=== PATIENT | male | born 1990 | race African-American/Black ===

== ENCOUNTER 2017-04-03 11:24 | Inpatient (IN) | payer SELFPAY ==
[2017-04-03] MEDS ORDERED: NIFEDIPINE CAP 10 MG PO ONE (11:44)
--- NOTE | 2017-04-03 11:44 | DR.GENAD ---
HPI - PCP Primary Care Physician: NFEdna - HPI Comment HPI Comment: PATIENT WOKE THIS AM WITH CHEST PAIN AND INCREASID SOB. PAIN GETTING WORSE. BP ELEVATED IN ED. HAVE HBP ANDNOT TAKING MED CURRENTLY. - Complaint/Symptoms Chief Complaint Doctors Comments: SOB, CHEST PAIN Chief Complaint:: PT C/O SOB WITH CP. PT STATES THE SOB WOKE HIM UP OUT OF SLEEP THIS AM, THEN STARTED HAVING RT SIDED CHEST PAIN. PT STATES THE PAIN IS NOT PRESENT AT CURRENT TIME, BUT THE PAIN HAS BEEN COMING AND GOING. - Nurses notes reviewed Nurses Notes Review: Yes - Source History Provided: Patient - Mode of Arrival Mode of Arrival: Ambulatory - Timing Onset of Chief Complaint: 04/03/17 Came on: Suddenly - Duration Duration: Constant Duration: Hours - Severity Severity: Moderate PMH - PMH Past Medical History: Yes Past Medical History: Hypertension Past Surgical History: No - Family History History of Family Medical Conditions: No - Social History Does patient currently use any type of tobacco product: Yes Have you used tobacco products in the last 12 months: Yes Type of Tobacco Use: Cigarettes Does any household member use tobacco: Yes Alcohol Use: None Do you use any recreational Drugs:: Yes (THC) Lives With: Family Lives Where: Home - infectious screening In the last 2 months have you had wt loss of >10#?: NO Have you had fever, night sweats or hemotysis?: No Have you traveled outside the country in the last 6 months?: No Isolation: Standard ROS - Review of Systems Constitutional: Weakness, Fatigue Eyes: negative: Eye Pain, Discharge ENTM: negative: Ear Pain, Nose Discharge, Nose Congestion, Throat Pain Respiratoy: negative: Productive Cough, Non-Productive Cough, Short of Breath, Wheezing, Hemoptysis Gastrointestinal/Abdominal: negative: Abdominal Pain, Nausea, Vomiting Genitourinary: negative: Dysuria, Frequency, Hematuria Neurological: Headache, Weakness, Dizziness Musculoskeletal: No Symptoms Reported Integumentary: No Symptoms Reported Hematologic/Lymphatic: No Symptoms Reported Endocrine: No Symptoms Reported All Other Systems: Reviewed and Negative PE - Vital Signs Vitals: Temperature 96.5 F Pulse Rate [Apical] 70 Pulse Rate [Right Radial] 109 Pulse Rate 114 Respiratory Rate 16 Blood Pressure [Right Arm] 146/89 Blood Pressure 212/155 O2 Sat by Pulse Oximetry 99 - General Limitations: No Limitations General Appearance: Alert - Head Head Exam: Normal Inspection - Eyes Eye exam: Normal Appearance - ENT ENT Exam: Normal External Ear Exam External Ear Exam: Normal External Inspection TM/Canal Exam: Bilateral Normal Nose Exam: Normal Nose Exam Mouth Exam: Normal Inspection Throat Exam: Normal Inspection - Neck Neck Exam: Trachea Midline. negative: Tenderness, Meningismus, Lymphadenopathy - Chest Chest Inspection: Symmetric Chest Wall Rise - Respiratory Respiratory Exam: Normal Lung Sounds Bilat Respiratory Exam: Bilateral Clear to Auscultation - Cardiovascular Cardiovascular Exam: Regular Rate, Normal Rhythm, Normal Heart Sounds - Abdominal Exam Abdominal Exam: Normal Bowel Sounds, Soft. negative: Tenderness - Extremities Extremities Exam: Normal Inspection - Back Back Exam: Normal Inspection - Neurologic Neurological Exam: Alert, Oriented X3, CN II-XII Intact, Normal Gait, Reflexes Normal. negative: Motor Sensory Deficit - Psychiatric Psychiatric Exam: Normal Affect, Normal Mood - Skin Skin Exam: Normal Color MDM - Differential Diagnosis Differential Diagnosis: CHEST, IA, PNEUMONIA, HYPERTENSION PE, PULMONARY EDEMA Course - Treatment Treatment: SEE ORDERS - Reevaluation 1st: Improved - Education/Counseling Education/Counseling: Patient, Education Educated On: Treatment, Diagnosis ROR - Labs Reviewed Laboratory Results Reviewed?: Yes Result Diagrams: 04/04/17 02:40 04/04/17 02:40 Laboratory: WBC 8.4 X10^3/uL (3.6-10.0) 04/03/17 11:53 RBC 5.25 X10^6/uL (4.7-6.0) 04/03/17 11:53 Hgb 12.3 g/dL (13.5-18.0) L 04/03/17 11:53 Hct 38.3 % (42.0-54.0) L 04/03/17 11:53 MCV 72.8 fL (80.0-100.0) L 04/03/17 11:53 MCH 23.4 pg (27.0-34.0) L 04/03/17 11:53 MCHC 32.2 g/dL (33.0-35.0) L 04/03/17 11:53 RDW 15.6 % (11.6-16.5) 04/03/17 11:53 Plt Count 397 X10^3/uL (150.0-450.0) 04/03/17 11:53 Plt Count Comment Adequate (ADEQUATE) 04/03/17 11:53 MPV 7.4 fL (7.4-11.0) 04/03/17 11:53 Neut % 60.4 % (42.0-75.0) 04/03/17 11:53 Lymph % 27.1 % (21.0-51.0) 04/03/17 11:53 [place] % 10.9 % (0.0-13.0) 04/03/17 11:53 Eos % 1.0 % (0.9-2.9) 04/03/17 11:53 Baso % 0.6 % (0.2-1.0) 04/03/17 11:53 Neut # 5.1 x10^3/uL (2.2-4.8) H 04/03/17 11:53 Lymph # 2.3 X10^3/uL (1.3-2.9) 04/03/17 11:53 [place] # 0.9 x10^3/uL (0.3-0.8) H 04/03/17 11:53 Eos # 0.1 x10^3/uL (0.0-0.2) 04/03/17 11:53 Baso # 0.0 X10^3/uL (0.0-0.1) 04/03/17 11:53 Absolute Nucleated RBC 0.0 /100WBC 04/03/17 11:53 Plt Morphology Comment Normal (NORMAL) 04/03/17 11:53 RBC Morphology Abnormal (NORMAL) 04/03/17 11:53 Hypochromasia Slight A 04/03/17 11:53 Microcytosis Slight A 04/03/17 11:53 INR Target Range - 04/03/17 11:53 INR 1.11 (0.8-1.3) 04/03/17 11:53 PTT 30.2 SECONDS (22.9-36.5) 04/03/17 11:53 PTT Comment - 04/03/17 11:53 D-Dimer 1210 ng/mL (0-400) H* 04/03/17 11:53 Sodium 143 mmol/L (136-145) 04/03/17 11:53 Corrected Sodium TNP 04/03/17 11:53 Potassium 4.0 mmol/L (3.5-5.1) 04/03/17 11:53 Chloride 104 mmol/L (98-107) 04/03/17 11:53 Carbon Dioxide 29.0 mmol/L (21-32) 04/03/17 11:53 BUN 14 mg/dL (7-18) 04/03/17 11:53 Creatinine 1.08 mg/dL (0.70-1.30) 04/03/17 11:53 Est GFR (MDRD) Af Amer > 60 (>60) 04/03/17 11:53 Est GFR (MDRD) Non-Af > 60 (>60) 04/03/17 11:53 Glucose 102 mg/dL (65-99) H 04/03/17 11:53 Calcium 8.3 mg/dL (8.5-10.1) L 04/03/17 11:53 Corrected Calcium TNP 04/03/17 11:53 Magnesium 1.7 mg/dL (1.7-2.9) 04/03/17 11:53 Total Bilirubin 0.40 mg/dL (0.2-1.0) 04/03/17 11:53 AST 84 Units/L (15-37) H 04/03/17 11:53 ALT 137 Units/L (12-78) H 04/03/17 11:53 Alkaline Phosphatase 85 Units/L (46-116) 04/03/17 11:53 Creatine Kinase 593 Units/L (39-308) H 04/03/17 17:19 CK-MB (CK-2) 2.1 ng/mL (0-4.0) 04/03/17 17:19 CK/CKMB % Calc 0.4 % (<4) 04/03/17 17:19 Troponin I 1.38 ng/mL (0-1.5) 04/03/17 17:19 Total Protein 8.0 g/dL (6.4-8.2) 04/03/17 11:53 Albumin 3.6 g/dL (3.4-5.0) 04/03/17 11:53 Globulin 4.4 g/dL (2.5-4.5) 04/03/17 11:53 Albumin/Globulin Ratio 0.8 Ratio (1.1-2.1) L 04/03/17 11:53 Specimen Type Clean catch urine 04/03/17 17:31 Urine Color Yellow (YELLOW) 04/03/17 17:31 Urine Appearance Clear (CLEAR) 04/03/17 17:31 Urine pH 7.0 (5.0 - 8.0) 04/03/17 17:31 Ur Specific [place] 1.005 (1.000-1.030) 04/03/17 17:31 Urine Protein Negative (NEGATIVE) 04/03/17 17:31 Urine Glucose (UA) Negative (NEGATIVE) 04/03/17 17:31 Urine Ketones Negative (NEGATIVE) 04/03/17 17:31 Urine Occult Blood Negative (NEGATIVE) 04/03/17 17:31 Urine Nitrite Negative (NEGATIVE) 04/03/17 17:31 Urine Bilirubin Negative (NEGATIVE) 04/03/17 17:31 Urine Urobilinogen Normal (NORMAL) 04/03/17 17:31 Ur Leukocyte Esterase Negative (NEGATIVE) 04/03/17 17:31 Urine RBC 0 /HPF (NEGATIVE) 04/03/17 17:31 Urine WBC 0 /HPF (NEGATIVE) 04/03/17 17:31 Ur Squamous Epith Cells Negative /HPF (NEGATIVE) 04/03/17 17:31 Urine Bacteria Negative /HPF (NEGATIVE) 04/03/17 17:31 Ur Culture Indicated? No/not indicated 04/03/17 17:31 Urine Opiates Screen Negative (NEG=<300) 04/03/17 17:31 Urine Methadone Screen Negative (NEG=<300) 04/03/17 17:31 Ur Barbiturates Screen Negative (NEG=<200) 04/03/17 17:31 Ur Phencyclidine Scrn Negative (NEG=<25) 04/03/17 17:31 Ur Amphetamines Screen Negative (NEG=<1000) 04/03/17 17:31 U Benzodiazepines Scrn Negative (NEG=<200) 04/03/17 17:31 Urine Cocaine Screen Negative (NEG=<300) 04/03/17 17:31 U Marijuana (THC) Screen Positive (NEG=<50) A 04/03/17 17:31 - XRAY XRAY Interpreted by: Radiologist XRAY Findings: REPORT DISCUSS WITH PATIENT. - Diagnosis Discharge Problem: Chest pain Qualifiers: Chest pain type: precordial pain Qualified Code(s): R07.2 - Precordial pain Hypertension Qualifiers: Hypertension type: essential hypertension Qualified Code(s): I10 - Essential ( primary) hypertension - Discharge Plan Disposition: ADMITTED INPATIENT Condition: Stable - Follow ups/Referrals - Instructions
--- NOTE | 2017-04-03 11:52 | RAD ---
Examination: Portable AP chest History: Chest pain SOB Findings: Cardiomegaly, widened mediastinum consistent with rotation and nonstandard projection. The lungs are grossly clear. The retrocardiac lung is not well visualized. There is no large pleural effu honorio or pneumothorax. Impression: Cardiac enlargement, no acute process. Standard views suggested for more definitive evalu ation when condition permits. Reported By:
[2017-04-03] MEDS ORDERED: NIFEDIPINE CAP 10 MG ONE (11:55)
[2017-04-03 12:06] LABS: BASOPHILS % (AUTO) 0.6 % (0.2-1.0); EOSINOPHILS # (AUTO) 0.1 x10^3/uL (0.0-0.2); HEMATOCRIT 38.3 % (42.0-54.0); HEMOGLOBIN 12.3 g/dL (13.5-18.0); LYMPHOCYTES # (AUTO) 2.3 X10^3/uL (1.3-2.9); LYMPHOCYTES % (AUTO) 27.1 % (21.0-51.0); MEAN CORPUSCULAR HEMOGLOBIN 23.4 pg (27.0-34.0); MEAN CORPUSCULAR HGB CONC 32.2 g/dL (33.0-35.0); MEAN CORPUSCULAR VOLUME 72.8 fL (80.0-100.0); MEAN PLATELET VOLUME 7.4 fL (7.4-11.0); MONOCYTES # (AUTO) 0.9 x10^3/uL (0.3-0.8); MONOCYTES % (AUTO) 10.9 % (0.0-13.0); NEUTROPHILS # (AUTO) 5.1 x10^3/uL (2.2-4.8); NEUTROPHILS % (AUTO) 60.4 % (42.0-75.0); PLATELET COUNT 397 X10^3/uL (150.0-450.0); RED BLOOD COUNT 5.25 X10^6/uL (4.7-6.0); RED CELL DISTRIBUTION WIDTH 15.6 % (11.6-16.5); WHITE BLOOD COUNT 8.4 X10^3/uL (3.6-10.0)
[2017-04-03 12:18] LABS: HYPOCHROMASIA SLIGHT; MICROCYTOSIS SLIGHT; PLATELET MORPHOLOGY COMMENT NORMAL (NORMAL)
[2017-04-03 12:21] LABS: BLOOD UREA NITROGEN 14 mg/dL (7-18); CALCIUM 8.3 mg/dL (8.5-10.1); CHLORIDE 104 mmol/L (98-107); CREATININE 1.08 mg/dL (0.70-1.30); SODIUM 143 mmol/L (136-145); TROPONIN I 1.41 ng/mL (0-1.5); eGFR BLACK RACES > 60 (>60); eGFR NON BLACK RACES > 60 (>60)
[2017-04-03 12:26] LABS: ALANINE AMINOTRANSFERASE 137 Units/L (12-78); ALBUMIN 3.6 g/dL (3.4-5.0); ALKALINE PHOSPHATASE 85 Units/L (46-116); ASPARTATE AMINO TRANSFERASE 84 Units/L (15-37); CKMB % 0.4 % (<4); CREATINE KINASE 613 Units/L (39-308); CREATINE KINASE MB 2.3 ng/mL (0-4.0); MAGNESIUM 1.7 mg/dL (1.7-2.9)
--- NOTE | 2017-04-03 16:35 | CT ---
CTA chest Indication: Chest pain, shortness of breath, elevated D-dimer Technique: Helical CT images of the chest were obtained with IV contrast. Reformatted images in the c oronal and sagittal planes and 3D MIP images were also generated for review. Comparison: Radiograph from same day Findings: Contrast bolus timing is adequate for detection of PTE. No pulmonary thromboembolus is iden tified. There is no pulmonary arterial dilatation or evidence of right heart strain. The heart is mod erately enlarged without pericardial effusion. The thoracic aorta and great vessels are normal in con tour and caliber. The central airways are patent. There is no lymphadenopathy. There are patchy tree- in-bud opacities within the right lower lobe. The remainder of the lungs are clear. No pleural effusi on or pneumothorax is identified. Limited arterial phase images of the upper abdomen demonstrate diffuse hepatic steatosis. No aggressi ve osseous lesions are identified. Impression: No PTE identified. Tree-in-bud opacities within the right lower lobe, compatible with infectious or inflammatory pneumon itis. Moderate cardiomegaly and diffuse hepatic steatosis Reported By:
[2017-04-03] MEDS ORDERED: LOPRESSOR INJ 5 MG AMP IVP ONE ×2 (16:49→21:31)
[2017-04-03] MEDS ORDERED: NITROGLYCERIN IV PREMIX 50 MG 50 MG/250 ML BAG IV PRN ×2 (16:51→21:42)
[2017-04-03] MEDS ORDERED: PLAVIX PO SCH (17:00)
[2017-04-03] MEDS ORDERED: HEPARIN SODIUM INJ 5000 UNITS ONE (17:33)
[2017-04-03] MEDS ORDERED: ZOFRAN INJ 4 MG VIAL ONE (17:44)
[2017-04-03] MEDS ORDERED: NS 1000 ML 1,000 ML ONE (17:44)
[2017-04-03] MEDS ORDERED: MORPHINE SULFATE INJ 4 MG ONE (17:45)
[2017-04-03 17:47] LABS: BILIRUBIN,URINE NEGATIVE (NEGATIVE); BLOOD/HEMOGLOBIN,URINE NEGATIVE (NEGATIVE); GLUCOSE, URINE NEGATIVE (NEGATIVE); KETONES,URINE NEGATIVE (NEGATIVE); LEUKOCYTE ESTERASE ,URINE NEGATIVE (NEGATIVE); NITRITES,URINE NEGATIVE (NEGATIVE); PROTEIN,URINE NEGATIVE (NEGATIVE); UROBILINOGEN,URINE NORMAL (NORMAL)
[2017-04-03] MEDS: HEPARIN SODIUM IN D5W 25,000 UNITS/500 ML BAG IV PRN (17:49)
[2017-04-03 17:50] LABS: CKMB % 0.4 % (<4); CREATINE KINASE MB 2.1 ng/mL (0-4.0)
[2017-04-03] MEDS ORDERED: MORPHINE SULFATE INJ 4 MG IVP ONE (17:51)
[2017-04-03] MEDS ORDERED: ZOFRAN INJ 4 MG VIAL IVP ONE (17:51)
[2017-04-03 17:57] LABS: TROPONIN I 1.38 ng/mL (0-1.5)
[2017-04-03 17:58] LABS: APPEARANCE,URINE CLEAR (CLEAR); BACTERIA,URINE NEGATIVE /HPF (NEGATIVE); COLOR,URINE YELLOW (YELLOW); RBC,URINE 0 /HPF (NEGATIVE); SQUAMOUS EPITHELIAL CELL,UR NEGATIVE /HPF (NEGATIVE)
[2017-04-03] MEDS ORDERED: NS 1000 ML 1,000 ML IV SCH (18:00)
[2017-04-03] MEDS ORDERED: CATAPRES TAB 0.3 MG PO ONE (19:30)
[2017-04-03] MEDS ORDERED: CATAPRES TAB 0.3 MG ONE (19:32)
[2017-04-03 21:02] LABS: CKMB % 0.4 % (<4); CREATINE KINASE MB 1.9 ng/mL (0-4.0); TROPONIN I 1.31 ng/mL (0-1.5)
[2017-04-03] MEDS ORDERED: NORMODYNE INJ 100 MG VIAL IVP ONE (21:34)
[2017-04-03] MEDS ORDERED: NORMODYNE INJ 20 MG VIAL ONE (21:37)
[2017-04-03] MEDS ORDERED: PLAVIX PO STA (21:38)
[2017-04-03] MEDS ORDERED: ATIVAN TAB 1 MG PO PRN (21:42)
[2017-04-03] MEDS ORDERED: HEPARIN SODIUM IN D5W 25,000 UNITS/500 ML BAG IV PRN (21:42)
[2017-04-03] MEDS ORDERED: MORPHINE SULFATE INJ 2 MG INJ IVP PRN (21:42)
[2017-04-03] MEDS ORDERED: FLUVIRIN IM ONE (23:44)
[2017-04-04] MEDS ORDERED: HEPARIN SODIUM INJ 5000 UNITS IVP ONE ×2 (01:41→02:13)
[2017-04-04] MEDS ORDERED: PLAVIX ONE (01:50)
[2017-04-04] MEDS ORDERED: HEPARIN SODIUM INJ 5000 UNITS ONE (01:50)
[2017-04-04] MEDS: ZESTRIL TAB 10 MG PO SCH ×2 (02:09→08:25)
[2017-04-04 03:20] LABS: ALANINE AMINOTRANSFERASE 107 Units/L (12-78); ALKALINE PHOSPHATASE 65 Units/L (46-116); ASPARTATE AMINO TRANSFERASE 47 Units/L (15-37); BLOOD UREA NITROGEN 13 mg/dL (7-18); CALCIUM 7.6 mg/dL (8.5-10.1); CARBON DIOXIDE 28.1 mmol/L (21-32); CHLORIDE 102 mmol/L (98-107); CHOL/HDL RATIO 5.7 (0.0-5.0); CHOLESTEROL 171 mg/dL (0-200); COR CA(FOR HYPOALB) 8.4 mg/dL (8.5-10.1); COR NA(FOR HYPERGLY) 142 mmol/L (136-145); CREATININE 1.19 mg/dL (0.70-1.30); HDL CHOLESTEROL 30 mg/dL (40-60); SODIUM 140 mmol/L (136-145); TOTAL PROTEIN 6.8 g/dL (6.4-8.2); TRIGLYCERIDES 227 mg/dL (0-150); eGFR BLACK RACES > 60 (>60); eGFR NON BLACK RACES > 60 (>60)
[2017-04-04 03:21] LABS: BASOPHILS # (AUTO) 0.1 X10^3/uL (0.0-0.1); EOSINOPHILS # (AUTO) 0.1 x10^3/uL (0.0-0.2); EOSINOPHILS % (AUTO) 1.1 % (0.9-2.9); HEMATOCRIT 33.8 % (42.0-54.0); HEMOGLOBIN 10.8 g/dL (13.5-18.0); LYMPHOCYTES # (AUTO) 2.6 X10^3/uL (1.3-2.9); LYMPHOCYTES % (AUTO) 27.3 % (21.0-51.0); MEAN CORPUSCULAR HEMOGLOBIN 23.2 pg (27.0-34.0); MEAN CORPUSCULAR HGB CONC 32.1 g/dL (33.0-35.0); MEAN CORPUSCULAR VOLUME 72.2 fL (80.0-100.0); MEAN PLATELET VOLUME 7.9 fL (7.4-11.0); MONOCYTES # (AUTO) 0.7 x10^3/uL (0.3-0.8); NEUTROPHILS # (AUTO) 6.1 x10^3/uL (2.2-4.8); NEUTROPHILS % (AUTO) 63.6 % (42.0-75.0); PLATELET COUNT 351 X10^3/uL (150.0-450.0); RED BLOOD COUNT 4.67 X10^6/uL (4.7-6.0); RED CELL DISTRIBUTION WIDTH 15.5 % (11.6-16.5); WHITE BLOOD COUNT 9.6 X10^3/uL (3.6-10.0)
[2017-04-04 03:32] LABS: CKMB % 0.4 % (<4); CREATINE KINASE MB 1.6 ng/mL (0-4.0); TROPONIN I 1.09 ng/mL (0-1.5)
[2017-04-04 03:37] LABS: HYPOCHROMASIA 1+; MICROCYTOSIS SLIGHT; PLATELET MORPHOLOGY COMMENT NORMAL (NORMAL)
[2017-04-04] MEDS: HEPARIN SODIUM IN D5W 25,000 UNITS/500 ML BAG IV PRN (08:25)
--- NOTE | 2017-04-04 08:34 | RAD ---
Examination: Portable AP chest History: SOB Comparison reference 04/03/2017 Findings: Moderate cardiomegaly with essentially clear lungs. Overlying anatomy obscures the cervicot horacic junction and superior mediastinum. Impression: Cardiac enlargement, no acute process identified. Reported By:
[2017-04-04] MEDS ORDERED: PLAVIX PO SCH (09:00)
[2017-04-04] MEDS ORDERED: LOPRESSOR TAB 50 MG PO SCH (09:00)
[2017-04-04] MEDS ORDERED: PROTONIX INJ 40 MG VIAL IVP SCH (09:00)
[2017-04-04] MEDS ORDERED: FLUVIRIN IM ONE (09:09)
[2017-04-04 10:47] LABS: CKMB % 0.5 % (<4); CREATINE KINASE MB 1.9 ng/mL (0-4.0); TROPONIN I 0.98 ng/mL (0-1.5)
[2017-04-04 11:40] VITALS: BMI 47.5
[2017-04-04] MEDS ORDERED: ECOTRIN TAB 325 MG PO SCH (12:00)
[2017-04-04 14:56] VITALS: BP 140/99
[2017-04-04] MEDS ORDERED: ZESTRIL TAB 10 MG PO SCH (21:00)
== END 2017-04-04 14:35 | disposition home or self-care (01) | DRG 313 ==
LOC: EDBD 11:39 → ER 11:39 → ICU 21:40
PROVIDERS: ADMIT Internal Medicine; ATTEND Internal Medicine
PROC: 3E0234Z Introduction of Serum, Toxoid and Vaccine into Muscle, Percutaneous Approach (ICD-10-PCS; principal; 2017-04-04)
DX: R07.2 Precordial pain (principal); I24.8 Other forms of acute ischemic heart disease; R06.02 Shortness of breath; I10 Essential (primary) hypertension; R94.31 Abnormal electrocardiogram [ECG] [EKG]; F12.90 Cannabis use, unspecified, uncomplicated; R94.39 Abnormal result of other cardiovascular function study; Z23 Encounter for immunization
CPT/HCPCS: 36415; 71010; 71275; 80053; 80061; 80307; 81001; 82550; 82553; 83735; 84484; 85025; 85378; 85610; 85730; 90686; 93005; 93010; 93041; 94760; 96365; 96367; 96374; 96375; 99284; 99285; A4216; A4222; C9113; G0434; J1644; J2270; J2405; J3490

== ENCOUNTER 2017-06-25 08:59 | Emergency (ER) | payer SELFPAY ==
[2017-06-25 09:04] VITALS: BMI 46.3
[2017-06-25] MEDS ORDERED: CATAPRES TAB 0.2 MG PO ONE (09:31)
[2017-06-25] MEDS ORDERED: CATAPRES TAB 0.2 MG ONE (09:32)
--- NOTE | 2017-06-25 09:35 | DR.GENAD ---
HPI - PCP Primary Care Physician: NFD - Complaint/Symptoms Chief Complaint Doctors Comments: Patient presents for evaluatin of blood pressure. He reports that the BP is elevated. He is out of medication. He has no primary care physician. he reports to take hydralazine, Hctz,Lisinopril and corez. Chief Complaint:: PT C/O SOB AND HIGH BLOOD PRESSURE. PT STATES HE RAN OUT OF HIS BLOOD PRESSURE MEDICATION YESTERDAY AND GOT THEM REFILLED, AND HE HAS TAKEN HIS MEDICATIONS THEY HAVE JUST NOT KICKED IN YET AND HE IS WORRIED. PT DENIES HEADACHE. NAD NOTED AT THIS TIME. PT IS NOT NOTED TO BE SOB AT THIS TIME. - Source History Provided: Patient - Mode of Arrival Mode of Arrival: Ambulatory - Timing Onset of Chief Complaint: 06/25/17 PMH - PMH Past Medical History: Yes Past Medical History: Hypertension Past Surgical History: No - Family History History of Family Medical Conditions: Yes Family Medical History: Hypertension - Social History Does patient currently use any type of tobacco product: No Have you used tobacco products in the last 12 months: No Type of Tobacco Use: None Does any household member use tobacco: Yes Alcohol Use: None Do you use any recreational Drugs:: Yes (THC) Lives With: Family Lives Where: Home - infectious screening In the last 2 months have you had wt loss of >10#?: NO Have you had fever, night sweats or hemotysis?: No Have you traveled outside the country in the last 6 months?: No Isolation: Standard ROS - Review of Systems Eyes: No Symptoms Reported ENTM: No Symptoms Reported Respiratoy: No Symptoms Reported Cardiovascular: No Symptoms Reported Gastrointestinal/Abdominal: No Symptoms Reported Genitourinary: No Symptoms Reported Neurological: No Symptoms Reported Musculoskeletal: No Symptoms Reported Integumentary: No Symptoms Reported Hematologic/Lymphatic: No Symptoms Reported Endocrine: No Symptoms Reported Psychiatric: No Symptoms Reported All Other Systems: Reviewed and Negative PE - Vital Signs Vitals: Temperature 97.2 F Pulse Rate [Right Radial] 100 Pulse Rate 106 Respiratory Rate 20 Blood Pressure [Right Arm] 179/133 Blood Pressure 185/123 O2 Sat by Pulse Oximetry 100 - General General Appearance: Alert, In No Apparent Distress - Head Head Exam: Normal Inspection, Atraumatic - Eyes Eye exam: Normal Appearance, PERRL, EOMI - ENT ENT Exam: Normal Exam External Ear Exam: Normal External Inspection TM/Canal Exam: Bilateral Normal Nose Exam: Normal Nose Exam Mouth Exam: Normal Inspection Throat Exam: Normal Inspection - Neck Neck Exam: Normal Inspection - Chest Chest Inspection: Normal Inspection - Respiratory Respiratory Exam: Normal Lung Sounds Bilat Respiratory Exam: Bilateral Clear to Auscultation - Cardiovascular Cardiovascular Exam: Regular Rate, Normal Rhythm - Abdominal Exam Abdominal Exam: Normal Inspection Abdominal Tenderness: negative: RUQ, RLQ, LUQ, LLQ, Epigastrium, Suprapubic, Diffuse, Mild, Moderate, Severe, Other - Extremities Extremities Exam: Normal Inspection, Full ROM - Back Back Exam: Normal Inspection - Neurologic Neurological Exam: Alert, Oriented X3, CN II-XII Intact - Psychiatric Psychiatric Exam: Normal Affect - Skin Skin Exam: Warm, Dry, Intact Course - Reevaluation 1st: Improved - Education/Counseling Educated On: Treatment, Diagnosis, Needs for Follow Up ROR - XRAY XRAY Interpreted by: Radiologist (Chest: no acute cardiopulmonary disease) - Diagnosis Discharge Problem: Hypertension Qualifiers: Hypertension type: essential hypertension Qualified Code(s): I10 - Essential ( primary) hypertension - Discharge Plan Condition: Stable - Follow ups/Referrals Follow ups/Referrals: NFD,None [Primary Care Provider] - 3 days - Instructions
--- NOTE | 2017-06-25 09:55 | RAD ---
HISTORY: Chest pain Study: Single view of the chest. Comparison: None. Findings: Cardiomegaly. No focal consolidations, pleural effusions or pneumothorax. Osseous structures demonstr ate no acute abnormality. IMPRESSION: 1. No acute cardiopulmonary process. Reported By:
[2017-06-25 11:00] LABS: BASOPHILS # (AUTO) 0.1 X10^3/uL (0.0-0.1); BASOPHILS % (AUTO) 1.2 % (0.2-1.0); EOSINOPHILS # (AUTO) 0.1 x10^3/uL (0.0-0.2); EOSINOPHILS % (AUTO) 0.7 % (0.9-2.9); HEMATOCRIT 35.3 % (42.0-54.0); HEMOGLOBIN 11.5 g/dL (13.5-18.0); LYMPHOCYTES # (AUTO) 1.8 X10^3/uL (1.3-2.9); MEAN CORPUSCULAR HEMOGLOBIN 22.8 pg (27.0-34.0); MEAN CORPUSCULAR HGB CONC 32.5 g/dL (33.0-35.0); MEAN CORPUSCULAR VOLUME 70.2 fL (80.0-100.0); MEAN PLATELET VOLUME 7.9 fL (7.4-11.0); MONOCYTES # (AUTO) 0.7 x10^3/uL (0.3-0.8); MONOCYTES % (AUTO) 8.1 % (0.0-13.0); NEUTROPHILS # (AUTO) 5.6 x10^3/uL (2.2-4.8); PLATELET COUNT 313 X10^3/uL (150.0-450.0); RED BLOOD COUNT 5.02 X10^6/uL (4.7-6.0); RED CELL DISTRIBUTION WIDTH 16.9 % (11.6-16.5); WHITE BLOOD COUNT 8.3 X10^3/uL (3.6-10.0)
[2017-06-25 11:08] LABS: ALANINE AMINOTRANSFERASE 100 Units/L (12-78); ALBUMIN 3.5 g/dL (3.4-5.0); ALKALINE PHOSPHATASE 77 Units/L (46-116); ASPARTATE AMINO TRANSFERASE 61 Units/L (15-37); BLOOD UREA NITROGEN 16 mg/dL (7-18); CARBON DIOXIDE 27.3 mmol/L (21-32); CHLORIDE 102 mmol/L (98-107); COR NA(FOR HYPERGLY) 140 mmol/L (136-145); CREATININE 1.08 mg/dL (0.70-1.30); SODIUM 140 mmol/L (136-145); TOTAL PROTEIN 8.1 g/dL (6.4-8.2); eGFR BLACK RACES > 60 (>60); eGFR NON BLACK RACES > 60 (>60)
[2017-06-25 11:17] LABS: HYPOCHROMASIA 1+; PLATELET MORPHOLOGY COMMENT NORMAL (NORMAL)
[2017-06-25 11:32] VITALS: BP 180/125
--- NOTE | 2017-06-25 12:20 | CT ---
HISTORY: Shortness of breath, elevated D-dimer Study: CTA chest with contrast for pulmonary embolus Comparison: 04/03/2017 Technique: Axial post-contrast images with coronal, sagittal, and three-dimensional maximum intensity projection images obtained and evaluated. Dose reduction procedures were used with mA/kv adjusted fo r body size. Findings: There is no evidence for acute pulmonary thromboembolic disease. Examination of the mediastinum demon strated no evidence for mediastinal masses, enlarged mediastinal adenopathy or enlarged hilar adenopa thy. The thoracic aorta is normal. The heart remains markedly enlarged. No pleural effusions are iden tified. No chest wall or axillary abnormality is identified. Those portions of the upper abdominal or falguni visualized were within normal limits with the exception of fatty infiltration of the liver. Exam ination of the lung calhoun demonstrated no evidence for nodules, masses, alveolar infiltrates, areas of consolidation, peribronchial thickening, or bronchiectasis. IMPRESSION: No evidence for acute pulmonary thromboembolic disease Cardiomegaly without definite congestive heart failure Lungs clear Fatty infiltration of the liver Reported By:
== END 2017-06-25 12:43 | disposition home or self-care (01) ==
LOC: ER 09:07
DX: I10 Essential (primary) hypertension (principal)
CPT/HCPCS: 36415; 71045; 71275; 80053; 85025; 85378; 96365; 96374; 99283; A4222

== ENCOUNTER 2018-10-25 15:51 | Observation (INO) ==
[2018-10-25] MEDS ORDERED: CATAPRES TAB 0.1 MG PO ONE ×3 (16:05→17:11)
[2018-10-25] MEDS ORDERED: CATAPRES TAB 0.1 MG ONE ×3 (16:06→17:14)
[2018-10-25 16:29] LABS: BASOPHILS % (AUTO) 0.6 % (0.2-1.0); EOSINOPHILS # (AUTO) 0.1 x10^3/uL (0.0-0.2); HEMATOCRIT 35.3 % (42.0-54.0); HEMOGLOBIN 11.4 g/dL (13.5-18.0); LYMPHOCYTES # (AUTO) 1.4 X10^3/uL (1.3-2.9); LYMPHOCYTES % (AUTO) 20.2 % (21.0-51.0); MEAN CORPUSCULAR HEMOGLOBIN 24.1 pg (27.0-34.0); MEAN CORPUSCULAR HGB CONC 32.4 g/dL (33.0-35.0); MEAN CORPUSCULAR VOLUME 74.3 fL (80.0-100.0); MEAN PLATELET VOLUME 7.1 fL (7.4-11.0); MONOCYTES # (AUTO) 0.6 x10^3/uL (0.3-0.8); MONOCYTES % (AUTO) 8.1 % (0.0-13.0); NEUTROPHILS % (AUTO) 70.1 % (42.0-75.0); PLATELET COUNT 312 X10^3/uL (150.0-450.0); RED BLOOD COUNT 4.75 X10^6/uL (4.7-6.0); RED CELL DISTRIBUTION WIDTH 16.1 % (11.6-16.5); WHITE BLOOD COUNT 7.1 X10^3/uL (3.6-10.0)
[2018-10-25 16:39] LABS: ALANINE AMINOTRANSFERASE 29 Units/L (12-78); ALBUMIN 3.8 g/dL (3.4-5.0); ALKALINE PHOSPHATASE 53 Units/L (46-116); ASPARTATE AMINO TRANSFERASE 21 Units/L (15-37); BLOOD UREA NITROGEN 18 mg/dL (7-18); CALCIUM 8.4 mg/dL (8.5-10.1); CARBON DIOXIDE 27.7 mmol/L (21-32); CHLORIDE 103 mmol/L (98-107); CREATININE 1.27 mg/dL (0.70-1.30); SODIUM 141 mmol/L (136-145); eGFR NON BLACK RACES > 60 (>60)
[2018-10-25 16:43] LABS: PLATELET MORPHOLOGY COMMENT NORMAL (NORMAL); POIKILOCYTOSIS SLIGHT
--- NOTE | 2018-10-25 17:04 | DR.DIZZY ---
HPI Time seen Time Seen by Provider: 10/25/18 16:51 PCP Primary Care Physician: ILYA MARAVILLA HPI Comment HPI Comment: Dizzy and almost passed out while at work. PMH of hypertension. No history of cardiovascular disease. Complaint Chief Complaint Doctor Comments: Got hot while at work in non air conditioned facility according to worker. He became dizzy and and hot temperature in the 90s. Chief Complaint:: PT. WAS WORKING AT [employer] WHERE HE GOT TOO HOT AND ALMOST PASSED OUT. PT. STATES HE HAS BEEN DRINKING WATER ALL DAY BUT HAS NOT EATEN ANYTHING. PT. IS COOL AND CLAMMY UPON ARRIVAL TO ER. PT. C/O HEADACHE. Source History Provided: Patient and EMS Mode of Arrival Mode of Arrival: EMS Timing Onset of Chief Complaint: 10/25/18 Context Stroke Symptoms: None PMH PMH Past Medical History: Yes Past Medical History: Hypertension Past Surgical History: No Surgical History: No History Family History History of Family Medical Conditions: Yes Family Medical History: Hypertension Social History Does patient currently use any type of tobacco product: Yes Have you used tobacco products in the last 12 months: Yes Type of Tobacco Use: Cigarettes Does any household member use tobacco: Yes Alcohol Use: Occasionally Do you use any recreational Drugs:: No Lives With: Significant Other Lives Where: Home infectious screening In the last 2 months have you had wt loss of >10#?: NO Have you had fever, night sweats or hemotysis?: No Have you traveled outside the country in the last 6 months?: No Isolation: Standard ROS Review of Systems Constitutional: No Symptoms Reported Eyes: No Symptoms Reported ENTM: No Symptoms Reported Respiratoy: No Symptoms Reported Cardiovascular: No Symptoms Reported Gastrointestinal/Abdominal: No Symptoms Reported Genitourinary: No Symptoms Reported Neurological: Dizziness Musculoskeletal: No Symptoms Reported Integumentary: No Symptoms Reported Hematologic/Lymphatic: No Symptoms Reported Endocrine: No Symptoms Reported Psychiatric: No Symptoms Reported All Other Systems: Reviewed and Negative PE Vital Signs Vitals: Temperature 98.0 F Pulse Rate [Apical] 100 Pulse Rate 82 Respiratory Rate 25 Blood Pressure [Left Arm] 203/118 Blood Pressure [Right Arm] 208/131 Blood Pressure 150/98 O2 Sat by Pulse Oximetry 100 General Limitations: No Limitations and Physical Limitation (obesity) General Appearance: Alert, In No Apparent Distress, Anxious and Obese Head Head Exam: Normal Inspection, Atraumatic and Normocephalic Eyes Eye exam: Normal Appearance, PERRL, EOMI and Scleral Icterus Pupils: Regular, Round: Bilateral Sclera/Conjunctival: Normal Inspection: Bilateral Anterior Chamber: Normal Inspection: Bilateral ENT ENT Exam: Normal Exam, Normal Oropharynx and Normal External Ear Exam Neck Neck Exam: Normal Inspection and Full ROM Chest Chest Inspection: Normal Inspection, Symmetric Chest Wall Rise and Tenderness Respiratory Respiratory Exam: Normal Lung Sounds Bilat Respiratory Exam: Bilateral: Clear to Auscultation Abdominal Exam Abdominal Exam: Normal Inspection (protuberant), Normal Bowel Sounds, Soft and Distention; negative Guarding and Hyperactive Bowel Sounds Rectal Rectal Exam: Deferred Extremeties Extremities Exam: Normal Inspection and Full ROM Back Back Exam: Normal Inspection and Full ROM Neurologic Neurological Exam: Alert, Oriented X3 and CN II-XII Intact Cranial Nerve Exam: EOM Function (II, III, IV, ): Normal Cerebellar Function: Finger to Nose: Normal and Heel to Key: Normal Cerebellar Function: Normal Gait Motor Strength - LUE: 4/5 Motor Strength - RUE: 4/5 Motor Strength - RLE: 1/5 Psychiatric Psychiatric Exam: Normal Affect and Normal Mood Skin Skin Exam: Warm, Dry and Intact MDM Differential Diagnosis Differential Diagnosis: CVA, Dehydration, Electrolyte disorder, Myocardial infarction and TIA COURSE Treatment Treatment: Hypertensive: clonidine 0.1x3 Reevaluation 1st: Improved Consultation Called: 18:38 Consultation Comments: Dr. West agreed to admit to his service for further treatment ROR Labs Reviewed Result Diagrams: 10/25/18 16:20 10/25/18 16:20 Laboratory: WBC 7.1 X10^3/uL (3.6-10.0) 10/25/18 16:20 RBC 4.75 X10^6/uL (4.7-6.0) 10/25/18 16:20 Hgb 11.4 g/dL (13.5-18.0) L 10/25/18 16:20 Hct 35.3 % (42.0-54.0) L 10/25/18 16:20 MCV 74.3 fL (80.0-100.0) L 10/25/18 16:20 MCH 24.1 pg (27.0-34.0) L 10/25/18 16:20 MCHC 32.4 g/dL (33.0-35.0) L 10/25/18 16:20 RDW 16.1 % (11.6-16.5) 10/25/18 16:20 Plt Count 312 X10^3/uL (150.0-450.0) 10/25/18 16:20 Plt Count Comment Adequate (ADEQUATE) 10/25/18 16:20 MPV 7.1 fL (7.4-11.0) L 10/25/18 16:20 Neut % (Auto) 70.1 % (42.0-75.0) 10/25/18 16:20 Lymph % (Auto) 20.2 % (21.0-51.0) L 10/25/18 16:20 [place] % (Auto) 8.1 % (0.0-13.0) 10/25/18 16:20 Eos % (Auto) 1.0 % (0.9-2.9) 10/25/18 16:20 Baso % (Auto) 0.6 % (0.2-1.0) 10/25/18 16:20 Neut # (Auto) 5.0 x10^3/uL (2.2-4.8) H 10/25/18 16:20 Lymph # (Auto) 1.4 X10^3/uL (1.3-2.9) 10/25/18 16:20 [place] # (Auto) 0.6 x10^3/uL (0.3-0.8) 10/25/18 16:20 Eos # (Auto) 0.1 x10^3/uL (0.0-0.2) 10/25/18 16:20 Baso # (Auto) 0.0 X10^3/uL (0.0-0.1) 10/25/18 16:20 Absolute Nucleated RBC 0.0 /100WBC 10/25/18 16:20 Plt Morphology Comment Normal (NORMAL) 10/25/18 16:20 RBC Morphology Abnormal (NORMAL) 10/25/18 16:20 Poikilocytosis Slight A 10/25/18 16:20 Basophilic Stippling Slight A 10/25/18 16:20 Sodium 141 mmol/L (136-145) 10/25/18 16:20 Corrected Sodium TNP 10/25/18 16:20 Potassium 3.3 mmol/L (3.5-5.1) L 10/25/18 16:20 Chloride 103 mmol/L (98-107) 10/25/18 16:20 Carbon Dioxide 27.7 mmol/L (21-32) 10/25/18 16:20 BUN 18 mg/dL (7-18) 10/25/18 16:20 Creatinine 1.27 mg/dL (0.70-1.30) 10/25/18 16:20 Est GFR (MDRD) Af Amer > 60 (>60) 10/25/18 16:20 Est GFR (MDRD) Non-Af > 60 (>60) 10/25/18 16:20 Glucose 97 mg/dL (65-99) 10/25/18 16:20 Calcium 8.4 mg/dL (8.5-10.1) L 10/25/18 16:20 Corrected Calcium TNP 10/25/18 16:20 Total Bilirubin 0.30 mg/dL (0.2-1.0) 10/25/18 16:20 AST 21 Units/L (15-37) 10/25/18 16:20 ALT 29 Units/L (12-78) 10/25/18 16:20 Alkaline Phosphatase 53 Units/L (46-116) 10/25/18 16:20 Creatine Kinase 506 Units/L (39-308) H 10/25/18 22:21 CK-MB (CK-2) 2.7 ng/mL (0-4.0) 10/25/18 22:21 CK/CKMB % Calc 0.5 % (<4) 10/25/18 22:21 Troponin I 1.00 ng/mL (0-1.5) 10/25/18 22:21 Total Protein 8.0 g/dL (6.4-8.2) 10/25/18 16:20 Albumin 3.8 g/dL (3.4-5.0) 10/25/18 16:20 Globulin 4.2 g/dL (2.5-4.5) 10/25/18 16:20 Albumin/Globulin Ratio 0.9 Ratio (1.1-2.1) L 10/25/18 16:20 Specimen Type Random urine 10/25/18 17:04 Urine Color Yellow (YELLOW) 10/25/18 17:04 Urine Appearance Clear (CLEAR) 10/25/18 17:04 Urine pH 6.0 (5.0 - 8.0) 10/25/18 17:04 Ur Specific [place] 1.015 (1.000-1.030) 10/25/18 17:04 Urine Protein 2+ (NEGATIVE) 10/25/18 17:04 Urine Glucose (UA) Negative (NEGATIVE) 10/25/18 17:04 Urine Ketones Negative (NEGATIVE) 10/25/18 17:04 Urine Occult Blood Negative (NEGATIVE) 10/25/18 17:04 Urine Nitrite Negative (NEGATIVE) 10/25/18 17:04 Urine Bilirubin Negative (NEGATIVE) 10/25/18 17:04 Urine Urobilinogen Normal (NORMAL) 10/25/18 17:04 Ur Leukocyte Esterase Negative (NEGATIVE) 10/25/18 17:04 Urine RBC 0-2 /HPF (NONE SEEN) 10/25/18 17:04 Urine WBC 0-2 /HPF (NONE SEEN) 10/25/18 17:04 Ur Squamous Epith Cells Negative /HPF (NEGATIVE) 10/25/18 17:04 Urine Bacteria Negative /HPF (NEGATIVE) 10/25/18 17:04 Hyaline Casts Few /LPF (NEGATIVE) 10/25/18 17:04 Urine Mucus Moderate /HPF (NEGATIVE) 10/25/18 17:04 Ur Culture Indicated? No/not indicated 10/25/18 17:04 Urine Opiates Screen Negative (NEG=<300) 10/25/18 17:03 Urine Methadone Screen Negative (NEG=<300) 10/25/18 17:03 Ur Barbiturates Screen Negative (NEG=<200) 10/25/18 17:03 Ur Phencyclidine Scrn Negative (NEG=<25) 10/25/18 17:03 Ur Amphetamines Screen Negative (NEG=<1000) 10/25/18 17:03 U Benzodiazepines Scrn Negative (NEG=<200) 10/25/18 17:03 Urine Cocaine Screen Negative (NEG=<300) 10/25/18 17:03 U Marijuana (THC) Screen Positive (NEG=<50) A 10/25/18 17:03 Other Results Comments: Chest; Generalized cardiomegaly is noted. However no significant vascular congestion is seen. Lungs are clear with no infiltrate or significant effusion on eihter side. Bony thorax is unremarkable as well. XRAY XRAY Interpreted by: Radiologist Opioid Opioid Risk Tool Total: 0 Total Score Risk Category: Low Risk Copyright: Jose R ROBERTS predicting aberrant behaviors Diagnosis Discharge Problem: Hypertensive urgency ADDITIONAL NOTES Additional Notes Additional Notes: BP 151/104 at admission responded to clonidine 0.3mg x3.
[2018-10-25 17:13] LABS: BILIRUBIN,URINE NEGATIVE (NEGATIVE); BLOOD/HEMOGLOBIN,URINE NEGATIVE (NEGATIVE); GLUCOSE, URINE NEGATIVE (NEGATIVE); KETONES,URINE NEGATIVE (NEGATIVE); LEUKOCYTE ESTERASE ,URINE NEGATIVE (NEGATIVE); NITRITES,URINE NEGATIVE (NEGATIVE); PROTEIN,URINE 2+ (NEGATIVE); UROBILINOGEN,URINE NORMAL (NORMAL)
[2018-10-25] MEDS ORDERED: K-LYTE EFFERVESCENT ONE (17:14)
[2018-10-25 17:19] LABS: CKMB % 0.5 % (<4); CREATINE KINASE MB 3.3 ng/mL (0-4.0); TROPONIN I 1.05 ng/mL (0-1.5)
[2018-10-25 17:21] LABS: APPEARANCE,URINE CLEAR (CLEAR); COLOR,URINE YELLOW (YELLOW)
[2018-10-25 17:22] LABS: BACTERIA,URINE NEGATIVE /HPF (NEGATIVE); HYALINE CASTS, URINE FEW /LPF (NEGATIVE); MUCUS,URINE MODERATE /HPF (NEGATIVE); RBC,URINE 0-2 /HPF (NONE SEEN); SQUAMOUS EPITHELIAL CELL,UR NEGATIVE /HPF (NEGATIVE)
--- NOTE | 2018-10-25 17:59 | RAD ---
Exam: Portable chest History: 27-year-old male with near syncope. Comparison: Previous chest radiograph from 02/17/2018. Findings: Generalized cardiomegaly is noted. However no significant vascular congestion is seen. Lungs are clear with no infiltrate or significant effusion on either side. Bony thorax is unremarkable as well. Impression: Generalized cardiomegaly. However no acute superimposed abnormality is seen on this exam Reported By:
[2018-10-25] MEDS ORDERED: ZANAFLEX PO PRN (18:53)
[2018-10-25] MEDS: NS 1000 ML 1,000 ML IV SCH (20:48)
[2018-10-25 22:51] LABS: CKMB % 0.5 % (<4); CREATINE KINASE MB 2.7 ng/mL (0-4.0)
[2018-10-25 22:54] VITALS: BMI 46.6
[2018-10-26] MEDS: NORMODYNE INJ 20 MG VIAL IV PRN ×3 (01:52→12:14)
[2018-10-26] MEDS: NS 1000 ML 1,000 ML IV SCH ×2 (03:51→12:15)
[2018-10-26 06:21] LABS: ALANINE AMINOTRANSFERASE 47 Units/L (12-78); ALBUMIN 3.2 g/dL (3.4-5.0); ALKALINE PHOSPHATASE 50 Units/L (46-116); ASPARTATE AMINO TRANSFERASE 35 Units/L (15-37); BLOOD UREA NITROGEN 18 mg/dL (7-18); CARBON DIOXIDE 28.6 mmol/L (21-32); CHLORIDE 103 mmol/L (98-107); COR CA(FOR HYPOALB) 8.6 mg/dL (8.5-10.1); CREATININE 1.09 mg/dL (0.70-1.30); MAGNESIUM 1.9 mg/dL (1.7-2.9); SODIUM 141 mmol/L (136-145); TOTAL PROTEIN 7.2 g/dL (6.4-8.2); eGFR NON BLACK RACES > 60 (>60)
[2018-10-26 06:24] LABS: BASOPHILS % (AUTO) 0.6 % (0.2-1.0); EOSINOPHILS # (AUTO) 0.1 x10^3/uL (0.0-0.2); EOSINOPHILS % (AUTO) 1.6 % (0.9-2.9); HEMATOCRIT 34.3 % (42.0-54.0); LYMPHOCYTES % (AUTO) 25.7 % (21.0-51.0); MEAN CORPUSCULAR HGB CONC 32.1 g/dL (33.0-35.0); MEAN CORPUSCULAR VOLUME 74.8 fL (80.0-100.0); MEAN PLATELET VOLUME 7.4 fL (7.4-11.0); MONOCYTES # (AUTO) 0.8 x10^3/uL (0.3-0.8); MONOCYTES % (AUTO) 9.8 % (0.0-13.0); NEUTROPHILS # (AUTO) 4.8 x10^3/uL (2.2-4.8); NEUTROPHILS % (AUTO) 62.3 % (42.0-75.0); PLATELET COUNT 298 X10^3/uL (150.0-450.0); RED BLOOD COUNT 4.58 X10^6/uL (4.7-6.0); RED CELL DISTRIBUTION WIDTH 15.9 % (11.6-16.5); WHITE BLOOD COUNT 7.7 X10^3/uL (3.6-10.0)
[2018-10-26 06:52] LABS: CKMB % 0.6 % (<4); CREATINE KINASE MB 2.5 ng/mL (0-4.0); TROPONIN I 0.96 ng/mL (0-1.5)
[2018-10-26 07:06] LABS: PLATELET MORPHOLOGY COMMENT NORMAL (NORMAL)
[2018-10-26] MEDS ORDERED: CHLORTHALIDONE PO SCH (09:00)
[2018-10-26] MEDS ORDERED: NORVASC TAB 10 MG PO SCH (09:00)
[2018-10-26] MEDS ORDERED: ZESTRIL TAB 40 MG PO SCH (09:00)
[2018-10-26] MEDS ORDERED: TOPROL XL ONE (09:59)
[2018-10-26] MEDS ORDERED: TOPROL XL PO SCH (10:00)
[2018-10-26] MEDS ORDERED: TOPROL XL PO ONE (14:07)
[2018-10-26 14:53] VITALS: BP 142/92
[2018-10-26] MEDS ORDERED: K-LYTE EFFERVESCENT PO ONE (17:13)
== END 2018-10-26 15:05 | disposition home or self-care (01) ==
LOC: ICU 15:51 → ER 15:51 → ICU 19:43
PROVIDERS: ADMIT Obstetrics & Gynecology Obstetrics; ATTEND Obstetrics & Gynecology Obstetrics
DX: F12.10 Cannabis abuse, uncomplicated; D64.89 Other specified anemias; T67.0XXA Heatstroke and sunstroke, initial encounter; Y92.89 Other specified places as the place of occurrence of the external cause; R51 Headache; E87.6 Hypokalemia; Z79.899 Other long term (current) drug therapy; X30.XXXA Exposure to excessive natural heat, initial encounter; R94.31 Abnormal electrocardiogram [ECG] [EKG]; R55 Syncope and collapse; I16.0 Hypertensive urgency
CPT/HCPCS: 36415; 71010; 71045; 80053; 80307; 81001; 82550; 82553; 82607; 82728; 82746; 83020; 83021; 83540; 83735; 84466; 84484; 85025; 93005; 96365; 99284; A4222; G0378; G0434; J3490; J7030; J8499

== ENCOUNTER 2019-03-14 12:15 | Observation (INO) ==
[2019-03-14 12:32] VITALS: BMI 47.9
[2019-03-14] MEDS ORDERED: CATAPRES TAB 0.2 MG PO ONE (13:03)
--- NOTE | 2019-03-14 13:03 | DR.HTN ---
HPI Time Seen Time Seen by Provider: 03/14/19 12:50 Primary Care Physician Primary Care Physician: ERIKA HPI Comment HPI Comment: PATIENT IS 28YR OLD MALE IN THE EMERGENCY ROOM WITH INCREASING SOB, CHEST PAIN, TIGHTNESS AND ELEVATED BLOOD PRESSURE AND ELEVATED HEART RATE. NO FEVER. PATIENT IS WEAK AND TIRED BUT NO NAUSEA, VOMITING OR DIARRHEA. HAVING ACHING, INTERMITTENT 8/10 IN ABDOMEN. HISTORY HYPERTENSION BUT HAVE NOT TAKEN HIS MEDICATION FOR SEVERAL MONTHS. DENIES DYSURIA. PATIENT SAID HE HAVE BEING SWEATING ON AND OFF ALSO. Complaints Chief Complaint Doctors Comments: SOB, ELEVATED BLOOD PRESSURE Chief Complaint:: OUT OF MEDS SINCE AND NOT TAKING ANY BP MEDS. STOMACH HAS BEEN ACHING FOR A WHILE, FEELING WEAK. KEEPS SWEATING. NO FLU SYM PTOMS. Reviewed Nurses Notes Reviewed: Yes Source History Provided: Patient Mode of Arrival Mode of Arrival: Ambulatory Timing Onset of Chief Complaint: 03/13/19 Severity What was the maximum recorded B/P?: 178/121 Severity: Moderate Context Circumstances: Ran out of Medication History of: Hypertension Treatment of HTN Prior to Arrival: No Rx for HTN meds and Noncompliant Associated Signs and Symptoms HTN Associated Signs and Symptoms: Weakness and Shortness of Breath Other History Other History: history hypertension. PMH PMH Past Medical History: Yes Past Medical History: Hypertension Past Surgical History: No Surgical History: No History Family History History of Family Medical Conditions: Yes Family Medical History: Diabetes Mellitus and Hypertension Social History Type of Tobacco Use: Cigarettes Alcohol Use: Occasionally Do you use any recreational Drugs:: Yes Lives With: Alone Lives Where: Home infectious screening In the last 2 months have you had wt loss of >10#?: NO Have you had fever, night sweats or hemotysis?: No Have you traveled outside the country in the last 6 months?: No Isolation: Standard ROS Review of Systems Constitutional: No Symptoms Reported, See HPI and Diaphoresis; negative Fever, Weakness and Fatigue Eyes: No Symptoms Reported and See HPI; negative Eye Pain, Blurred Vision, Photophobia and Diplopia ENTM: No Symptoms Reported and See HPI; negative Ear Pain, Nose Discharge, Nose Congestion and Throat Pain Respiratoy: No Symptoms Reported, See HPI, Short of Breath and Wheezing; negative Productive Cough Cardiovascular: No Symptoms Reported, See HPI, Chest Pain and Palpitations; negative Edema Gastrointestinal/Abdominal: No Symptoms Reported, See HPI and Abdominal Pain; negative Constipation, Diarrhea, Nausea and Vomiting Genitourinary: No Symptoms Reported and See HPI; negative Dysuria, Frequency, Hematuria and Pain Neurological: No Symptoms Reported, See HPI, Headache and Dizziness; negative Weakness Musculoskeletal: No Symptoms Reported and See HPI; negative Back Pain Integumentary: No Symptoms Reported and See HPI; negative Change in Color, Rash and Juandice Hematologic/Lymphatic: No Symptoms Reported and See HPI; negative Easy Bruising and Swollen Glands Endocrine: No Symptoms Reported and See HPI; negative Increased Thirst, Increased Urine and Decreased Appetite Psychiatric: No Symptoms Reported and See HPI All Other Systems: Reviewed and Negative PE Vital Signs Vitals: Temperature 97.8 F Pulse Rate [Apical] 113 Pulse Rate 96 Respiratory Rate 36 Blood Pressure [Left Arm] 180/116 Blood Pressure 137/98 O2 Sat by Pulse Oximetry 100 General Limitations: No Limitations General Appearance: Alert and In Distress Head Head Exam: Normal Inspection, Atraumatic and Normocephalic Eyes Eye exam: Normal Appearance, PERRL and EOMI; negative Scleral Icterus and Conjunctival Injection ENT ENT Exam: Normal Exam, Normal Oropharynx, Normal External Ear Exam and TM's Normal Bilaterally Neck Neck Exam: Normal Inspection and Trachea Midline; negative Tenderness and Lymphadenopathy Chest Chest Inspection: Normal Inspection and Symmetric Chest Wall Rise; negative Tenderness Respiratory Respiratory Exam: Prolonged Expiratory Phase and Respiratory Distress; negative Accessory Muscle Use and Chest Wall Tenderness Respiratory Exam: Bilateral: Wheezing and Bilateral: Rhonchi and Lower: Wheezing and Lower: Rhonchi Cardiovascular Cardiovascular Exam: Tachycardia; negative Systolic Murmur and Diastolic Murmur Abdominal Exam Abdominal Exam: Normal Inspection, Normal Bowel Sounds and Soft; negative Tenderness, Organomegaly and Mass Extremities Extremities Exam: Edema (TRACE EDEMA.) Back Back Exam: negative Tenderness, (R) CVA Tenderness, (L) CVA Tenderness, Paraspinal Tenderness and Vertebral Tenderness Neurologic Neurological Exam: Alert, Oriented X3 and CN II-XII Intact; negative Motor Sensory Deficit Patient Oriented To: Person, Place and Time Speech: Fluid Speech Cranial Nerve Exam: EOM Function (II, III, IV, ): Normal, Facial Sensation (V): Normal, Facial Palsy (VII): Normal, Gag reflex (XI): Normal, Spinal Accessory Function (XI): Normal and Tongue Deviation: Normal Motor Strength - LUE: 5/5 Motor Strength - RUE: 5/5 Upper Motor Neuron Exam: Babinski Sign: Normal Psychiatric Psychiatric Exam: Normal Affect and Normal Mood Skin Skin Exam: Warm, Dry, Intact and Normal Color; negative Rash MDM Differential Diagnosis Differential Diagnosis: CHF, Hypertensive emergency, Medical noncompliance and Pulmonary edema Differential Diagnosis Comment: MO, PNEUMONIA, COURSE Treatment Treatment: SEE ORDERS. CLONIDINE 0.5MG PO, BP DECREASING BUT BP STILL HIGH. STILL HAVING TACHYCARDIA. METOPROLOL 50MG , BP DOWN TO NORMAL RANGE. HEART RATE INPROVE. PATIENT DID NOT WISH TO BE TRANSFER TO A FACILITY WITH CARDIOLOGY SERVICE. HE WISH TO STAY AT THIS HOSPITAL. Reevaluation 2nd: Improved 3rd: Improved Consultation Consultation Comments: DISCUSSED PATIENT WITH DR. SANCHES. HE WILL ADMIT PATIENT. Education/Counseling Education/Counseling: Patient Educated On: Treatment and Diagnosis ROR Labs Reviewed Laboratory Results Reviewed?: Yes Result Diagrams: 03/14/19 13:13 03/14/19 13:13 Laboratory: WBC 9.1 X10^3/uL (3.6-10.0) 03/14/19 13:13 RBC 4.88 X10^6/uL (4.7-6.0) 03/14/19 13:13 Hgb 11.5 g/dL (13.5-18.0) L 03/14/19 13:13 Hct 35.3 % (42.0-54.0) L 03/14/19 13:13 MCV 72.2 fL (80.0-100.0) L 03/14/19 13:13 MCH 23.5 pg (27.0-34.0) L 03/14/19 13:13 MCHC 32.5 g/dL (33.0-35.0) L 03/14/19 13:13 RDW 15.9 % (11.6-16.5) 03/14/19 13:13 Plt Count 415 X10^3/uL (150.0-450.0) 03/14/19 13:13 Plt Count Comment Adequate (ADEQUATE) 03/14/19 13:13 MPV 6.9 fL (7.4-11.0) L 03/14/19 13:13 Neut % (Auto) 69.9 % (42.0-75.0) 03/14/19 13:13 Lymph % (Auto) 20.8 % (21.0-51.0) L 03/14/19 13:13 [place]cle[place] % (Auto) 7.7 % (0.0-13.0) 03/14/19 13:13 Eos % (Auto) 0.5 % (0.9-2.9) L 03/14/19 13:13 Baso % (Auto) 1.1 % (0.2-1.0) H 03/14/19 13:13 Neut # (Auto) 6.4 x10^3/uL (2.2-4.8) H 03/14/19 13:13 Lymph # (Auto) 1.9 X10^3/uL (1.3-2.9) 03/14/19 13:13 [place]cleod # (Auto) 0.7 x10^3/uL (0.3-0.8) 03/14/19 13:13 Eos # (Auto) 0.0 x10^3/uL (0.0-0.2) 03/14/19 13:13 Baso # (Auto) 0.1 X10^3/uL (0.0-0.1) 03/14/19 13:13 Absolute Nucleated RBC 0.1 /100WBC 03/14/19 13:13 Plt Morphology Comment Normal (NORMAL) 03/14/19 13:13 RBC Morphology Abnormal (NORMAL) 03/14/19 13:13 Hypochromasia 1+ A 03/14/19 13:13 Microcytosis Slight A 03/14/19 13:13 Sodium 138 mmol/L (136-145) 03/14/19 13:13 Corrected Sodium 139 mmol/L (136-145) 03/14/19 13:13 Potassium 3.4 mmol/L (3.5-5.1) L 03/14/19 13:13 Chloride 100 mmol/L (98-107) 03/14/19 13:13 Carbon Dioxide 29.3 mmol/L (21-32) 03/14/19 13:13 BUN 16 mg/dL (7-18) 03/14/19 13:13 Creatinine 1.05 mg/dL (0.70-1.30) 03/14/19 13:13 Est GFR (MDRD) Af Amer > 60 (>60) 03/14/19 13:13 Est GFR (MDRD) Non-Af > 60 (>60) 03/14/19 13:13 Glucose 125 mg/dL (65-99) H 03/14/19 13:13 POC Glucose (mg/dL) 132 mg/dL (65-99) H 03/14/19 17:41 Calcium 8.0 mg/dL (8.5-10.1) L 03/14/19 13:13 Corrected Calcium 8.6 mg/dL (8.5-10.1) 03/14/19 13:13 Total Bilirubin 0.90 mg/dL (0.2-1.0) 03/14/19 13:13 AST 31 Units/L (15-37) 03/14/19 13:13 ALT 49 Units/L (12-78) 03/14/19 13:13 Alkaline Phosphatase 60 Units/L (46-116) 03/14/19 13:13 Creatine Kinase 445 Units/L (39-308) H 03/14/19 18:45 CK-MB (CK-2) 2.2 ng/mL (0-4.0) 03/14/19 18:45 CK/CKMB % Calc 0.5 % (<4) 03/14/19 18:45 Troponin I 1.11 ng/mL (0-1.5) 03/14/19 18:45 Total Protein 7.6 g/dL (6.4-8.2) 03/14/19 13:13 Albumin 3.3 g/dL (3.4-5.0) L 03/14/19 13:13 Globulin 4.3 g/dL (2.5-4.5) 03/14/19 13:13 Albumin/Globulin Ratio 0.8 Ratio (1.1-2.1) L 03/14/19 13:13 XRAY XRAY Interpreted by: Radiologist and Self XRAY Findings: REPORT NOTED AND DISCUSSED WITH PATIENT. EKG Rate: 115 [place]: Normal Rhythm: ST Block: LBBB Hypertrophy: LAE ST: Nonsp Opioid Opioid Risk Tool Age ([place] box if 16-45): Yes History of Preadolescent Sexual Abuse: No Total: 1 Total Score Risk Category: Low Risk Copyright: [facility] predicting aberrant behaviors Diagnosis Discharge Problem: Chest pain, rule out acute myocardial infarction, Abnormal cardiac enzyme level CHF (congestive heart failure) Qualifiers: Heart failure type: combined systolic and diastolic Heart failure chronicity: acute on chronic Qualified Code(s): I50.43 - Acute on chronic combined systolic (congestive) and diastolic (congestive) heart failure Instructions Forms: Excuse From Work Patient Portal
[2019-03-14] MEDS ORDERED: CATAPRES TAB 0.2 MG ONE (13:07)
[2019-03-14 13:27] LABS: BASOPHILS # (AUTO) 0.1 X10^3/uL (0.0-0.1); BASOPHILS % (AUTO) 1.1 % (0.2-1.0); EOSINOPHILS % (AUTO) 0.5 % (0.9-2.9); HEMATOCRIT 35.3 % (42.0-54.0); HEMOGLOBIN 11.5 g/dL (13.5-18.0); LYMPHOCYTES # (AUTO) 1.9 X10^3/uL (1.3-2.9); LYMPHOCYTES % (AUTO) 20.8 % (21.0-51.0); MEAN CORPUSCULAR HEMOGLOBIN 23.5 pg (27.0-34.0); MEAN CORPUSCULAR HGB CONC 32.5 g/dL (33.0-35.0); MEAN CORPUSCULAR VOLUME 72.2 fL (80.0-100.0); MEAN PLATELET VOLUME 6.9 fL (7.4-11.0); MONOCYTES # (AUTO) 0.7 x10^3/uL (0.3-0.8); MONOCYTES % (AUTO) 7.7 % (0.0-13.0); NEUTROPHILS # (AUTO) 6.4 x10^3/uL (2.2-4.8); NEUTROPHILS % (AUTO) 69.9 % (42.0-75.0); PLATELET COUNT 415 X10^3/uL (150.0-450.0); RED BLOOD COUNT 4.88 X10^6/uL (4.7-6.0); RED CELL DISTRIBUTION WIDTH 15.9 % (11.6-16.5); WHITE BLOOD COUNT 9.1 X10^3/uL (3.6-10.0)
--- NOTE | 2019-03-14 13:32 | RAD ---
HISTORY: Shortness of breath Study: Single-view chest Comparison: 01/17/2019. Findings: Trachea is midline. There is globular cardiomegaly with pulmonary vascular congestion. There is a right infrahilar focus of atelectasis, edema or infiltrate. No evidence of CHF is seen. There is no evidence of pleural fluid or pneumothorax. IMPRESSION: Globular cardiomegaly with pulmonary vascular congestion. Right infrahilar focus of atelectasis, edema or infiltrate. Reported By:
[2019-03-14 13:50] LABS: HYPOCHROMASIA 1+; PLATELET MORPHOLOGY COMMENT NORMAL (NORMAL)
[2019-03-14 13:51] LABS: MICROCYTOSIS SLIGHT
[2019-03-14 13:52] LABS: BLOOD UREA NITROGEN 16 mg/dL (7-18); CARBON DIOXIDE 29.3 mmol/L (21-32); CHLORIDE 100 mmol/L (98-107); COR NA(FOR HYPERGLY) 139 mmol/L (136-145); CREATININE 1.05 mg/dL (0.70-1.30); SODIUM 138 mmol/L (136-145); TROPONIN I 1.17 ng/mL (0-1.5); eGFR NON BLACK RACES > 60 (>60)
[2019-03-14 13:53] LABS: ALANINE AMINOTRANSFERASE 49 Units/L (12-78); ALBUMIN 3.3 g/dL (3.4-5.0); ALKALINE PHOSPHATASE 60 Units/L (46-116); ASPARTATE AMINO TRANSFERASE 31 Units/L (15-37); CKMB % 0.5 % (<4); COR CA(FOR HYPOALB) 8.6 mg/dL (8.5-10.1); CREATINE KINASE 488 Units/L (39-308); CREATINE KINASE MB 2.6 ng/mL (0-4.0); TOTAL PROTEIN 7.6 g/dL (6.4-8.2)
[2019-03-14] MEDS ORDERED: LOPRESSOR TAB 50 MG PO ONE (14:55)
[2019-03-14] MEDS ORDERED: LOPRESSOR TAB 50 MG ONE (15:01)
[2019-03-14] MEDS: ASPIRIN 81 MG CHEWTAB PO SCH (15:09)
[2019-03-14 16:15] LABS: CKMB % 0.6 % (<4); CREATINE KINASE MB 2.7 ng/mL (0-4.0); TROPONIN I 1.17 ng/mL (0-1.5)
[2019-03-14] MEDS ORDERED: K-LYTE EFFERVESCENT PO ONE (16:48)
[2019-03-14] MEDS ORDERED: K-LYTE EFFERVESCENT ONE (17:21)
[2019-03-14 19:17] LABS: CKMB % 0.5 % (<4); CREATINE KINASE MB 2.2 ng/mL (0-4.0); TROPONIN I 1.11 ng/mL (0-1.5)
[2019-03-14] MEDS ORDERED: LASIX IVP SCH (21:10)
[2019-03-14] MEDS: LOPRESSOR TAB 50 MG PO SCH (21:29)
[2019-03-14 22:19] LABS: BILIRUBIN,URINE NEGATIVE (NEGATIVE); BLOOD/HEMOGLOBIN,URINE 1+ (NEGATIVE); GLUCOSE, URINE NEGATIVE (NEGATIVE); KETONES,URINE NEGATIVE (NEGATIVE); LEUKOCYTE ESTERASE ,URINE NEGATIVE (NEGATIVE); NITRITES,URINE NEGATIVE (NEGATIVE); PROTEIN,URINE 3+ (NEGATIVE); UROBILINOGEN,URINE 3+ (NORMAL)
[2019-03-14 22:24] LABS: APPEARANCE,URINE CLEAR (CLEAR); COLOR,URINE YELLOW (YELLOW)
[2019-03-14 22:33] LABS: RBC,URINE 0-2 /HPF (0-3); SQUAMOUS EPITHELIAL CELL,UR NEGATIVE /HPF (NEGATIVE)
[2019-03-14 22:34] LABS: BACTERIA,URINE NEGATIVE /HPF (NEGATIVE); HYALINE CASTS, URINE FEW /LPF (NEGATIVE)
[2019-03-15 02:19] LABS: CKMB % 0.4 % (<4); CREATINE KINASE MB 1.9 ng/mL (0-4.0); TROPONIN I 1.1 ng/mL (0-1.5)
[2019-03-15 04:57] LABS: BASOPHILS # (AUTO) 0.1 X10^3/uL (0.0-0.1); BASOPHILS % (AUTO) 1.3 % (0.2-1.0); EOSINOPHILS % (AUTO) 0.3 % (0.9-2.9); HEMATOCRIT 34.4 % (42.0-54.0); LYMPHOCYTES # (AUTO) 2.3 X10^3/uL (1.3-2.9); LYMPHOCYTES % (AUTO) 20.6 % (21.0-51.0); MEAN CORPUSCULAR HEMOGLOBIN 23.3 pg (27.0-34.0); MEAN PLATELET VOLUME 7.1 fL (7.4-11.0); MONOCYTES # (AUTO) 0.9 x10^3/uL (0.3-0.8); MONOCYTES % (AUTO) 7.8 % (0.0-13.0); NEUTROPHILS # (AUTO) 7.8 x10^3/uL (2.2-4.8); PLATELET COUNT 412 X10^3/uL (150.0-450.0); RED BLOOD COUNT 4.71 X10^6/uL (4.7-6.0); RED CELL DISTRIBUTION WIDTH 15.8 % (11.6-16.5); WHITE BLOOD COUNT 11.1 X10^3/uL (3.6-10.0)
[2019-03-15 05:10] LABS: ALANINE AMINOTRANSFERASE 129 Units/L (12-78); ALBUMIN 3.2 g/dL (3.4-5.0); ALKALINE PHOSPHATASE 61 Units/L (46-116); ASPARTATE AMINO TRANSFERASE 125 Units/L (15-37); BLOOD UREA NITROGEN 23 mg/dL (7-18); CALCIUM 8.1 mg/dL (8.5-10.1); CARBON DIOXIDE 29.3 mmol/L (21-32); CHLORIDE 99 mmol/L (98-107); CHOL/HDL RATIO 5.5 (0.0-5.0); CHOLESTEROL 177 mg/dL (0-200); COR CA(FOR HYPOALB) 8.7 mg/dL (8.5-10.1); CREATININE 1.42 mg/dL (0.70-1.30); HDL CHOLESTEROL 32 mg/dL (40-60); MAGNESIUM 1.8 mg/dL (1.7-2.9); SODIUM 137 mmol/L (136-145); TOTAL PROTEIN 7.4 g/dL (6.4-8.2); TRIGLYCERIDES 66 mg/dL (0-150); eGFR NON BLACK RACES > 60 (>60)
[2019-03-15 05:11] LABS: ANISOCYTOSIS SLIGHT; HYPOCHROMASIA 1+; MICROCYTOSIS SLIGHT; PLATELET MORPHOLOGY COMMENT NORMAL (NORMAL)
--- NOTE | 2019-03-15 08:18 | DR.H&P ---
H&P History & Physical for Day of: H&P Date: 03/15/19 Chief Complaint Chief Complaint: SOB Allergies Allergies Allergy/AdvReac Type Severity Reaction Status Date / Time orange Allergy Verified 03/14/19 12:24 History of Present Illness History of Present Illness: Mr. Cruz is a 28y/o male with a PMH of uncontrolled HTN, HLD, morbid obesity and medical non-compliance preseted with SOB. He states he was resting at home when he felt like he was not able to breath. He denies chest pain or pressure. He has not taken his anti-hypertensives since Dec when he lost his insurance. He is currently unemployed. He does not check his BP regularly. He has had similar visits to the ED before. He has not been seen by cardiology, no work-up such as stress test or echo. He reports being sick with cough and congestion last week which resolved with OTC meds. He denies fever or chills. He states improvement in breathing this AM. He reports having trouble breathing at night, snoring and feeling tired in the AM. He was supposed to have a sleep study done but was not done. Denies IV drug use. ED work-up: -BP: 180/116 - received clonidine and metoprolol -CXR: cardiomegaly, pulmonary vascular congestion, received IV Lasix -Labs: trop: 1.17 1.17 1.11. In the ED, patient was asked if he would like to be transferred for cardiology eval but patient refused transfer. Past Medical History Past Medical History: Anemia, Dyslipidemia and Hypertension Past Surgical History Surgical History: No History Family History Family Medical History: Diabetes Mellitus, IA, Coronary Artery Disease and Hypertension Social History Does patient currently use any type of tobacco product: Yes Have you used tobacco products in the last 12 months: Yes Type of Tobacco Use: Cigarettes Does any household member use tobacco: No Alcohol Use: Occasionally Drug Use: Marijuana Prescription drug monitoring program results: PDMP was not reviewed Medications Home Medications: orange Allergy (Verified 03/14/19 12:24) CONTINUE taking the following medications NK 03/14/19 [History] Labs Result Diagrams: 03/15/19 04:40 03/15/19 04:40 Labs: Laboratory WBC 11.1 X10^3/uL (3.6-10.0) H 03/15/19 04:40 RBC 4.71 X10^6/uL (4.7-6.0) 03/15/19 04:40 Hgb 11.0 g/dL (13.5-18.0) L 03/15/19 04:40 Hct 34.4 % (42.0-54.0) L 03/15/19 04:40 MCV 73.0 fL (80.0-100.0) L 03/15/19 04:40 MCH 23.3 pg (27.0-34.0) L 03/15/19 04:40 MCHC 32.0 g/dL (33.0-35.0) L 03/15/19 04:40 RDW 15.8 % (11.6-16.5) 03/15/19 04:40 Plt Count 412 X10^3/uL (150.0-450.0) 03/15/19 04:40 Plt Count Comment Adequate (ADEQUATE) 03/15/19 04:40 MPV 7.1 fL (7.4-11.0) L 03/15/19 04:40 Neut % (Auto) 70.0 % (42.0-75.0) 03/15/19 04:40 Lymph % (Auto) 20.6 % (21.0-51.0) L 03/15/19 04:40 [place] % (Auto) 7.8 % (0.0-13.0) 03/15/19 04:40 Eos % (Auto) 0.3 % (0.9-2.9) L 03/15/19 04:40 Baso % (Auto) 1.3 % (0.2-1.0) H 03/15/19 04:40 Neut # (Auto) 7.8 x10^3/uL (2.2-4.8) H 03/15/19 04:40 Lymph # (Auto) 2.3 X10^3/uL (1.3-2.9) 03/15/19 04:40 [place] # (Auto) 0.9 x10^3/uL (0.3-0.8) H 03/15/19 04:40 Eos # (Auto) 0.0 x10^3/uL (0.0-0.2) 03/15/19 04:40 Baso # (Auto) 0.1 X10^3/uL (0.0-0.1) 03/15/19 04:40 Absolute Nucleated RBC 0.2 /100WBC 03/15/19 04:40 Plt Morphology Comment Normal (NORMAL) 03/15/19 04:40 RBC Morphology Abnormal (NORMAL) 03/15/19 04:40 Hypochromasia 1+ A 03/15/19 04:40 Anisocytosis Slight A 03/15/19 04:40 Microcytosis Slight A 03/15/19 04:40 Sodium 137 mmol/L (136-145) 03/15/19 04:40 Corrected Sodium TNP 03/15/19 04:40 Potassium 4.0 mmol/L (3.5-5.1) 03/15/19 04:40 Chloride 99 mmol/L (98-107) 03/15/19 04:40 Carbon Dioxide 29.3 mmol/L (21-32) 03/15/19 04:40 BUN 23 mg/dL (7-18) H 03/15/19 04:40 Creatinine 1.42 mg/dL (0.70-1.30) H 03/15/19 04:40 Est GFR (MDRD) Af Amer > 60 (>60) 03/15/19 04:40 Est GFR (MDRD) Non-Af > 60 (>60) 03/15/19 04:40 Glucose 97 mg/dL (65-99) 03/15/19 04:40 POC Glucose (mg/dL) 132 mg/dL (65-99) H 03/14/19 17:41 Calcium 8.1 mg/dL (8.5-10.1) L 03/15/19 04:40 Corrected Calcium 8.7 mg/dL (8.5-10.1) 03/15/19 04:40 Magnesium 1.8 mg/dL (1.7-2.9) 03/15/19 04:40 Total Bilirubin 1.00 mg/dL (0.2-1.0) 03/15/19 04:40 AST 125 Units/L (15-37) H 03/15/19 04:40 ALT 129 Units/L (12-78) H 03/15/19 04:40 Alkaline Phosphatase 61 Units/L (46-116) 03/15/19 04:40 Creatine Kinase 439 Units/L (39-308) H 03/15/19 01:52 CK-MB (CK-2) 1.9 ng/mL (0-4.0) 03/15/19 01:52 CK/CKMB % Calc 0.4 % (<4) 03/15/19 01:52 Troponin I 1.10 ng/mL (0-1.5) 03/15/19 01:52 Total Protein 7.4 g/dL (6.4-8.2) 03/15/19 04:40 Albumin 3.2 g/dL (3.4-5.0) L 03/15/19 04:40 Globulin 4.2 g/dL (2.5-4.5) 03/15/19 04:40 Albumin/Globulin Ratio 0.8 Ratio (1.1-2.1) L 03/15/19 04:40 Triglycerides 66 mg/dL (0-150) 03/15/19 04:40 Cholesterol 177 mg/dL (0-200) 03/15/19 04:40 LDL Cholesterol, Calc 132 mg/dL (0-100) H 03/15/19 04:40 HDL Cholesterol 32 mg/dL (40-60) L 03/15/19 04:40 Cholesterol/HDL Ratio 5.5 (0.0-5.0) H 03/15/19 04:40 Specimen Type Clean catch urine 03/14/19 22:00 Urine Color Yellow (YELLOW) 03/14/19 22:00 Urine Appearance Clear (CLEAR) 03/14/19 22:00 Urine pH 5.0 (5.0 - 8.0) 03/14/19 22:00 Ur Specific [place] 1.025 (1.000-1.030) 03/14/19 22:00 Urine Protein 3+ (NEGATIVE) 03/14/19 22:00 Urine Glucose (UA) Negative (NEGATIVE) 03/14/19 22:00 Urine Ketones Negative (NEGATIVE) 03/14/19 22:00 Urine Occult Blood 1+ (NEGATIVE) 03/14/19 22:00 Urine Nitrite Negative (NEGATIVE) 03/14/19 22:00 Urine Bilirubin Negative (NEGATIVE) 03/14/19 22:00 Urine Urobilinogen 3+ (NORMAL) 03/14/19 22:00 Ur Leukocyte Esterase Negative (NEGATIVE) 03/14/19 22:00 Urine RBC 0-2 /HPF (0-3) 03/14/19 22:00 Urine WBC 3-5 /HPF (0-5) 03/14/19 22:00 Ur Squamous Epith Cells Negative /HPF (NEGATIVE) 03/14/19 22:00 Urine Bacteria Negative /HPF (NEGATIVE) 03/14/19 22:00 Hyaline Casts Few /LPF (NEGATIVE) 03/14/19 22:00 Ur Culture Indicated? No/not indicated 03/14/19 22:00 Review of Systems Constitutional: Sweats and Weakness; denies Fever, Chills and Malaise Eyes: No Symptoms Reported ENT: Nose Congestion Respiratory: Cough and Shortness of Breath; denies Hemoptysis, SOB with Excertion and Pleuritic Pain Cardiovascular: Edema; denies Chest Pain, Palpitations and Orthopnea Gastrointestinal: No Symptoms Reported Genitourinary: No Symptoms Reported Musculoskeletal: No Symptoms Reported Skin: No Symptoms Reported Neurological: No Symptoms Reported Physical Exam Vital Signs: Temperature 97.7 F Pulse Rate [Apical] 91 Pulse Rate 99 Respiratory Rate 25 Blood Pressure [Right Radial 143/94 Artery] Blood Pressure [Left Arm] 180/116 Blood Pressure 146/96 O2 Sat by Pulse Oximetry 100 Oriented: Normal Eyes: Normal Throat: Normal Respiratory: RLL Rales and LLL Rales Cardiovascular: Tachycardia and Edema Auscultation: Bowel Sounds: Normal Palpation: Normal Tenderness: Normal Skin: Normal Musculoskeletal: Normal Mood Description: Calm Affect: Normal Speech Pattern: Clear and Appropriate Assessment/Plan (1) Dilated cardiomyopathy: Status: Acute Plan: ECHO with EF 13%, dilated cardiomyopathy. Denies cocaine use Patient had initially refused transfer for further work-up but now has agreed if needed. Meds: asa, statin, acei, hydralazine, Imdur, Lasix IV , metoprolol Cardiology consult for tomorrow (2) Incomplete left bundle branch block (LBBB): Status: Acute Plan: seen in prev EKG, has not had any cardiac work-up (3) Dyspnea: Qualifiers: Dyspnea type: shortness of breath Qualified Code(s): R06.02 - Shortness of breath; R06.00 - Dyspnea, unspecified; R06.01 - Orthopnea Narrative Support Text: currently on 2L, likely due to HTN urgency and acute CHF exacerbation Status: Acute Plan: continue BP control IV Lasix 20 daily Oxygen prn (4) Chest pain, rule out acute myocardial infarction: Status: Acute Plan: Trop elevation 1.17 1.17 1.11, am pending No prior work-up, could be 2/2 to uncontrolled HTN and CHF (5) Hypertensive urgency: Status: Acute Plan: improved, continue anti-hypertensives (6) ARF (acute renal failure): Qualifiers: Acute renal failure type: unspecified Qualified Code(s): N17.9 - Acute kidney failure, unspecified Status: Acute Plan: Cr up this AM , 1.42 from 1.05 Could be 2/2 to Lasix, HTN urgency, cardio renal Will decrease Lasix to once a day (7) Hyperlipidemia: Qualifiers: Hyperlipidemia type: mixed hyperlipidemia Qualified Code(s): E78.2 - Mixed hyperlipidemia Status: Chronic Plan: add statin (8) Iron deficiency anemia: Qualifiers: Iron deficiency anemia type: unspecified iron deficiency Qualified Code(s): D50.9 - Iron deficiency anemia, unspecified Status: Acute Plan: hx of low iron in the past, anemia panel pending (9) Morbid obesity: Status: Acute (10) SASKIA (obstructive sleep apnea): Status: Acute Plan: needs outpatient sleep study Review H&P Reviewed: Yes Patient was examined?: Yes
[2019-03-15] MEDS ORDERED: ZESTRIL TAB 40 MG PO SCH (09:00)
[2019-03-15] MEDS ORDERED: NORVASC TAB 10 MG PO SCH ×2 (09:00→09:25)
[2019-03-15] MEDS ORDERED: ASPIRIN PO SCH (09:00)
[2019-03-15] MEDS ORDERED: LIPITOR TAB 40 MG PO SCH (09:00)
[2019-03-15] MEDS ORDERED: LASIX IVP SCH (09:00)
[2019-03-15 09:03] LABS: IRON 35 ug/dL (50-175)
[2019-03-15] MEDS ORDERED: LIPITOR TAB 40 MG ONE (09:47)
[2019-03-15] MEDS ORDERED: ZESTRIL TAB 40 MG ONE (09:48)
[2019-03-15] MEDS: ASPIRIN 81 MG CHEWTAB PO SCH (09:52)
[2019-03-15] MEDS: LOPRESSOR TAB 50 MG PO SCH (09:52)
[2019-03-15 13:35] VITALS: BP 148/102
[2019-03-15] MEDS ORDERED: APRESOLINE TAB 25 MG PO SCH (14:00)
--- NOTE | 2019-03-15 14:01 | W.DIS.FURT ---
Summary of Discharge Discharge Summary of Date Date of Exam: 03/15/19 Admission Date Date of Admission: 03/14/19 Admission Diagnosis Hospital Course: Mr. Cruz is a 28y/o male with a PMH of uncontrolled HTN, HLD, morbid obesity and tobacco use who presented to the ED with SOB. Patient reports sudden onset of SOB while he was resting. He has not been compliant with his BP medications since Dec. He states he ran out in Dec due to losing his insurance. He presented with BP 180/116, CXR consistent with pulmonary vascular congestion, abnormal troponins, EKG incomplete LBBB. He was admitted for CHF exacerbation and HTN urgency. Patient received clonidine and metoprolol in the ED which brought down his BP. He was also given IV lasix. Echo done today showed severe LVH with EF 13%. He denies use of IV drugs including cocaine. On admission, patient had refused transfer to another facility for cardiology eval but after discussing the echo results, patient agreed to be transferred to [facility] in [place] for a possible cath and further work-up. Patient's medications were optimized and he was hemodynamically stable for transfer. Vital Signs: Vital Signs (72 hours) 03/14/19 12:26 03/14/19 12:52 03/14/19 12:54 Temperature 97.8 F Pulse Rate 118 H 118 H Pulse Rate [Apical] 113 H Respiratory Rate 24 20 22 Blood Pressure 178/121 Blood Pressure [Left Arm] 180/116 Blood Pressure [Right Arm] Blood Pressure [Right Radial Artery] O2 Sat by Pulse Oximetry 99 95 95 03/14/19 12:55 03/14/19 13:00 03/14/19 13:15 Temperature Pulse Rate 116 H 112 H 109 H Pulse Rate [Apical] Respiratory Rate 28 H 32 H 29 H Blood Pressure 180/116 Blood Pressure [Left Arm] Blood Pressure [Right Arm] Blood Pressure [Right Radial Artery] O2 Sat by Pulse Oximetry 94 L 94 L 98 03/14/19 13:30 03/14/19 13:40 03/14/19 13:45 Temperature Pulse Rate 115 H 114 H 115 H Pulse Rate [Apical] Respiratory Rate 32 H 33 H 35 H Blood Pressure 177/106 Blood Pressure [Left Arm] Blood Pressure [Right Arm] Blood Pressure [Right Radial Artery] O2 Sat by Pulse Oximetry 97 97 96 03/14/19 14:00 03/14/19 14:15 03/14/19 14:20 Temperature Pulse Rate 113 H 110 H 112 H Pulse Rate [Apical] Respiratory Rate 27 H 35 H 35 H Blood Pressure 163/119 156/124 Blood Pressure [Left Arm] Blood Pressure [Right Arm] Blood Pressure [Right Radial Artery] O2 Sat by Pulse Oximetry 98 97 99 03/14/19 14:30 03/14/19 14:40 03/14/19 14:45 Temperature Pulse Rate 113 H 107 H 108 H Pulse Rate [Apical] Respiratory Rate 31 H 32 H 37 H Blood Pressure 174/112 Blood Pressure [Left Arm] Blood Pressure [Right Arm] Blood Pressure [Right Radial Artery] O2 Sat by Pulse Oximetry 98 97 98 03/14/19 15:00 03/14/19 15:01 03/14/19 15:15 Temperature Pulse Rate 104 H 104 H 106 H Pulse Rate [Apical] Respiratory Rate 31 H 32 H 32 H Blood Pressure 164/107 Blood Pressure [Left Arm] Blood Pressure [Right Arm] Blood Pressure [Right Radial Artery] O2 Sat by Pulse Oximetry 98 100 99 03/14/19 15:20 03/14/19 15:30 03/14/19 15:40 Temperature Pulse Rate 105 H 105 H 104 H Pulse Rate [Apical] Respiratory Rate 28 H 35 H 31 H Blood Pressure 142/99 137/97 Blood Pressure [Left Arm] Blood Pressure [Right Arm] Blood Pressure [Right Radial Artery] O2 Sat by Pulse Oximetry 99 100 100 03/14/19 15:45 03/14/19 16:00 03/14/19 16:15 Temperature Pulse Rate 106 H 99 H 96 H Pulse Rate [Apical] Respiratory Rate 25 H 27 H 35 H Blood Pressure 127/94 Blood Pressure [Left Arm] Blood Pressure [Right Arm] Blood Pressure [Right Radial Artery] O2 Sat by Pulse Oximetry 94 L 99 100 03/14/19 16:20 03/14/19 16:30 03/14/19 16:39 Temperature Pulse Rate 96 H 95 H 97 H Pulse Rate [Apical] Respiratory Rate 29 H 34 H 19 Blood Pressure 122/84 Blood Pressure [Left Arm] Blood Pressure [Right Arm] Blood Pressure [Right Radial Artery] O2 Sat by Pulse Oximetry 99 97 100 03/14/19 16:40 03/14/19 16:45 03/14/19 17:00 Temperature Pulse Rate 93 H 92 H 88 Pulse Rate [Apical] Respiratory Rate 29 H 27 H 26 H Blood Pressure 122/91 128/95 Blood Pressure [Left Arm] Blood Pressure [Right Arm] Blood Pressure [Right Radial Artery] O2 Sat by Pulse Oximetry 98 96 03/14/19 17:15 03/14/19 17:20 03/14/19 17:30 Temperature Pulse Rate 90 91 H 90 Pulse Rate [Apical] Respiratory Rate 30 H Blood Pressure 136/101 Blood Pressure [Left Arm] Blood Pressure [Right Arm] Blood Pressure [Right Radial Artery] O2 Sat by Pulse Oximetry 100 99 99 03/14/19 17:45 03/14/19 18:00 03/14/19 18:15 Temperature Pulse Rate 94 H 93 H 95 H Pulse Rate [Apical] Respiratory Rate 17 31 H 29 H Blood Pressure 132/93 125/85 Blood Pressure [Left Arm] Blood Pressure [Right Arm] Blood Pressure [Right Radial Artery] O2 Sat by Pulse Oximetry 99 98 99 03/14/19 18:20 03/14/19 18:30 03/14/19 18:40 Temperature Pulse Rate 96 H 95 H 93 H Pulse Rate [Apical] Respiratory Rate 35 H 37 H 26 H Blood Pressure 131/94 133/92 Blood Pressure [Left Arm] Blood Pressure [Right Arm] Blood Pressure [Right Radial Artery] O2 Sat by Pulse Oximetry 99 96 99 03/14/19 19:00 03/14/19 19:02 03/14/19 19:20 Temperature Pulse Rate 94 H 93 H 96 H Pulse Rate [Apical] Respiratory Rate 29 H 27 H 32 H Blood Pressure 126/88 131/93 Blood Pressure [Left Arm] Blood Pressure [Right Arm] Blood Pressure [Right Radial Artery] O2 Sat by Pulse Oximetry 98 97 100 03/14/19 19:40 03/14/19 20:00 03/14/19 20:20 Temperature Pulse Rate 98 H 96 H 99 H Pulse Rate [Apical] Respiratory Rate 28 H 36 H 34 H Blood Pressure 137/96 137/98 Blood Pressure [Left Arm] Blood Pressure [Right Arm] Blood Pressure [Right Radial Artery] O2 Sat by Pulse Oximetry 96 100 100 03/14/19 20:40 03/14/19 21:00 03/14/19 21:07 Temperature Pulse Rate 92 H 96 H 99 H Pulse Rate [Apical] Respiratory Rate 26 H 25 H 37 H Blood Pressure 142/90 146/96 Blood Pressure [Left Arm] Blood Pressure [Right Arm] Blood Pressure [Right Radial Artery] O2 Sat by Pulse Oximetry 100 100 100 03/14/19 22:00 03/14/19 23:00 03/15/19 00:00 Temperature 97.9 F 98.1 F 97.8 F Pulse Rate Pulse Rate [Apical] 97 H 98 H 96 H Respiratory Rate 37 H 36 H 24 Blood Pressure Blood Pressure [Left Arm] Blood Pressure [Right Arm] Blood Pressure [Right Radial Artery] 140/100 153/91 135/87 O2 Sat by Pulse Oximetry 100 100 100 03/15/19 04:00 03/15/19 08:00 03/15/19 12:00 Temperature 97.7 F 97.7 F 98.4 F Pulse Rate Pulse Rate [Apical] 91 H 90 92 H Respiratory Rate 25 H 22 23 Blood Pressure Blood Pressure [Left Arm] Blood Pressure [Right Arm] 158/105 148/102 Blood Pressure [Right Radial Artery] 143/94 O2 Sat by Pulse Oximetry 100 100 100 Labs: Laboratory Last Values WBC 11.1 X10^3/uL (3.6-10.0) H 03/15/19 04:40 RBC 4.71 X10^6/uL (4.7-6.0) 03/15/19 04:40 Hgb 11.0 g/dL (13.5-18.0) L 03/15/19 04:40 Hct 34.4 % (42.0-54.0) L 03/15/19 04:40 MCV 73.0 fL (80.0-100.0) L 03/15/19 04:40 MCH 23.3 pg (27.0-34.0) L 03/15/19 04:40 MCHC 32.0 g/dL (33.0-35.0) L 03/15/19 04:40 RDW 15.8 % (11.6-16.5) 03/15/19 04:40 Plt Count 412 X10^3/uL (150.0-450.0) 03/15/19 04:40 Plt Count Comment Adequate (ADEQUATE) 03/15/19 04:40 MPV 7.1 fL (7.4-11.0) L 03/15/19 04:40 Neut % (Auto) 70.0 % (42.0-75.0) 03/15/19 04:40 Lymph % (Auto) 20.6 % (21.0-51.0) L 03/15/19 04:40 [place] % (Auto) 7.8 % (0.0-13.0) 03/15/19 04:40 Eos % (Auto) 0.3 % (0.9-2.9) L 03/15/19 04:40 Baso % (Auto) 1.3 % (0.2-1.0) H 03/15/19 04:40 Neut # (Auto) 7.8 x10^3/uL (2.2-4.8) H 03/15/19 04:40 Lymph # (Auto) 2.3 X10^3/uL (1.3-2.9) 03/15/19 04:40 [place] # (Auto) 0.9 x10^3/uL (0.3-0.8) H 03/15/19 04:40 Eos # (Auto) 0.0 x10^3/uL (0.0-0.2) 03/15/19 04:40 Baso # (Auto) 0.1 X10^3/uL (0.0-0.1) 03/15/19 04:40 Absolute Nucleated RBC 0.2 /100WBC 03/15/19 04:40 Plt Morphology Comment Normal (NORMAL) 03/15/19 04:40 RBC Morphology Abnormal (NORMAL) 03/15/19 04:40 Hypochromasia 1+ A 03/15/19 04:40 Anisocytosis Slight A 03/15/19 04:40 Microcytosis Slight A 03/15/19 04:40 Sodium 137 mmol/L (136-145) 03/15/19 04:40 Corrected Sodium TNP 03/15/19 04:40 Potassium 4.0 mmol/L (3.5-5.1) 03/15/19 04:40 Chloride 99 mmol/L (98-107) 03/15/19 04:40 Carbon Dioxide 29.3 mmol/L (21-32) 03/15/19 04:40 BUN 23 mg/dL (7-18) H 03/15/19 04:40 Creatinine 1.42 mg/dL (0.70-1.30) H 03/15/19 04:40 Est GFR (MDRD) Af Amer > 60 (>60) 03/15/19 04:40 Est GFR (MDRD) Non-Af > 60 (>60) 03/15/19 04:40 Glucose 97 mg/dL (65-99) 03/15/19 04:40 POC Glucose (mg/dL) 132 mg/dL (65-99) H 03/14/19 17:41 Calcium 8.1 mg/dL (8.5-10.1) L 03/15/19 04:40 Corrected Calcium 8.7 mg/dL (8.5-10.1) 03/15/19 04:40 Magnesium 1.8 mg/dL (1.7-2.9) 03/15/19 04:40 Iron 35 ug/dL (50-175) L 03/15/19 04:40 Transferrin 322 mg/dL (202-364) 03/15/19 04:40 Ferritin 99 ng/mL (26-388) 03/15/19 04:40 Total Bilirubin 1.00 mg/dL (0.2-1.0) 03/15/19 04:40 AST 125 Units/L (15-37) H 03/15/19 04:40 ALT 129 Units/L (12-78) H 03/15/19 04:40 Alkaline Phosphatase 61 Units/L (46-116) 03/15/19 04:40 Creatine Kinase Cancelled 03/15/19 08:05 CK-MB (CK-2) Cancelled 03/15/19 08:05 CK/CKMB % Calc Cancelled 03/15/19 08:05 Troponin I 1.13 ng/mL (0-1.5) 03/15/19 08:05 Troponin I Cancelled 03/15/19 08:05 Total Protein 7.4 g/dL (6.4-8.2) 03/15/19 04:40 Albumin 3.2 g/dL (3.4-5.0) L 03/15/19 04:40 Globulin 4.2 g/dL (2.5-4.5) 03/15/19 04:40 Albumin/Globulin Ratio 0.8 Ratio (1.1-2.1) L 03/15/19 04:40 Triglycerides 66 mg/dL (0-150) 03/15/19 04:40 Cholesterol 177 mg/dL (0-200) 03/15/19 04:40 LDL Cholesterol, Calc 132 mg/dL (0-100) H 03/15/19 04:40 HDL Cholesterol 32 mg/dL (40-60) L 03/15/19 04:40 Cholesterol/HDL Ratio 5.5 (0.0-5.0) H 03/15/19 04:40 Vitamin B12 561 pg/mL (193-986) 03/15/19 04:40 Folate > 20.0 ng/mL (>8.6) 03/15/19 04:40 Specimen Type Clean catch urine 03/14/19 22:00 Urine Color Yellow (YELLOW) 03/14/19 22:00 Urine Appearance Clear (CLEAR) 03/14/19 22:00 Urine pH 5.0 (5.0 - 8.0) 03/14/19 22:00 Ur Specific [place] 1.025 (1.000-1.030) 03/14/19 22:00 Urine Protein 3+ (NEGATIVE) 03/14/19 22:00 Urine Glucose (UA) Negative (NEGATIVE) 03/14/19 22:00 Urine Ketones Negative (NEGATIVE) 03/14/19 22:00 Urine Occult Blood 1+ (NEGATIVE) 03/14/19 22:00 Urine Nitrite Negative (NEGATIVE) 03/14/19 22:00 Urine Bilirubin Negative (NEGATIVE) 03/14/19 22:00 Urine Urobilinogen 3+ (NORMAL) 03/14/19 22:00 Ur Leukocyte Esterase Negative (NEGATIVE) 03/14/19 22:00 Urine RBC 0-2 /HPF (0-3) 03/14/19 22:00 Urine WBC 3-5 /HPF (0-5) 03/14/19 22:00 Ur Squamous Epith Cells Negative /HPF (NEGATIVE) 03/14/19 22:00 Urine Bacteria Negative /HPF (NEGATIVE) 03/14/19 22:00 Hyaline Casts Few /LPF (NEGATIVE) 03/14/19 22:00 Ur Culture Indicated? No/not indicated 03/14/19 22:00 Reason For Visit: CHEST PAIN R/O MA,ABNORMAL CARDIAC ENZYMES, Discharge Date Discharge Date: 03/15/19 Discharge Diagnosis All Active Problems (Updated 03/15/19 @ 15:11 by Chrissie Estevez) Dilated cardiomyopathy (Acute) SASKIA (obstructive sleep apnea) (Acute) Morbid obesity (Acute) ARF (acute renal failure) (Acute) Iron deficiency anemia (Acute) Incomplete left bundle branch block (LBBB) (Acute) Dyspnea (Acute) Hypokalemia (Acute) Chest pain, rule out acute myocardial infarction (Acute) CHF (congestive heart failure) (Acute) Abnormal cardiac enzyme level (Acute) Hypertensive urgency (Acute) Hypertension (Chronic) Hyperlipidemia (Chronic) Cardiomegaly (Chronic) Plan of Treatment: Continue with present treatment and follow up plan. Pt is to keep follow up appointment as instructed and take medications as ordered. Discharge Medications Discharge Medications: orange Allergy (Verified 03/14/19 12:24) CONTINUE taking the following medications NK 03/14/19 [History] Follow up and Referral Follow Up: 1 Week (PCP) Discharge Disposition Discharge Disposition: Stable
[2019-03-15] MEDS ORDERED: IMDUR PO SCH (21:00)
== END 2019-03-15 14:05 | disposition short-term general hospital (02) ==
LOC: ER 12:15 → ICU 12:15
PROVIDERS: ADMIT Family Medicine; ATTEND Family Medicine
DX: I44.7 Left bundle-branch block, unspecified; I10 Essential (primary) hypertension; G47.33 Obstructive sleep apnea (adult) (pediatric); I42.0 Dilated cardiomyopathy; R06.02 Shortness of breath; E66.01 Morbid (severe) obesity due to excess calories; I50.43 Acute on chronic combined systolic (congestive) and diastolic (congestive) heart failure; E78.2 Mixed hyperlipidemia; R07.89 Other chest pain; R94.31 Abnormal electrocardiogram [ECG] [EKG]; I16.0 Hypertensive urgency; Z72.0 Tobacco use; N17.8 Other acute kidney failure; D50.8 Other iron deficiency anemias
CPT/HCPCS: 36415; 71010; 71045; 80053; 80061; 81001; 82550; 82553; 82607; 82728; 82746; 83540; 83735; 84466; 84484; 85025; 93005; 93306; 96365; 96374; 99285; A4222; G0378; J1940; J8499

== ENCOUNTER 2019-05-05 20:35 | Observation (INO) ==
[2019-05-05 20:49] VITALS: BMI 48.6
--- NOTE | 2019-05-05 21:31 | DR.CP ---
HPI Time Seen Time Seen by Provider: 05/05/19 21:15 PCP Primary Care Physician: ZENIA HPI Comment HPI Comment: PATIENT IS 37YR OLD MALE WITH HISTORY OF CHF AND HTN IN ER WITH INCREASING SOB, INCREASING SWELLING OF LOWER EXTREMITY AND HTN. PATIENT HAVE CHF WITH EF OF 13% ON ECHO DONE 03/16/19. SEVERE LV DILATION, MODERATE CONCENTRIC LVH, GRADE 111 DIASTOLIC DYSFUNTION AND PULMONARY HTN WASREPORTED ALSO. HE WEARS LIFE VEST. HE IS WEAK AND SOB.EDEMA IS WORSE.STARTED HAVING INCREASE SYMPTOMS 2 DAYS AGO AND INTERMITTENT CHEST PAIN STARTED TODAY. BP ELEVATED AND HE TOOK HIS MEDICATION. CURRECTLY PRECORDIAL CHEST PRESSURE 7/10 AND NON RADIATING. Complaint Chief Complaint Doctor Comments: INCREASING SOB, CHEST PAIN AND INCREASE SWELLING LOWER EXTREMITY. Chief Complaint:: PATIENT STATES" IM HAVING SHORTNESS OF BREATH AND MY CHEST STARTED HURTING ITS LIKE SHARP PAINS AND MY FEET ARE SO SWOLLEN I CANT HARDLY WALK. IT STARTED EARLIER TODAY BUT WENT AWAY AND THEN CAME BACK 30MINS [employer]. ME FEET BEEN SWOLLEN FOR ABOUT 2 DAYS. I GOT THIS COUGH THAT JUST WONT GO AWAY FOR A FEW DAYS NOW." Reviewed Nurses Notes Review: Yes Source History Provided: Patient Mode of Arrival Mode of Arrival: Ambulatory Timing Onset of Chief Complaint: 05/05/19 Came on: Gradually Duration Duration: Intermittent (CP. SOB AND EDEMA CONSTANT.) Location Location of Chest Pain: Left and Chest Chest Pain Radiation Location: None Context Onset: At rest Cardiac Risk Factors: HTN PE Risk Factors: None History of: Similar pain in the past Prehospital Care: Oxygen Quality Quality: Pressure like Severity Severity: Moderate Modifying Factors Worsens: Exertion Impoves: Rest Associated Signs and Symptoms Associated Signs and Symptoms: Shortness of Breath and Palpitations PMH PMH Past Medical History: Yes Past Medical History: Anemia, CHF, Dyslipidemia and Hypertension Past Surgical History: Yes Surgical History: Other Family History History of Family Medical Conditions: Yes Family Medical History: Diabetes Mellitus, [place], Coronary Artery Disease and Hypertension Social History Alcohol Use: None Do you use any recreational Drugs:: No infectious screening Have you traveled outside the country in the last 6 months?: No Isolation: Standard ROS Review of Systems Constitutional: See HPI, Weakness and Fatigue Eyes: No Symptoms Reported and See HPI ENTM: No Symptoms Reported and See HPI Respiratoy: Moist Cough, Short of Breath and Wheezing Cardiovascular: See HPI, Chest Pain, Edema and Palpitations Gastrointestinal/Abdominal: See HPI and Nausea; negative Abdominal Pain, Constipation, Diarrhea and Vomiting Genitourinary: No Symptoms Reported, Dysuria, Frequency and Hematuria Neurological: See HPI, Headache, Weakness and Dizziness Musculoskeletal: No Symptoms Reported, See HPI, Back Pain and Muscle Pain Integumentary: No Symptoms Reported and See HPI; negative Change in Color, Rash and Juandice Hematologic/Lymphatic: No Symptoms Reported and See HPI Endocrine: No Symptoms Reported and See HPI; negative Increased Thirst, Increased Urine and Decreased Appetite Psychiatric: No Symptoms Reported and See HPI All Other Systems: Reviewed and Negative PE Vitals Vitals: Temperature 98.0 F Pulse Rate [Apical] 95 Pulse Rate 101 Respiratory Rate 16 Blood Pressure [Left Arm] 167/117 Blood Pressure [Right Arm] 119/78 Blood Pressure 168/118 O2 Sat by Pulse Oximetry 100 General Limitations: No Limitations General Appearance: Alert and In Distress Head Head Exam: Normal Inspection and Atraumatic Eyes Eye exam: Normal Appearance, PERRL and EOMI; negative Scleral Icterus and Conjunctival Injection ENT ENT Exam: Normal Exam, Normal Oropharynx, Normal External Ear Exam and TM's Normal Bilaterally Chest Chest Inspection: Symmetric Chest Wall Rise; negative Tenderness Respiratory Respiratory Exam: Accessory Muscle Use and Respiratory Distress; negative Chest Wall Tenderness Respiratory Exam: Bilateral: Wheezing and Bilateral: Rhonchi and Lower: Wheezing and Lower: Rhonchi Cardiovascular Cardiovascular Exam: Normal Rhythm, Tachycardia and +S3 Pulse: Normal (EDEMA) Edema: 3, Bilateral, Lower and Extremity Abdominal Exam Abdominal Exam: Normal Inspection, Normal Bowel Sounds and Soft; negative Tenderness Extremities Extremities Exam: Edema; negative Calf Tenderness Back Back Exam: Normal Inspection; negative (R) CVA Tenderness and (L) CVA Tenderness Neurologic Neurological Exam: Alert, Oriented X3 and CN II-XII Intact; negative Motor S ensory Deficit Psychiatric Psychiatric Exam: Normal Affect and Anxious Skin Skin Exam: Warm, Dry, Intact and Other (EDEMA.) MDM Differential Diagnosis Differential Diagnosis: Angina, Chest Wall Pain, CHF, Costochondritis, Gastr itis, Myocardial Infarction, Pericarditis, Pleuritis, Pneumonia and Pneumothorax COURSE Treatment Treatment: SEE ORDERS. CLONIDINE 0.1MG, CLONIDINE 0.2MG, LASIX 40MG IV, TORADOL 30MG IV. Reevaluation 1st: Improved and Unchanged (BP UNCHANGE) 2nd: Improved (BP SLIGHTLY IMPROVED BUT STILL HIGH.) 3rd: Improved (CP IMPROVED. BP STILL HIGH.) Consultation Consultation Comments: DISCUSSED PATIENT WITH DR. WYATT AND HE WILL ADMIT PATIENT. Education/Counseling Education/Counseling: Patient Educated On: Diagnosis and Needs for Follow Up ROR Labs Reviewed Laboratory Results Reviewed?: Yes Result Diagrams: 05/10/19 05:36 05/10/19 05:36 Laboratory: WBC 8.5 X10^3/uL (3.6-10.0) 05/05/19 21:42 RBC 4.72 X10^6/uL (4.7-6.0) 05/05/19 21:42 Hgb 10.5 g/dL (13.5-18.0) L 05/05/19 21:42 Hct 32.9 % (42.0-54.0) L 05/05/19 21:42 MCV 69.6 fL (80.0-100.0) L 05/05/19 21:42 MCH 22.1 pg (27.0-34.0) L 05/05/19 21:42 MCHC 31.8 g/dL (33.0-35.0) L 05/05/19 21:42 RDW 16.0 % (11.6-16.5) 05/05/19 21:42 Plt Count 404 X10^3/uL (150.0-450.0) 05/05/19 21:42 Plt Count Comment Adequate (ADEQUATE) 05/05/19 21:42 MPV 7.0 fL (7.4-11.0) L 05/05/19 21:42 Neut % (Auto) 64.1 % (42.0-75.0) 05/05/19 21:42 Lymph % (Auto) 18.7 % (21.0-51.0) L 05/05/19 21:42 [place] % (Auto) 15.4 % (0.0-13.0) H 05/05/19 21:42 Eos % (Auto) 0.5 % (0.9-2.9) L 05/05/19 21:42 Baso % (Auto) 1.3 % (0.2-1.0) H 05/05/19 21:42 Neut # (Auto) 5.4 x10^3/uL (2.2-4.8) H 05/05/19 21:42 Lymph # (Auto) 1.6 X10^3/uL (1.3-2.9) 05/05/19 21:42 [place] # (Auto) 1.3 x10^3/uL (0.3-0.8) H 05/05/19 21:42 Eos # (Auto) 0.0 x10^3/uL (0.0-0.2) 05/05/19 21:42 Baso # (Auto) 0.1 X10^3/uL (0.0-0.1) 05/05/19 21:42 Absolute Nucleated RBC 0.3 /100WBC 05/05/19 21:42 Plt Morphology Comment Normal (NORMAL) 05/05/19 21:42 RBC Morphology Abnormal (NORMAL) 05/05/19 21:42 Hypochromasia 1+ A 05/05/19 21:42 Poikilocytosis Slight A 05/05/19 21:42 Microcytosis 1+ A 05/05/19 21:42 Target Cells Few 05/05/19 21:42 Sample Site Lr 05/05/19 21:31 ABG pH 7.410 (7.35-7.45) 05/05/19 21:31 ABG pCO2 40.0 mmHg (35.0-45.0) 05/05/19 21:31 ABG pO2 75.0 mmHg (80.0-100.0) L 05/05/19 21:31 ABG HCO3 25.4 mmol/L (22-26) 05/05/19 21:31 ABG O2 Saturation 95.0 % (90-100) 05/05/19 21:31 ABG Base Excess 0.7 mmol/L (-2.0-2.0) 05/05/19 21:31 Derick Test Pos 05/05/19 21:31 A-a Gradient 25.0 mmHg 05/05/19 21:31 FiO2 21.0 05/05/19 21:31 Blood Gas Comments [place] well ae 05/05/19 21:31 Sodium 138 mmol/L (136-145) 05/05/19 21:42 Corrected Sodium TNP 05/05/19 21:42 Potassium 4.9 mmol/L (3.5-5.1) 05/05/19 21:42 Chloride 102 mmol/L (98-107) 05/05/19 21:42 Carbon Dioxide 27.1 mmol/L (21-32) 05/05/19 21:42 BUN 24 mg/dL (7-18) H 05/05/19 21:42 Creatinine 1.37 mg/dL (0.70-1.30) H 05/05/19 21:42 Est GFR (MDRD) Af Amer > 60 (>60) 05/05/19 21:42 Est GFR (MDRD) Non-Af > 60 (>60) 05/05/19 21:42 Glucose 95 mg/dL (65-99) 05/05/19 21:42 Calcium 8.5 mg/dL (8.5-10.1) 05/05/19 21:42 Corrected Calcium 9.1 mg/dL (8.5-10.1) 05/05/19 21:42 Total Bilirubin 0.90 mg/dL (0.2-1.0) 05/05/19 21:42 AST 280 Units/L (15-37) H 05/05/19 21:42 ALT 363 Units/L (12-78) H 05/05/19 21:42 Alkaline Phosphatase 75 Units/L (46-116) 05/05/19 21:42 Creatine Kinase 452 Units/L (39-308) H 05/06/19 03:35 CK-MB (CK-2) 1.7 ng/mL (0-4.0) 05/06/19 03:35 CK/CKMB % Calc 0.4 % (<4) 05/06/19 03:35 Troponin I 0.57 ng/mL (0-1.5) 05/06/19 03:35 B-Natriuretic Peptide 1520 pg/mL (0-79) H* 05/05/19 21:42 Total Protein 7.8 g/dL (6.4-8.2) 05/05/19 21:42 Albumin 3.3 g/dL (3.4-5.0) L 05/05/19 21:42 Globulin 4.5 g/dL (2.5-4.5) 05/05/19 21:42 Albumin/Globulin Ratio 0.7 Ratio (1.1-2.1) L 05/05/19 21:42 XRAY XRAY Interpreted by: Radiologist XRAY Findings: REPORT NOTED AND DISCUSSED WITH PATIENT. EKG Rate: 103 [place]: Normal Rhythm: ST Block: RBBB (INCOMPLETE RBBB.) Hypertrophy: LAE and LVH ST: Nonsp Opioid Opioid Risk Tool Age ([place] box if 16-45): Yes History of Preadolescent Sexual Abuse: No Total: 1 Total Score Risk Category: Low Risk Copyright: [facility] predicting aberrant behaviors Diagnosis Discharge Problem: Acute dyspnea, Hypertensive emergency Chest pain Qualifiers: Chest pain type: precordial pain Qualified Code(s): R07.2 - Precordial pain CHF (congestive heart failure) Qualifiers: Heart failure type: combined systolic and diastolic Heart failure chronicity: acute on chronic Qualified Code(s): I50.43 - Acute on chronic combined systolic (congestive) and diastolic (congestive) heart failure Instructions Instructions: Shortness of Breath, Adult, [id number] Nonspecific Chest Pain, [id number] Heart Failure Action Plan Left Bundle Branch Block How to Take Your Blood Pressure, [id number] Hypertension, [id number] Heart Failure Edema, [id number] Chest Wall Pain Angina Pectoris, [id number] Forms: Excuse From Work or School Patient Portal
[2019-05-05 21:36] LABS: ABG ALLEN TEST POS; ABG BASE EXCESS 0.7 mmol/L (-2.0-2.0); ABG HCO3 25.4 mmol/L (22-26)
[2019-05-05 21:52] LABS: BASOPHILS # (AUTO) 0.1 X10^3/uL (0.0-0.1); BASOPHILS % (AUTO) 1.3 % (0.2-1.0); EOSINOPHILS % (AUTO) 0.5 % (0.9-2.9); HEMATOCRIT 32.9 % (42.0-54.0); HEMOGLOBIN 10.5 g/dL (13.5-18.0); LYMPHOCYTES # (AUTO) 1.6 X10^3/uL (1.3-2.9); LYMPHOCYTES % (AUTO) 18.7 % (21.0-51.0); MEAN CORPUSCULAR HEMOGLOBIN 22.1 pg (27.0-34.0); MEAN CORPUSCULAR HGB CONC 31.8 g/dL (33.0-35.0); MEAN CORPUSCULAR VOLUME 69.6 fL (80.0-100.0); MONOCYTES # (AUTO) 1.3 x10^3/uL (0.3-0.8); MONOCYTES % (AUTO) 15.4 % (0.0-13.0); NEUTROPHILS # (AUTO) 5.4 x10^3/uL (2.2-4.8); NEUTROPHILS % (AUTO) 64.1 % (42.0-75.0); PLATELET COUNT 404 X10^3/uL (150.0-450.0); RED BLOOD COUNT 4.72 X10^6/uL (4.7-6.0); WHITE BLOOD COUNT 8.5 X10^3/uL (3.6-10.0)
[2019-05-05 22:06] LABS: BLOOD UREA NITROGEN 24 mg/dL (7-18); CALCIUM 8.5 mg/dL (8.5-10.1); CARBON DIOXIDE 27.1 mmol/L (21-32); CHLORIDE 102 mmol/L (98-107); CREATININE 1.37 mg/dL (0.70-1.30); SODIUM 138 mmol/L (136-145); TROPONIN I 0.55 ng/mL (0-1.5); eGFR NON BLACK RACES > 60 (>60)
[2019-05-05 22:10] LABS: ALANINE AMINOTRANSFERASE 363 Units/L (12-78); ALBUMIN 3.3 g/dL (3.4-5.0); ALKALINE PHOSPHATASE 75 Units/L (46-116); ASPARTATE AMINO TRANSFERASE 280 Units/L (15-37); CKMB % 0.5 % (<4); COR CA(FOR HYPOALB) 9.1 mg/dL (8.5-10.1); CREATINE KINASE 397 Units/L (39-308); CREATINE KINASE MB 1.9 ng/mL (0-4.0); HYPOCHROMASIA 1+; MICROCYTOSIS 1+; PLATELET MORPHOLOGY COMMENT NORMAL (NORMAL); POIKILOCYTOSIS SLIGHT; TARGET CELLS FEW; TOTAL PROTEIN 7.8 g/dL (6.4-8.2)
--- NOTE | 2019-05-05 22:31 | RAD ---
HISTORYSOBSTUDYCHEST, 1 VIEWCOMPARISONNoneFINDINGSThe trachea is midline. The cardiac silhouette is markedly enlarged. The lungs are clear without focal infiltrate or effusion. ScratchIMPRESSIONMarked enlargement of the cardiac silhouette.Electronically signed by: JESSICA ZAMORANO (May 05, 2019 22:29:46)
[2019-05-05] MEDS ORDERED: CATAPRES TAB 0.1 MG PO ONE (23:45)
[2019-05-05] MEDS ORDERED: CATAPRES TAB 0.1 MG ONE (23:46)
[2019-05-06] MEDS ORDERED: CATAPRES TAB 0.2 MG PO ONE (00:53)
[2019-05-06] MEDS ORDERED: CATAPRES TAB 0.2 MG ONE (00:55)
[2019-05-06] MEDS ORDERED: LASIX IVP ONE ×2 (02:08→02:13)
[2019-05-06] MEDS ORDERED: TORADOL 30 MG VIAL IVP ONE (02:08)
[2019-05-06] MEDS ORDERED: TORADOL 30 MG VIAL ONE (02:13)
[2019-05-06 04:07] LABS: CKMB % 0.4 % (<4); CREATINE KINASE MB 1.7 ng/mL (0-4.0); TROPONIN I 0.57 ng/mL (0-1.5)
[2019-05-06] MEDS ORDERED: APRESOLINE TAB 25 MG ONE (06:32)
[2019-05-06] MEDS: APRESOLINE TAB 25 MG PO SCH ×3 (06:39→21:25)
[2019-05-06] MEDS: ALDACTONE TAB 25 MG PO SCH (09:46)
[2019-05-06] MEDS: IMDUR PO SCH (09:46)
[2019-05-06] MEDS: ENTRESTO 24/26 MG TAB PO SCH ×2 (09:46→21:25)
[2019-05-06 10:00] LABS: CKMB % 0.5 % (<4); CREATINE KINASE MB 1.9 ng/mL (0-4.0); TROPONIN I 0.5 ng/mL (0-1.5)
[2019-05-06] MEDS ORDERED: COREG TAB 12.5 MG PO SCH (13:00)
--- NOTE | 2019-05-06 13:03 | DR.H&P ---
H&P - History & Physical for Day of: H&P Date: 05/06/19 - Chief Complaint Chief Complaint: CHEST PAIN, SOB - History of Present Illness History of Present Illness: PT IS 28 BM ER ADMISSION WITH CHEST PAIN AND SOB, PT HAS CHF RECENTLY DIAGNOSED CHF AND BEEN UNDER THE CARE OF DR KNUTSON AT [facility]. PT HAS LIFE VEST, BUT TOOK IT OFF LAST NIGHT. PT EVALUATED IN ER, BP ELEVATED 182/124. PT REPORTS HE HAS BEEN TAKING HIS MEDICATION PRESCRIBED. - Past Medical History Past Medical History: Hypertension, Dyslipidemia, Anemia, CHF - Past Surgical History Surgical History: Other - Family History Family Medical History: Diabetes Mellitus, [place], Coronary Artery Disease, Hypertension - Social History Does patient currently use any type of tobacco product: No Have you used tobacco products in the last 12 months: Yes (LAST MONTH HE QUIT) Type of Tobacco Use: Cigarettes Does any household member use tobacco: No Alcohol Use: None - Medications Home Medications: orange Allergy (Verified 05/05/19 20:49) - Review of Systems Constitutional: Weakness Eyes: No Symptoms Reported ENT: No Symptoms Reported Respiratory: Shortness of Breath, SOB with Excertion Cardiovascular: Chest Pain, Edema Gastrointestinal: No Symptoms Reported Genitourinary: No Symptoms Reported Musculoskeletal: No Symptoms Reported Skin: No Symptoms Reported Neurological: No Symptoms Reported - Physical Exam Vital Signs: Temperature 97.6 F Pulse Rate [Left Brachial] 97 Pulse Rate [Apical] 92 Pulse Rate 101 Respiratory Rate 20 Blood Pressure [Left Arm] 178/114 Blood Pressure [Right Arm] 119/78 Blood Pressure 168/118 O2 Sat by Pulse Oximetry 100 Oriented: Normal Eyes: Normal Ear: Normal Nose: Normal Throat: Normal Respiratory: RLL Diminished, LLL Diminished Cardiovascular: Normal : Normal Auscultation: Bowel Sounds: Normal Palpation: Normal Tenderness: Normal Skin: Normal Psychiatric: Anxiety Affect: Anxious Speech Pattern: Clear, Appropriate - Assessment/Plan (1) Chest pain Status: Acute Plan: ADMIT, SERIAL EKGS AND CE. BP CONTROL, CONTINUOUS CARDIAC MONITORING. SUPPLEMENTAL O2. VERIFY HOME MEDICATION. OBTAIN LAST CATH REPORT. CXR ON ADMISSION, STRICT I & OS (2) Hypertension, uncontrolled Status: Acute (3) Non-ischemic cardiomyopathy Status: Acute (4) CHF (congestive heart failure) Status: Acute (5) Dilated cardiomyopathy Status: Acute (6) Abnormal cardiac enzyme level Status: Acute - Allergies Allergies/Adverse Reactions: Allergies Allergy/AdvReac Type Severity Reaction Status Date / Time orange Allergy Verified 05/05/19 20:49
[2019-05-06] MEDS: COREG TAB 25 MG PO SCH (21:25)
[2019-05-07] MEDS ORDERED: CATAPRES TAB 0.1 MG ONE (00:44)
[2019-05-07] MEDS: CATAPRES TAB 0.1 MG PO PRN (01:01)
[2019-05-07] MEDS: APRESOLINE TAB 25 MG PO SCH ×4 (05:08→21:43)
[2019-05-07 06:28] LABS: BASOPHILS # (AUTO) 0.1 X10^3/uL (0.0-0.1); BASOPHILS % (AUTO) 1.5 % (0.2-1.0); EOSINOPHILS # (AUTO) 0.2 x10^3/uL (0.0-0.2); EOSINOPHILS % (AUTO) 2.2 % (0.9-2.9); HEMATOCRIT 34.6 % (42.0-54.0); HEMOGLOBIN 10.7 g/dL (13.5-18.0); LYMPHOCYTES # (AUTO) 1.8 X10^3/uL (1.3-2.9); LYMPHOCYTES % (AUTO) 23.9 % (21.0-51.0); MEAN CORPUSCULAR HEMOGLOBIN 21.5 pg (27.0-34.0); MEAN CORPUSCULAR HGB CONC 30.9 g/dL (33.0-35.0); MEAN CORPUSCULAR VOLUME 69.7 fL (80.0-100.0); MEAN PLATELET VOLUME 7.3 fL (7.4-11.0); MONOCYTES # (AUTO) 1.1 x10^3/uL (0.3-0.8); MONOCYTES % (AUTO) 13.8 % (0.0-13.0); NEUTROPHILS # (AUTO) 4.5 x10^3/uL (2.2-4.8); NEUTROPHILS % (AUTO) 58.6 % (42.0-75.0); PLATELET COUNT 388 X10^3/uL (150.0-450.0); RED BLOOD COUNT 4.97 X10^6/uL (4.7-6.0); WHITE BLOOD COUNT 7.7 X10^3/uL (3.6-10.0)
[2019-05-07 06:55] LABS: ALANINE AMINOTRANSFERASE 466 Units/L (12-78); ALBUMIN 2.8 g/dL (3.4-5.0); ALKALINE PHOSPHATASE 87 Units/L (46-116); ASPARTATE AMINO TRANSFERASE 191 Units/L (15-37); BLOOD UREA NITROGEN 19 mg/dL (7-18); CALCIUM 7.5 mg/dL (8.5-10.1); CHLORIDE 102 mmol/L (98-107); CHOL/HDL RATIO 5.5 (0.0-5.0); CHOLESTEROL 144 mg/dL (0-200); CKMB % 0.3 % (<4); COR CA(FOR HYPOALB) 8.5 mg/dL (8.5-10.1); CREATINE KINASE 412 Units/L (39-308); CREATINE KINASE MB 1.1 ng/mL (0-4.0); CREATININE 1.13 mg/dL (0.70-1.30); HDL CHOLESTEROL 26 mg/dL (40-60); SODIUM 137 mmol/L (136-145); TOTAL PROTEIN 7.1 g/dL (6.4-8.2); TRIGLYCERIDES 79 mg/dL (0-150); TROPONIN I 0.51 ng/mL (0-1.5); eGFR NON BLACK RACES > 60 (>60)
[2019-05-07 07:26] LABS: HYPOCHROMASIA 2+; MICROCYTOSIS 1+; PLATELET MORPHOLOGY COMMENT NORMAL (NORMAL)
[2019-05-07 07:27] LABS: POIKILOCYTOSIS SLIGHT; TARGET CELLS FEW
[2019-05-07] MEDS: ALDACTONE TAB 25 MG PO SCH (10:00)
[2019-05-07] MEDS: COREG TAB 25 MG PO SCH ×2 (10:00→20:44)
[2019-05-07] MEDS: IMDUR PO SCH (14:23)
--- NOTE | 2019-05-07 17:24 | RAD ---
HISTORYCHF chest painSTUDYPortable AP [id number] cardiomegaly with essentially clear lungs and pleural spac es.IMPRESSIONStable cardiomegaly. No acute pulmonary lesion demonstrated. No change since prior.Elect ronically signed by: CARLOS BLEVINS (May 07, 2019 17:23:45)
[2019-05-07] MEDS: ENTRESTO 24/26 MG TAB PO SCH (20:43)
[2019-05-08] MEDS: CATAPRES TAB 0.1 MG PO PRN ×2 (00:12→20:48)
[2019-05-08] MEDS: APRESOLINE TAB 25 MG PO SCH ×4 (04:37→21:03)
[2019-05-08 05:58] LABS: BASOPHILS # (AUTO) 0.1 X10^3/uL (0.0-0.1); EOSINOPHILS # (AUTO) 0.2 x10^3/uL (0.0-0.2); EOSINOPHILS % (AUTO) 2.3 % (0.9-2.9); HEMATOCRIT 32.9 % (42.0-54.0); HEMOGLOBIN 10.1 g/dL (13.5-18.0); LYMPHOCYTES # (AUTO) 1.3 X10^3/uL (1.3-2.9); LYMPHOCYTES % (AUTO) 20.2 % (21.0-51.0); MEAN CORPUSCULAR HEMOGLOBIN 21.6 pg (27.0-34.0); MEAN CORPUSCULAR HGB CONC 30.7 g/dL (33.0-35.0); MEAN CORPUSCULAR VOLUME 70.5 fL (80.0-100.0); MEAN PLATELET VOLUME 7.3 fL (7.4-11.0); MONOCYTES # (AUTO) 1.1 x10^3/uL (0.3-0.8); NEUTROPHILS % (AUTO) 60.5 % (42.0-75.0); PLATELET COUNT 328 X10^3/uL (150.0-450.0); RED BLOOD COUNT 4.67 X10^6/uL (4.7-6.0); RED CELL DISTRIBUTION WIDTH 16.3 % (11.6-16.5); WHITE BLOOD COUNT 6.7 X10^3/uL (3.6-10.0)
[2019-05-08 06:09] LABS: ALANINE AMINOTRANSFERASE 372 Units/L (12-78); ALBUMIN 2.9 g/dL (3.4-5.0); ALKALINE PHOSPHATASE 90 Units/L (46-116); ASPARTATE AMINO TRANSFERASE 85 Units/L (15-37); BLOOD UREA NITROGEN 16 mg/dL (7-18); CALCIUM 7.8 mg/dL (8.5-10.1); CARBON DIOXIDE 25.9 mmol/L (21-32); CHLORIDE 105 mmol/L (98-107); COR CA(FOR HYPOALB) 8.7 mg/dL (8.5-10.1); CREATININE 0.98 mg/dL (0.70-1.30); SODIUM 141 mmol/L (136-145); TOTAL PROTEIN 7.1 g/dL (6.4-8.2); eGFR NON BLACK RACES > 60 (>60)
[2019-05-08 07:17] LABS: HYPOCHROMASIA 2+; MICROCYTOSIS SLIGHT; PLATELET MORPHOLOGY COMMENT NORMAL (NORMAL); TARGET CELLS SLIGHT
[2019-05-08] MEDS: ENTRESTO 24/26 MG TAB PO SCH ×2 (08:55→20:48)
[2019-05-08] MEDS: COREG TAB 25 MG PO SCH ×2 (08:55→20:47)
[2019-05-08] MEDS: ALDACTONE TAB 25 MG PO SCH (08:55)
[2019-05-08] MEDS: IMDUR PO SCH (08:56)
[2019-05-09] MEDS: APRESOLINE TAB 25 MG PO SCH ×3 (05:17→22:03)
[2019-05-09 06:22] LABS: ALANINE AMINOTRANSFERASE 290 Units/L (12-78); ALBUMIN 2.9 g/dL (3.4-5.0); ALKALINE PHOSPHATASE 83 Units/L (46-116); ASPARTATE AMINO TRANSFERASE 65 Units/L (15-37); BLOOD UREA NITROGEN 17 mg/dL (7-18); CARBON DIOXIDE 25.5 mmol/L (21-32); CHLORIDE 104 mmol/L (98-107); COR CA(FOR HYPOALB) 8.9 mg/dL (8.5-10.1); CREATININE 1.18 mg/dL (0.70-1.30); SODIUM 137 mmol/L (136-145); TOTAL PROTEIN 7.4 g/dL (6.4-8.2); eGFR NON BLACK RACES > 60 (>60)
[2019-05-09 06:24] LABS: BASOPHILS % (AUTO) 0.7 % (0.2-1.0); EOSINOPHILS # (AUTO) 0.2 x10^3/uL (0.0-0.2); EOSINOPHILS % (AUTO) 2.3 % (0.9-2.9); HEMOGLOBIN 10.7 g/dL (13.5-18.0); LYMPHOCYTES # (AUTO) 1.9 X10^3/uL (1.3-2.9); LYMPHOCYTES % (AUTO) 28.6 % (21.0-51.0); MEAN CORPUSCULAR HEMOGLOBIN 21.7 pg (27.0-34.0); MEAN CORPUSCULAR HGB CONC 30.6 g/dL (33.0-35.0); MEAN CORPUSCULAR VOLUME 70.8 fL (80.0-100.0); MONOCYTES # (AUTO) 0.8 x10^3/uL (0.3-0.8); MONOCYTES % (AUTO) 12.4 % (0.0-13.0); NEUTROPHILS # (AUTO) 3.8 x10^3/uL (2.2-4.8); PLATELET COUNT 165 X10^3/uL (150.0-450.0); RED BLOOD COUNT 4.95 X10^6/uL (4.7-6.0); RED CELL DISTRIBUTION WIDTH 16.2 % (11.6-16.5); WHITE BLOOD COUNT 6.7 X10^3/uL (3.6-10.0)
[2019-05-09 06:44] LABS: PLATELET MORPHOLOGY COMMENT NORMAL (NORMAL)
--- NOTE | 2019-05-09 08:27 | PCM.PROG ---
Progress Note - Progress Note for Day of Date of Exam: 05/07/19 - Subjective Subjective: PT IS 28 BM ER ADMISSION AFTER PRESENTING WITH CO CHEST PAIN AND LOWER EXTREMITY SWELLING, INCREASED SOB. PT WAS RECENTLY DIAGNOSED WITH NON ISCHEMIC CARDIOMYOPATHY. PT HAS BEEN UNDER THE CARE OF [facility] CARDIOLOG[facility]. PT HAD HEART CATH LAST MONTH AND WAS STARTED ON ENTRESTO ALONG WITH DIURETICS AND BB FOR MEDICATION MANAGEMENT OF HEART FAILURE. PT REPORTS HE HAS HAD LIFE VEST WHICH HE REMOVED PRIOR TO ER ARRIVAL. PT HAS HAD CONTINUOUS CARDIAC MONITORING AND SUPPLEMENTAL O2 WITH STRICT I &OS, NO EFFUSION ON CHEST XRAY. PO2 75 ON BLOOD GAS. PT REPORTS HE IS FEELING BETTER THAN ON ADMISSION, DENIES ANY CHEST PAIN THIS AM. PT CONTINUES WITH ELEVATED BLOOD PRESSURE, WE INCREASED ENTRESTO THIS AM, AND REPEAT CE. IMPROVING LOWER EXTREMITY EDEMA. EKG WITH LEFT BBB, NO ST ELEVATIONS, CONTROLLED RATE. - Past Medical Family Social History Past Med/Fam/Surg Hx: No changes since H&P Allergies: Allergies orange Allergy (Verified 05/05/19 20:49) - Review of Systems ROS: No change since H&P - Vital Signs and I&O's Vital Signs: Temperature 98.1 F Pulse Rate [Left Brachial] 87 Pulse Rate [Apical] 92 Pulse Rate 101 Respiratory Rate 22 Blood Pressure [Left Arm] 133/92 Blood Pressure [Right Arm] 119/78 Blood Pressure 168/118 O2 Sat by Pulse Oximetry 99 Intake and Output: Intake & Output 05/06/19 05/07/19 05/08/19 05/09/19 11:59 11:59 11:59 11:59 Intake Total 2690 / 2690 1160 / 1160 2280 / 2280 Output Total 800 / 800 450 / 450 1000 / 1000 850 / 850 Balance -800 / -800 2240 / 2240 160 / 160 1430 / 1430 - Physical Exam Oriented: Normal Eyes: Normal Ear: Normal Nose: Normal Throat: Normal Respiratory: Diminished Cardiovascular: Normal, Edema : Normal Auscultation: Bowel Sounds: Normal Tenderness: Normal Skin: Normal Psychiatric: Anxiety Affect: Anxious Speech Pattern: Clear, Appropriate - Laboratory and Diagnostics Result Diagrams: 05/09/19 05:40 05/09/19 05:40 Labs: Laboratory WBC 6.7 X10^3/uL (3.6-10.0) 05/09/19 05:40 RBC 4.95 X10^6/uL (4.7-6.0) 05/09/19 05:40 Hgb 10.7 g/dL (13.5-18.0) L 05/09/19 05:40 Hct 35.0 % (42.0-54.0) L 05/09/19 05:40 MCV 70.8 fL (80.0-100.0) L 05/09/19 05:40 MCH 21.7 pg (27.0-34.0) L 05/09/19 05:40 MCHC 30.6 g/dL (33.0-35.0) L 05/09/19 05:40 RDW 16.2 % (11.6-16.5) 05/09/19 05:40 Plt Count 165 X10^3/uL (150.0-450.0) 05/09/19 05:40 Plt Count Comment Adequate (ADEQUATE) 05/09/19 05:40 MPV 7.0 fL (7.4-11.0) L 05/09/19 05:40 Neut % (Auto) 56.0 % (42.0-75.0) 05/09/19 05:40 Lymph % (Auto) 28.6 % (21.0-51.0) 05/09/19 05:40 [place] % (Auto) 12.4 % (0.0-13.0) 05/09/19 05:40 Eos % (Auto) 2.3 % (0.9-2.9) 05/09/19 05:40 Baso % (Auto) 0.7 % (0.2-1.0) 05/09/19 05:40 Neut # (Auto) 3.8 x10^3/uL (2.2-4.8) 05/09/19 05:40 Lymph # (Auto) 1.9 X10^3/uL (1.3-2.9) 05/09/19 05:40 [place] # (Auto) 0.8 x10^3/uL (0.3-0.8) 05/09/19 05:40 Eos # (Auto) 0.2 x10^3/uL (0.0-0.2) 05/09/19 05:40 Baso # (Auto) 0.0 X10^3/uL (0.0-0.1) 05/09/19 05:40 Absolute Nucleated RBC 0.2 /100WBC 05/09/19 05:40 Plt Clumps, EDTA Few 05/09/19 05:40 Plt Morphology Comment Normal (NORMAL) 05/09/19 05:40 RBC Morphology Normal (NORMAL) 05/09/19 05:40 Hypochromasia 2+ A 05/08/19 04:15 Poikilocytosis Slight A 05/07/19 05:57 Microcytosis Slight A 05/08/19 04:15 Target Cells Slight A 05/08/19 04:15 Sample Site Lr 05/05/19 21:31 ABG pH 7.410 (7.35-7.45) 05/05/19 21:31 ABG pCO2 40.0 mmHg (35.0-45.0) 05/05/19 21:31 ABG pO2 75.0 mmHg (80.0-100.0) L 05/05/19 21:31 ABG HCO3 25.4 mmol/L (22-26) 05/05/19 21:31 ABG O2 Saturation 95.0 % (90-100) 05/05/19 21:31 ABG Base Excess 0.7 mmol/L (-2.0-2.0) 05/05/19 21:31 Derick Test Pos 05/05/19 21:31 A-a Gradient 25.0 mmHg 05/05/19 21:31 FiO2 21.0 05/05/19 21:31 Blood Gas Comments Pantera well ae 05/05/19 21:31 Sodium 137 mmol/L (136-145) 05/09/19 05:40 Corrected Sodium TNP 05/09/19 05:40 Potassium 4.7 mmol/L (3.5-5.1) 05/09/19 05:40 Chloride 104 mmol/L (98-107) 05/09/19 05:40 Carbon Dioxide 25.5 mmol/L (21-32) 05/09/19 05:40 BUN 17 mg/dL (7-18) 05/09/19 05:40 Creatinine 1.18 mg/dL (0.70-1.30) 05/09/19 05:40 Est GFR (MDRD) Af Amer > 60 (>60) 05/09/19 05:40 Est GFR (MDRD) Non-Af > 60 (>60) 05/09/19 05:40 Glucose 101 mg/dL (65-99) H 05/09/19 05:40 Calcium 8.0 mg/dL (8.5-10.1) L 05/09/19 05:40 Corrected Calcium 8.9 mg/dL (8.5-10.1) 05/09/19 05:40 Total Bilirubin 0.40 mg/dL (0.2-1.0) 05/09/19 05:40 AST 65 Units/L (15-37) H 05/09/19 05:40 ALT 290 Units/L (12-78) H 05/09/19 05:40 Alkaline Phosphatase 83 Units/L (46-116) 05/09/19 05:40 Creatine Kinase 412 Units/L (39-308) H 05/07/19 05:57 CK-MB (CK-2) 1.1 ng/mL (0-4.0) 05/07/19 05:57 CK/CKMB % Calc 0.3 % (<4) 05/07/19 05:57 Troponin I 0.51 ng/mL (0-1.5) 05/07/19 05:57 B-Natriuretic Peptide 1520 pg/mL (0-79) H* 05/05/19 21:42 Total Protein 7.4 g/dL (6.4-8.2) 05/09/19 05:40 Albumin 2.9 g/dL (3.4-5.0) L 05/09/19 05:40 Globulin 4.5 g/dL (2.5-4.5) 05/09/19 05:40 Albumin/Globulin Ratio 0.6 Ratio (1.1-2.1) L 05/09/19 05:40 Triglycerides 79 mg/dL (0-150) 05/07/19 05:57 Cholesterol 144 mg/dL (0-200) 05/07/19 05:57 LDL Cholesterol, Calc 102 mg/dL (0-100) H 05/07/19 05:57 HDL Cholesterol 26 mg/dL (40-60) L 05/07/19 05:57 Cholesterol/HDL Ratio 5.5 (0.0-5.0) H 05/07/19 05:57 - Plan (1) Non-ischemic cardiomyopathy Status: Acute Plan: BP CONTROL, CONTINOUS CARDIAC MONITORING. REPEAT CE AND EKG. INCREASED ENTRESTO. STRICT I&OS. REPEAT CXR, SUPPLEMENTAL O2. NEED OVERNIGHT PULSE OX, RECOMMEND OUTPT SLEEP STUDY (2) Chest pain Status: Acute Plan: SERIAL EKGS AND CE. BP CONTROL, CONTINUOUS CARDIAC MONITORING. OSPINA PPLEMENTAL O2. VERIFY HOME MEDICATION. OBTAIN LAST CATH REPORT. CXR ON ADMISSION, STRICT I & OS (3) Hypertension, uncontrolled Status: Acute (4) CHF (congestive heart failure) Status: Acute (5) Dilated cardiomyopathy Status: Acute (6) Abnormal cardiac enzyme level Status: Acute
--- NOTE | 2019-05-09 08:37 | PCM.PROG ---
Progress Note - Progress Note for Day of Date of Exam: 05/09/19 - Subjective Subjective: PT IS 28 BM ER ADMISSION AFTER PRESENTING WITH CO CHEST PAIN AND LOWER EXTREMITY SWELLING, INCREASED SOB. PT WAS RECENTLY DIAGNOSED WITH NON ISCHEMIC CARDIOMYOPATHY. PT HAS BEEN UNDER THE CARE OF [facility] CARDI[facility]. PT HAD HEART CATH LAST MONTH AND WAS STARTED ON ENTRESTO ALONG WITH DIURETICS AND BB FOR MEDICATION MANAGEMENT OF HEART FAILURE. PT REPORTS HE HAS HAD LIFE VEST WHICH HE REMOVED PRIOR TO ER ARRIVAL. PT HAS HAD CONTINUOUS CARDIAC MONITORING AND SUPPLEMENTAL O2 WITH STRICT I &OS, NO EFFUSION ON CHEST XRAY. PO2 75 ON BLOOD GAS. PT REPORTS HE IS FEELING BETTER THAN ON ADMISSION, DENIES ANY CHEST PAIN THIS AM. ENTRESTO WAS INCREASED YESTERDAY WITH BP 130/80, REPORTS GOOD URINE OUTPT AND FEELING BETTER TODAY. BUN 16 CREAT 0.98. RECOMMENDED SLEEP STUDY ON OUTPT BASIS. PT WILL NEED TO F/U WITH DR KNUTSON ON DISCHARGE. CKP ELEVATED ON CE, ENCOURAGED ORAL H20 HYDRATION. PT DENIES MYALGIAS THIS AM. IMPROVING LFT'S - Past Medical Family Social History Past Med/Fam/Surg Hx: No changes since H&P Allergies: Allergies orange Allergy (Verified 05/05/19 20:49) - Review of Systems ROS: No change since H&P - Vital Signs and I&O's Vital Signs: Temperature 98.1 F Pulse Rate [Left Brachial] 87 Pulse Rate [Apical] 92 Pulse Rate 101 Respiratory Rate 22 Blood Pressure [Left Arm] 133/92 Blood Pressure [Right Arm] 119/78 Blood Pressure 168/118 O2 Sat by Pulse Oximetry 99 Intake and Output: Intake & Output 05/06/19 05/07/19 05/08/19 05/09/19 11:59 11:59 11:59 11:59 Intake Total 2690 / 2690 1160 / 1160 2280 / 2280 Output Total 800 / 800 450 / 450 1000 / 1000 850 / 850 Balance -800 / -800 2240 / 2240 160 / 160 1430 / 1430 - Physical Exam Oriented: Normal Eyes: Normal Ear: Normal Nose: Normal Throat: Normal Respiratory: Diminished Cardiovascular: Normal, Edema : Normal Auscultation: Bowel Sounds: Normal Tenderness: Normal Skin: Normal Psychiatric: Anxiety Affect: Anxious Speech Pattern: Clear, Appropriate - Laboratory and Diagnostics Result Diagrams: 05/09/19 05:40 05/09/19 05:40 Labs: Laboratory WBC 6.7 X10^3/uL (3.6-10.0) 05/09/19 05:40 RBC 4.95 X10^6/uL (4.7-6.0) 05/09/19 05:40 Hgb 10.7 g/dL (13.5-18.0) L 05/09/19 05:40 Hct 35.0 % (42.0-54.0) L 05/09/19 05:40 MCV 70.8 fL (80.0-100.0) L 05/09/19 05:40 MCH 21.7 pg (27.0-34.0) L 05/09/19 05:40 MCHC 30.6 g/dL (33.0-35.0) L 05/09/19 05:40 RDW 16.2 % (11.6-16.5) 05/09/19 05:40 Plt Count 165 X10^3/uL (150.0-450.0) 05/09/19 05:40 Plt Count Comment Adequate (ADEQUATE) 05/09/19 05:40 MPV 7.0 fL (7.4-11.0) L 05/09/19 05:40 Neut % (Auto) 56.0 % (42.0-75.0) 05/09/19 05:40 Lymph % (Auto) 28.6 % (21.0-51.0) 05/09/19 05:40 [place] % (Auto) 12.4 % (0.0-13.0) 05/09/19 05:40 Eos % (Auto) 2.3 % (0.9-2.9) 05/09/19 05:40 Baso % (Auto) 0.7 % (0.2-1.0) 05/09/19 05:40 Neut # (Auto) 3.8 x10^3/uL (2.2-4.8) 05/09/19 05:40 Lymph # (Auto) 1.9 X10^3/uL (1.3-2.9) 05/09/19 05:40 [place] # (Auto) 0.8 x10^3/uL (0.3-0.8) 05/09/19 05:40 Eos # (Auto) 0.2 x10^3/uL (0.0-0.2) 05/09/19 05:40 Baso # (Auto) 0.0 X10^3/uL (0.0-0.1) 05/09/19 05:40 Absolute Nucleated RBC 0.2 /100WBC 05/09/19 05:40 Plt Clumps, EDTA Few 05/09/19 05:40 Plt Morphology Comment Normal (NORMAL) 05/09/19 05:40 RBC Morphology Normal (NORMAL) 05/09/19 05:40 Hypochromasia 2+ A 05/08/19 04:15 Poikilocytosis Slight A 05/07/19 05:57 Microcytosis Slight A 05/08/19 04:15 Target Cells Slight A 05/08/19 04:15 Sample Site Lr 05/05/19 21:31 ABG pH 7.410 (7.35-7.45) 05/05/19 21:31 ABG pCO2 40.0 mmHg (35.0-45.0) 05/05/19 21:31 ABG pO2 75.0 mmHg (80.0-100.0) L 05/05/19 21:31 ABG HCO3 25.4 mmol/L (22-26) 05/05/19 21:31 ABG O2 Saturation 95.0 % (90-100) 05/05/19 21:31 ABG Base Excess 0.7 mmol/L (-2.0-2.0) 05/05/19 21:31 Derick Test Pos 05/05/19 21:31 A-a Gradient 25.0 mmHg 05/05/19 21:31 FiO2 21.0 05/05/19 21:31 Blood Gas Comments Pantera well ae 05/05/19 21:31 Sodium 137 mmol/L (136-145) 05/09/19 05:40 Corrected Sodium TNP 05/09/19 05:40 Potassium 4.7 mmol/L (3.5-5.1) 05/09/19 05:40 Chloride 104 mmol/L (98-107) 05/09/19 05:40 Carbon Dioxide 25.5 mmol/L (21-32) 05/09/19 05:40 BUN 17 mg/dL (7-18) 05/09/19 05:40 Creatinine 1.18 mg/dL (0.70-1.30) 05/09/19 05:40 Est GFR (MDRD) Af Amer > 60 (>60) 05/09/19 05:40 Est GFR (MDRD) Non-Af > 60 (>60) 05/09/19 05:40 Glucose 101 mg/dL (65-99) H 05/09/19 05:40 Calcium 8.0 mg/dL (8.5-10.1) L 05/09/19 05:40 Corrected Calcium 8.9 mg/dL (8.5-10.1) 05/09/19 05:40 Total Bilirubin 0.40 mg/dL (0.2-1.0) 05/09/19 05:40 AST 65 Units/L (15-37) H 05/09/19 05:40 ALT 290 Units/L (12-78) H 05/09/19 05:40 Alkaline Phosphatase 83 Units/L (46-116) 05/09/19 05:40 Creatine Kinase 412 Units/L (39-308) H 05/07/19 05:57 CK-MB (CK-2) 1.1 ng/mL (0-4.0) 05/07/19 05:57 CK/CKMB % Calc 0.3 % (<4) 05/07/19 05:57 Troponin I 0.51 ng/mL (0-1.5) 05/07/19 05:57 B-Natriuretic Peptide 1520 pg/mL (0-79) H* 05/05/19 21:42 Total Protein 7.4 g/dL (6.4-8.2) 05/09/19 05:40 Albumin 2.9 g/dL (3.4-5.0) L 05/09/19 05:40 Globulin 4.5 g/dL (2.5-4.5) 05/09/19 05:40 Albumin/Globulin Ratio 0.6 Ratio (1.1-2.1) L 05/09/19 05:40 Triglycerides 79 mg/dL (0-150) 05/07/19 05:57 Cholesterol 144 mg/dL (0-200) 05/07/19 05:57 LDL Cholesterol, Calc 102 mg/dL (0-100) H 05/07/19 05:57 HDL Cholesterol 26 mg/dL (40-60) L 05/07/19 05:57 Cholesterol/HDL Ratio 5.5 (0.0-5.0) H 05/07/19 05:57 - Plan (1) Non-ischemic cardiomyopathy Status: Acute Plan: BP CONTROL, CONTINOUS CARDIAC MONITORING. REPEAT CE AND EKG. INCREASED ENTRESTO. STRICT I&OS. REPEAT CXR, SUPPLEMENTAL O2. NEED OVERNIGHT PULSE OX, RECOMMEND OUTPT SLEEP STUDY (2) Chest pain Status: Acute Plan: SERIAL EKGS AND CE. BP CONTROL, CONTINUOUS CARDIAC MONITORING. SUPPLEMENTAL O2. VERIFY HOME MEDICATION. OBTAIN LAST CATH REPORT. CXR ON ADMISSION, STRICT I & OS (3) Hypertension, uncontrolled Status: Acute (4) CHF (congestive heart failure) Status: Acute (5) Dilated cardiomyopathy Status: Acute (6) Abnormal cardiac enzyme level Status: Acute
[2019-05-09] MEDS: IMDUR PO SCH (09:14)
[2019-05-09] MEDS: ALDACTONE TAB 25 MG PO SCH (09:15)
[2019-05-09] MEDS: COREG TAB 25 MG PO SCH ×2 (09:15→20:34)
[2019-05-09] MEDS: ENTRESTO 24/26 MG TAB PO SCH ×2 (09:15→20:34)
[2019-05-09 10:50] LABS: CKMB % 0.5 % (<4); CREATINE KINASE MB 1.5 ng/mL (0-4.0); TROPONIN I 0.45 ng/mL (0-1.5)
--- NOTE | 2019-05-09 11:45 | RAD ---
HISTORYCP, hypertension, CHF, heart catheterizationSTUDYCHEST, PA/LAT ADULTCOMPARISONJanuary 2019FINDINGSThe trachea is midline. The cardiac silhouette is markedly enlarged but stable in size compared to the last study of 07 May 2019. The lungs are clear without focal infiltrate or effusion. The bony thorax is unremarkable. When compared to the recent film of May 07, 2019 there is no interval change.IMPRESSIONStable marked cardiomegaly but no acute pulmonary abnormality.Electronically signed by: SABA COLE (May 09, 2019 11:43:45)
[2019-05-09] MEDS: NEURONTIN CAP 300 MG PO PRN ×2 (14:19→20:35)
[2019-05-09] MEDS: CATAPRES TAB 0.1 MG PO PRN ×2 (14:19→20:34)
--- NOTE | 2019-05-09 17:44 | PCM.PROG ---
Progress Note - Progress Note for Day of Date of Exam: 05/09/19 - Subjective Subjective: PT IS 30 BM ER ADMISSION AFTER PRESENTING WITH CO CHEST PAIN AND LOWER EXTREMITY SWELLING, INCREASED SOB. PT WAS RECENTLY DIAGNOSED WITH NON ISCHEMIC CARDIOMYOPATHY. PT HAS BEEN UNDER THE CARE OF [facility] CARDIOLOG[facility]. PT HAD HEART CATH LAST MONTH AND WAS STARTED ON ENTRESTO ALONG WITH DIURETICS AND BB FOR MEDICATION MANAGEMENT OF HEART FAILURE. PT REPORTS HE HAS HAD LIFE VEST WHICH HE REMOVED PRIOR TO ER ARRIVAL. PT HAS HAD CONTINUOUS CARDIAC MONITORING AND SUPPLEMENTAL O2 WITH STRICT I &OS, NO EFFUSION ON CHEST XRAY. PO2 75 ON BLOOD GAS. PT REPORTS HE IS FEELING BETTER THAN ON ADMISSION, DENIES ANY CHEST PAIN THIS AM. ENTRESTO WAS INCREASED YESTERDAY WITH BP 177/108 THIS AM PRIOR TO MEDICATION PASS. PT HAD REPEAT CE WITH IMPROVING CPK, EKG WITH NSR, DENIES CHEST PAIN. PT HAD +1 BILATERAL LOWER EXTREMITY EDEMA, WILL GIVE IV LASIX TODAY. INSTRUCTED PT TO WEAR LIFEVEST ORDERED PER CARDIOLOGY. - Past Medical Family Social History Past Med/Fam/Surg Hx: No changes since H&P Allergies: Allergies orange Allergy (Verified 05/05/19 20:49) - Review of Systems ROS: No change since H&P - Vital Signs and I&O's Vital Signs: Temperature 98.3 F Pulse Rate [Left Brachial] 83 Pulse Rate [Apical] 92 Pulse Rate 101 Respiratory Rate 20 Blood Pressure [Left Arm] 138/100 Blood Pressure [Right Arm] 119/78 Blood Pressure 168/118 O2 Sat by Pulse Oximetry 100 Intake and Output: Intake & Output 05/07/19 05/08/19 05/09/19 05/10/19 11:59 11:59 11:59 11:59 Intake Total 2690 / 2690 1160 / 1160 2280 / 2280 720 / 720 Output Total 450 / 450 1000 / 1000 850 / 850 3 / 3 Balance 2240 / 2240 160 / 160 1430 / 1430 717 / 717 - Physical Exam Oriented: Normal Eyes: Normal Ear: Normal Nose: Normal Throat: Normal Respiratory: Diminished Cardiovascular: Normal, Edema : Normal Auscultation: Bowel Sounds: Normal Tenderness: Normal Skin: Normal Psychiatric: Anxiety Affect: Anxious Speech Pattern: Clear, Appropriate - Laboratory and Diagnostics Result Diagrams: 05/09/19 05:40 05/09/19 05:40 Labs: Laboratory WBC 6.7 X10^3/uL (3.6-10.0) 05/09/19 05:40 RBC 4.95 X10^6/uL (4.7-6.0) 05/09/19 05:40 Hgb 10.7 g/dL (13.5-18.0) L 05/09/19 05:40 Hct 35.0 % (42.0-54.0) L 05/09/19 05:40 MCV 70.8 fL (80.0-100.0) L 05/09/19 05:40 MCH 21.7 pg (27.0-34.0) L 05/09/19 05:40 MCHC 30.6 g/dL (33.0-35.0) L 05/09/19 05:40 RDW 16.2 % (11.6-16.5) 05/09/19 05:40 Plt Count 165 X10^3/uL (150.0-450.0) 05/09/19 05:40 Plt Count Comment Adequate (ADEQUATE) 05/09/19 05:40 MPV 7.0 fL (7.4-11.0) L 05/09/19 05:40 Neut % (Auto) 56.0 % (42.0-75.0) 05/09/19 05:40 Lymph % (Auto) 28.6 % (21.0-51.0) 05/09/19 05:40 [place] % (Auto) 12.4 % (0.0-13.0) 05/09/19 05:40 Eos % (Auto) 2.3 % (0.9-2.9) 05/09/19 05:40 Baso % (Auto) 0.7 % (0.2-1.0) 05/09/19 05:40 Neut # (Auto) 3.8 x10^3/uL (2.2-4.8) 05/09/19 05:40 Lymph # (Auto) 1.9 X10^3/uL (1.3-2.9) 05/09/19 05:40 [place] # (Auto) 0.8 x10^3/uL (0.3-0.8) 05/09/19 05:40 Eos # (Auto) 0.2 x10^3/uL (0.0-0.2) 05/09/19 05:40 Baso # (Auto) 0.0 X10^3/uL (0.0-0.1) 05/09/19 05:40 Absolute Nucleated RBC 0.2 /100WBC 05/09/19 05:40 Plt Clumps, EDTA Few 05/09/19 05:40 Plt Morphology Comment Normal (NORMAL) 05/09/19 05:40 RBC Morphology Normal (NORMAL) 05/09/19 05:40 Hypochromasia 2+ A 05/08/19 04:15 Poikilocytosis Slight A 05/07/19 05:57 Microcytosis Slight A 05/08/19 04:15 Target Cells Slight A 05/08/19 04:15 Sample Site Lr 05/05/19 21:31 ABG pH 7.410 (7.35-7.45) 05/05/19 21:31 ABG pCO2 40.0 mmHg (35.0-45.0) 05/05/19 21:31 ABG pO2 75.0 mmHg (80.0-100.0) L 05/05/19 21:31 ABG HCO3 25.4 mmol/L (22-26) 05/05/19 21:31 ABG O2 Saturation 95.0 % (90-100) 05/05/19 21:31 ABG Base Excess 0.7 mmol/L (-2.0-2.0) 05/05/19 21:31 Derick Test Pos 05/05/19 21:31 A-a Gradient 25.0 mmHg 05/05/19 21:31 FiO2 21.0 05/05/19 21:31 Blood Gas Comments Pantera well ae 05/05/19 21:31 Sodium 137 mmol/L (136-145) 05/09/19 05:40 Corrected Sodium TNP 05/09/19 05:40 Potassium 4.7 mmol/L (3.5-5.1) 05/09/19 05:40 Chloride 104 mmol/L (98-107) 05/09/19 05:40 Carbon Dioxide 25.5 mmol/L (21-32) 05/09/19 05:40 BUN 17 mg/dL (7-18) 05/09/19 05:40 Creatinine 1.18 mg/dL (0.70-1.30) 05/09/19 05:40 Est GFR (MDRD) Af Amer > 60 (>60) 05/09/19 05:40 Est GFR (MDRD) Non-Af > 60 (>60) 05/09/19 05:40 Glucose 101 mg/dL (65-99) H 05/09/19 05:40 Calcium 8.0 mg/dL (8.5-10.1) L 05/09/19 05:40 Corrected Calcium 8.9 mg/dL (8.5-10.1) 05/09/19 05:40 Total Bilirubin 0.40 mg/dL (0.2-1.0) 05/09/19 05:40 AST 65 Units/L (15-37) H 05/09/19 05:40 ALT 290 Units/L (12-78) H 05/09/19 05:40 Alkaline Phosphatase 83 Units/L (46-116) 05/09/19 05:40 Creatine Kinase 324 Units/L (39-308) H 05/09/19 10:20 CK-MB (CK-2) 1.5 ng/mL (0-4.0) 05/09/19 10:20 CK/CKMB % Calc 0.5 % (<4) 05/09/19 10:20 Troponin I 0.45 ng/mL (0-1.5) 05/09/19 10:20 B-Natriuretic Peptide 1520 pg/mL (0-79) H* 05/05/19 21:42 Total Protein 7.4 g/dL (6.4-8.2) 05/09/19 05:40 Albumin 2.9 g/dL (3.4-5.0) L 05/09/19 05:40 Globulin 4.5 g/dL (2.5-4.5) 05/09/19 05:40 Albumin/Globulin Ratio 0.6 Ratio (1.1-2.1) L 05/09/19 05:40 Triglycerides 79 mg/dL (0-150) 05/07/19 05:57 Cholesterol 144 mg/dL (0-200) 05/07/19 05:57 LDL Cholesterol, Calc 102 mg/dL (0-100) H 05/07/19 05:57 HDL Cholesterol 26 mg/dL (40-60) L 05/07/19 05:57 Cholesterol/HDL Ratio 5.5 (0.0-5.0) H 05/07/19 05:57 - Plan (1) Non-ischemic cardiomyopathy Status: Acute Plan: BP CONTROL, CONTINOUS CARDIAC MONITORING. REPEAT CE AND EKG. INCREASED ENTRESTO. STRICT I&OS. REPEAT CXR, SUPPLEMENTAL O2. NEED OVERNIGHT PULSE OX, RECOMMEND OUTPT SLEEP STUDY (2) Chest pain Status: Acute Plan: SERIAL EKGS AND CE. BP CONTROL, CONTINUOUS CARDIAC MONITORING. SUPPLEMENTAL O2. VERIFY HOME MEDICATION. OBTAIN LAST CATH REPORT. CXR ON ADMISSION, STRICT I & OS (3) Hypertension, uncontrolled Status: Acute (4) CHF (congestive heart failure) Status: Acute (5) Dilated cardiomyopathy Status: Acute (6) Abnormal cardiac enzyme level Status: Acute
[2019-05-09] MEDS: LASIX IVP SCH ×2 (18:22→20:36)
[2019-05-10] MEDS: LASIX IVP SCH ×2 (01:30→09:17)
[2019-05-10] MEDS: APRESOLINE TAB 25 MG PO SCH ×2 (05:44→14:42)
[2019-05-10 06:48] LABS: BASOPHILS # (AUTO) 0.1 X10^3/uL (0.0-0.1); BASOPHILS % (AUTO) 1.2 % (0.2-1.0); EOSINOPHILS # (AUTO) 0.1 x10^3/uL (0.0-0.2); EOSINOPHILS % (AUTO) 1.7 % (0.9-2.9); HEMATOCRIT 34.9 % (42.0-54.0); HEMOGLOBIN 10.6 g/dL (13.5-18.0); LYMPHOCYTES # (AUTO) 1.5 X10^3/uL (1.3-2.9); LYMPHOCYTES % (AUTO) 26.1 % (21.0-51.0); MEAN CORPUSCULAR HEMOGLOBIN 21.4 pg (27.0-34.0); MEAN CORPUSCULAR HGB CONC 30.2 g/dL (33.0-35.0); MEAN CORPUSCULAR VOLUME 70.8 fL (80.0-100.0); MEAN PLATELET VOLUME 7.6 fL (7.4-11.0); MONOCYTES # (AUTO) 0.9 x10^3/uL (0.3-0.8); MONOCYTES % (AUTO) 15.1 % (0.0-13.0); NEUTROPHILS # (AUTO) 3.3 x10^3/uL (2.2-4.8); NEUTROPHILS % (AUTO) 55.9 % (42.0-75.0); PLATELET COUNT 287 X10^3/uL (150.0-450.0); RED BLOOD COUNT 4.94 X10^6/uL (4.7-6.0); RED CELL DISTRIBUTION WIDTH 16.4 % (11.6-16.5); WHITE BLOOD COUNT 5.9 X10^3/uL (3.6-10.0)
[2019-05-10 06:49] LABS: ALANINE AMINOTRANSFERASE 234 Units/L (12-78); ALBUMIN 2.9 g/dL (3.4-5.0); ALKALINE PHOSPHATASE 79 Units/L (46-116); ASPARTATE AMINO TRANSFERASE 44 Units/L (15-37); BLOOD UREA NITROGEN 19 mg/dL (7-18); CALCIUM 7.9 mg/dL (8.5-10.1); CARBON DIOXIDE 24.4 mmol/L (21-32); CHLORIDE 102 mmol/L (98-107); COR CA(FOR HYPOALB) 8.8 mg/dL (8.5-10.1); COR NA(FOR HYPERGLY) 138 mmol/L (136-145); CREATININE 1.09 mg/dL (0.70-1.30); SODIUM 137 mmol/L (136-145); TOTAL PROTEIN 7.4 g/dL (6.4-8.2); eGFR NON BLACK RACES > 60 (>60)
[2019-05-10 07:36] LABS: HYPOCHROMASIA 1+; PLATELET MORPHOLOGY COMMENT NORMAL (NORMAL)
[2019-05-10] MEDS: COREG TAB 25 MG PO SCH (09:16)
[2019-05-10] MEDS: ENTRESTO 24/26 MG TAB PO SCH (09:17)
[2019-05-10] MEDS: CATAPRES TAB 0.1 MG PO PRN (09:17)
[2019-05-10] MEDS: ALDACTONE TAB 25 MG PO SCH (09:17)
[2019-05-10] MEDS: IMDUR PO SCH (09:17)
--- NOTE | 2019-05-10 10:35 | VAS ---
HISTORY:Bilateral lower extremity edemaStudy: Venous DopplerComparison:NoneTECHNIQUE: Multiple disla scale and color flow Doppler images of the deep venous system were obtained of the bilateral lower extremitiesFINDINGS:There is normal respiratory phasicity, compression and augmentation of the extremity veins without evidence of acute DVT .IMPRESSION:1. Negative for DVT.Electronically signed by: SYEDA JEAN (May 10, 2019 10:34:11)
[2019-05-10 14:01] VITALS: BP 158/96
== END 2019-05-10 15:20 | disposition home or self-care (01) ==
LOC: ER 20:40 → OBS 20:40 → MED/SURG 05-07 15:17
PROVIDERS: ADMIT Family Medicine; ATTEND Family Medicine
DX: R60.0 Localized edema; I11.0 Hypertensive heart disease with heart failure; I50.9 Heart failure, unspecified; E78.49 Other hyperlipidemia; R94.4 Abnormal results of kidney function studies; R07.89 Other chest pain; I42.0 Dilated cardiomyopathy; R94.31 Abnormal electrocardiogram [ECG] [EKG]; R74.0 Nonspecific elevation of levels of transaminase and lactic acid dehydrogenase [LDH]; R26.89 Other abnormalities of gait and mobility; D64.89 Other specified anemias; R06.02 Shortness of breath
CPT/HCPCS: 36415; 36600; 71010; 71020; 71045; 71046; 80053; 80061; 82550; 82553; 82803; 83880; 84484; 85025; 93005; 93970; 94760; 94762; 96365; 96374; 96375; 99284; A4216; A4222; G0378; J1885; J1940

== ENCOUNTER 2023-03-03 17:16 | Inpatient (IN) ==
--- NOTE | 2023-03-03 17:30 | DR.URIAD ---
HPI Time Seen Time Seen by Provider: 03/03/23 17:29 Complaint Chief Complaint Doctors Comments: 32-year-old male presents for evaluation. Has been ill over the past 4 days. Having a moist cough, productive of phlegm. Having worsening shortness of breath, worse with exertion. Has a history of CHF, has been taking his medications. No swelling of his lower extremities. Has been having chills, has a fever here. Has had some nasal congestion. Denies bowel or bladder issues. Reviewed Nurses Notes Reviewed: Yes Source History Provided: Patient PMH PMH Past Medical History: Anemia, CHF, Dyslipidemia and Hypertension Past Surgical History: No Surgical History: Other Family History Family Medical History: Diabetes Mellitus, [place], Coronary Artery Disease and Hypertension Social History Does patient currently use any type of tobacco product: No Alcohol Use: None Do you use any recreational Drugs:: No ROS Review of Systems Constitutional: Chills, Fever and Weakness Eyes: No Symptoms Reported ENTM: Nose Congestion Respiratoy: Moist Cough Cardiovascular: No Symptoms Reported Gastrointestinal/Abdominal: No Symptoms Reported Genitourinary: No Symptoms Reported Neurological: Weakness Musculoskeletal: No Symptoms Reported Integumentary: No Symptoms Reported All Other Systems: Reviewed and Negative PE Vital Signs Vitals: Vital Signs Temperature 100.7 F Pulse Rate 88 Pulse Rate 84 Pulse Rate 85 Pulse Rate 84 Pulse Rate 85 Pulse Rate 85 Pulse Rate 88 Pulse Rate 88 Respiratory Rate 30 Respiratory Rate 33 Respiratory Rate 30 Respiratory Rate 35 Respiratory Rate 34 Respiratory Rate 43 Respiratory Rate 43 Respiratory Rate 22 Blood Pressure 127/76 Blood Pressure 115/78 Blood Pressure 113/69 Blood Pressure 120/81 O2 Sat by Pulse Oximetry 100 O2 Sat by Pulse Oximetry 100 O2 Sat by Pulse Oximetry 99 O2 Sat by Pulse Oximetry 100 O2 Sat by Pulse Oximetry 100 O2 Sat by Pulse Oximetry 100 O2 Sat by Pulse Oximetry 99 O2 Sat by Pulse Oximetry 82 General General Appearance: Alert and In Distress (pulse ox in 80's on RA. ) Eyes Eye exam: PERRL and EOMI ENT ENT Exam: Normal Exam, Normal Oropharynx, Mucous Membranes Moist and TM's Normal Bilaterally Neck Neck Exam: Normal Inspection and Full ROM; negative Tenderness Respiratory Respiratory Exam: Normal Lung Sounds Bilat Cardiovascular Cardiovascular Exam: Regular Rate, Normal Rhythm and Normal Heart Sounds Abdominal Exam Abdominal Exam: Normal Bowel Sounds and Soft; negative Tenderness Extremeties Extremities Exam: Normal Inspection; negative Edema Back Back Exam: Normal Inspection; negative Tenderness Neurologic Neurological Exam: Alert, Oriented X3 and CN II-XII Intact; negative Motor Sensory Deficit Skin Skin Exam: Warm and Dry COURSE Treatment Treatment: 32-year-old male ill x4 days with cough congestion. Has a fever here. Pulse ox in the 80s, better on O2 via nasal cannula. History of CHF, no apparent edema. Work-up initiated. BNP not ordered as pt on Entresto. 1930 - chest x-ray acceptable, has cardiomegaly but no obvious infiltrate. Patient is positive for RSV. Patient was significantly hypoxic on arrival to the ER, doing better on oxygen. He does not have oxygen at home. We will admit the patient for further evaluation and treatment. We will continue oxygen for the patient, give trial of steroids and DuoNeb treatments. Discussed with covering MD, Dr. Baldwin, will admit. ROR Labs Reviewed Laboratory Results Reviewed?: Yes 03/04/23 04:10 03/04/23 04:10 Laboratory: 03/03/23 17:54 Sputum - Expectorated Sputum - Final WBC 12.3 X10^3/uL (3.6-10.0) H 03/03/23 17:40 RBC 5.03 X10^6/uL (4.7-6.0) 03/03/23 17:40 Hgb 13.7 g/dL (13.5-18.0) 03/03/23 17:40 Hct 42.9 % (42.0-54.0) 03/03/23 17:40 MCV 85.2 fL (80.0-100.0) 03/03/23 17:40 MCH 27.2 pg (27.0-34.0) 03/03/23 17:40 MCHC 31.9 g/dL (33.0-35.0) L 03/03/23 17:40 RDW 13.9 % (11.6-16.5) 03/03/23 17:40 Plt Count 269 X10^3/uL (150.0-450.0) 03/03/23 17:40 MPV 8.3 fL (7.4-11.0) 03/03/23 17:40 Neut % (Auto) 82.3 % (42.0-75.0) H 03/03/23 17:40 Lymph % (Auto) 6.6 % (21.0-51.0) L 03/03/23 17:40 [place] % (Auto) 10.6 % (0.0-13.0) 03/03/23 17:40 Eos % (Auto) 0.1 % (0.9-2.9) L 03/03/23 17:40 Baso % (Auto) 0.4 % (0.2-1.0) 03/03/23 17:40 Neut # (Auto) 10.1 x10^3/uL (2.2-4.8) H 03/03/23 17:40 Lymph # (Auto) 0.8 X10^3/uL (1.3-2.9) L 03/03/23 17:40 [place] # (Auto) 1.3 x10^3/uL (0.3-0.8) H 03/03/23 17:40 Eos # (Auto) 0.0 x10^3/uL (0.0-0.2) 03/03/23 17:40 Baso # (Auto) 0.0 X10^3/uL (0.0-0.1) 03/03/23 17:40 Absolute Nucleated RBC 0.1 /100WBC 03/03/23 17:40 Sodium 134 mmol/L (136-145) L 03/03/23 17:40 Corrected Sodium 135 mmol/L (136-145) L 03/03/23 17:40 Potassium 4.1 mmol/L (3.5-5.1) 03/03/23 17:40 Chloride 94 mmol/L (98-107) L 03/03/23 17:40 Carbon Dioxide 34.5 mmol/L (21-32) H 03/03/23 17:40 BUN 22 mg/dL (7-18) H 03/03/23 17:40 Creatinine 1.43 mg/dL (0.70-1.30) H 03/03/23 17:40 Est GFR (MDRD) Af Amer > 60 (>60) 03/03/23 17:40 Est GFR (MDRD) Non-Af > 60 (>60) 03/03/23 17:40 Glucose 133 mg/dL (65-99) H 03/03/23 17:40 Lactic Acid 1.9 mmol/L (0.4-2.0) 03/03/23 17:40 Calcium 7.9 mg/dL (8.5-10.1) L 03/03/23 17:40 Corrected Calcium TNP 03/03/23 17:40 Total Bilirubin 1.40 mg/dL (0.2-1.0) H 03/03/23 17:40 AST 32 Units/L (15-37) 03/03/23 17:40 ALT 38 Units/L (12-78) 03/03/23 17:40 Alkaline Phosphatase 67 Units/L (46-116) 03/03/23 17:40 Total Protein 8.3 g/dL (6.4-8.2) H 03/03/23 17:40 Albumin 3.8 g/dL (3.4-5.0) 03/03/23 17:40 Globulin 4.5 g/dL (2.5-4.5) 03/03/23 17:40 Albumin/Globulin Ratio 0.8 Ratio (1.1-2.1) L 03/03/23 17:40 Lipase 17 Units/L (16-77) 03/03/23 17:40 SARS-CoV-2 (PCR) Negative (NEGATIVE) 03/03/23 17:48 Influenza Type A (PCR) Negative (NEGATIVE) 03/03/23 17:48 Influenza Type B (PCR) Negative (NEGATIVE) 03/03/23 17:48 RSV (PCR) Positive (NEGATIVE) A 03/03/23 17:48 Labs acceptable. + RSV XRAY XRAY Interpreted by: Both X-ray Results: + cardiomegaly. EKG Rate: 85 [place]: LAD Rhythm: NSR Block: [address]: Nonsp (wandering baseline with artifact) Opioid Opioid Risk Tool Age ([place] box if 16-45): No History of Preadolescent Sexual Abuse: No Total: 0 Total Score Risk Category: Low Risk Copyright: Jose R ROBERTS predicting aberrant behaviors Discharge Plan Diagnosis Discharge Problem: Hypoxia, RSV infection Discharge Plan Patient Disposition: 09 ADMITTED INPATIENT Condition: Stable
[2023-03-03] MEDS ORDERED: APRESOLINE INJ 20 MG VIAL IVP ONE (17:36)
--- NOTE | 2023-03-03 17:38 | EKG ---
Test Reason : sob Blood Pressure : */* mmHG Vent. Rate : 85 BPM Atrial Rate : 85 BPM P-R Int : 288 ms QRS Dur : 194 ms QT Int : 620 ms P-R-T Axes : 40 -53 43 degrees QTc Int : 737 ms Sinus rhythm with 1st degree AV block with premature atrial complexes with aberrant conduction Left axis deviation Left bundle branch block Abnormal ECG No previous ECGs available Confirmed by Camacho Smith ([id number]) on 03/04/2023 8:14:26 AM Referred By: Confirmed By: Camacho Smith
[2023-03-03 18:06] LABS: BASOPHILS % (AUTO) 0.4 % (0.2-1.0); EOSINOPHILS % (AUTO) 0.1 % (0.9-2.9); HEMATOCRIT 42.9 % (42.0-54.0); HEMOGLOBIN 13.7 g/dL (13.5-18.0); LYMPHOCYTES # (AUTO) 0.8 X10^3/uL (1.3-2.9); LYMPHOCYTES % (AUTO) 6.6 % (21.0-51.0); MEAN CORPUSCULAR HEMOGLOBIN 27.2 pg (27.0-34.0); MEAN CORPUSCULAR HGB CONC 31.9 g/dL (33.0-35.0); MEAN CORPUSCULAR VOLUME 85.2 fL (80.0-100.0); MEAN PLATELET VOLUME 8.3 fL (7.4-11.0); MONOCYTES # (AUTO) 1.3 x10^3/uL (0.3-0.8); MONOCYTES % (AUTO) 10.6 % (0.0-13.0); NEUTROPHILS # (AUTO) 10.1 x10^3/uL (2.2-4.8); NEUTROPHILS % (AUTO) 82.3 % (42.0-75.0); PLATELET COUNT 269 X10^3/uL (150.0-450.0); RED BLOOD COUNT 5.03 X10^6/uL (4.7-6.0); RED CELL DISTRIBUTION WIDTH 13.9 % (11.6-16.5); WHITE BLOOD COUNT 12.3 X10^3/uL (3.6-10.0)
--- NOTE | 2023-03-03 18:13 | RAD ---
EXAM:CHEST, 1 VIEWHISTORY:PACE MAKER; FEVER, COUGH, SOB UnavailableCOMPARISON:None.FINDINGS:The trachea is midline. The cardiac silhouette is enlarged and there is a left-sided pacing device noted in place.. The lungs are clear without focal infiltrate or effusion. The bony thorax is unremarkable.IMPRESSION:No acute cardiopulmonary disease.THIS IS AN ELECTRONICALLY VERIFIED FINAL [id number]/03/2023 6:09 PM - Electronically signed by Pedro Villatoro MD
[2023-03-03 18:32] LABS: ALANINE AMINOTRANSFERASE 38 Units/L (12-78); ALBUMIN 3.8 g/dL (3.4-5.0); ALKALINE PHOSPHATASE 67 Units/L (46-116); ASPARTATE AMINO TRANSFERASE 32 Units/L (15-37); BLOOD UREA NITROGEN 22 mg/dL (7-18); CALCIUM 7.9 mg/dL (8.5-10.1); CARBON DIOXIDE 34.5 mmol/L (21-32); CHLORIDE 94 mmol/L (98-107); COR NA(FOR HYPERGLY) 135 mmol/L (136-145); CREATININE 1.43 mg/dL (0.70-1.30); GLUCOSE 133 mg/dL (65-99); LIPASE 17 Units/L (16-77); POTASSIUM 4.1 mmol/L (3.5-5.1); SODIUM 134 mmol/L (136-145); TOTAL PROTEIN 8.3 g/dL (6.4-8.2); eGFR NON BLACK RACES > 60 (>60)
[2023-03-03] MEDS ORDERED: ROCEPHIN VIAL 1 GRAM IVP STA (19:26)
[2023-03-03] MEDS ORDERED: ROCEPHIN VIAL 1 GRAM ONE (19:32)
[2023-03-03] MEDS ORDERED: DUONEB 0.5 MG/3 MG (3 mL) NEB ONE ×2 (19:38→19:45)
[2023-03-03] MEDS ORDERED: SOLU-Medrol 125 MG VIAL IVP ONE (19:38)
[2023-03-03] MEDS ORDERED: SOLU-Medrol 125 MG VIAL ONE (19:49)
[2023-03-03] MEDS: COREG TAB 12.5 MG PO SCH (21:48)
[2023-03-03] MEDS: ENTRESTO 49/51 MG TABLET PO SCH (21:49)
[2023-03-03] MEDS: LIPITOR TAB 20 MG PO SCH (21:49)
[2023-03-03] MEDS ORDERED: DUONEB 0.5 MG/3 MG (3 mL) NEB SCH (22:00)
[2023-03-04] MEDS: SOLU-Medrol 40 MG VIAL IVP SCH ×3 (05:29→21:45)
[2023-03-04 05:31] LABS: BASOPHILS % (AUTO) 0.2 % (0.2-1.0); HEMATOCRIT 41.6 % (42.0-54.0); HEMOGLOBIN 13.4 g/dL (13.5-18.0); LYMPHOCYTES # (AUTO) 1.1 X10^3/uL (1.3-2.9); LYMPHOCYTES % (AUTO) 6.5 % (21.0-51.0); MEAN CORPUSCULAR HEMOGLOBIN 27.7 pg (27.0-34.0); MEAN CORPUSCULAR HGB CONC 32.3 g/dL (33.0-35.0); MEAN CORPUSCULAR VOLUME 85.7 fL (80.0-100.0); MEAN PLATELET VOLUME 8.3 fL (7.4-11.0); MONOCYTES # (AUTO) 0.6 x10^3/uL (0.3-0.8); MONOCYTES % (AUTO) 3.4 % (0.0-13.0); NEUTROPHILS # (AUTO) 15.4 x10^3/uL (2.2-4.8); NEUTROPHILS % (AUTO) 89.9 % (42.0-75.0); PLATELET COUNT 235 X10^3/uL (150.0-450.0); RED BLOOD COUNT 4.86 X10^6/uL (4.7-6.0); RED CELL DISTRIBUTION WIDTH 14.1 % (11.6-16.5); WHITE BLOOD COUNT 17.1 X10^3/uL (3.6-10.0)
--- NOTE | 2023-03-04 05:31 | RAD ---
PROCEDURE: Chest X-ray 1 View .HISTORY: Hypoxia and respiratory syncytial virus.TECHNIQUE: AP portable done at 4:47 a.m..COMPARISON: 03/03/2023.TECHNICAL QUALITY: Satisfactory .FINDINGS:Unchanged moderately severe cardiomegaly.Mediastinum and hilar regions show no masses or lymphadenopathy .Increased central vascularity compared to previous study.No pulmonary consolidation, masses, pleural fluid, or pneumothorax .No acute bony abnormality .IMPRESSION:Unchanged moderately severe cardiomegaly with interval increased central vascularity.Electronically signed by: Neri Pascal (Mar 04, 2023 05:30:01)
[2023-03-04 05:33] LABS: ALANINE AMINOTRANSFERASE 32 Units/L (12-78); ALBUMIN 3.4 g/dL (3.4-5.0); ALKALINE PHOSPHATASE 64 Units/L (46-116); ASPARTATE AMINO TRANSFERASE 29 Units/L (15-37); BLOOD UREA NITROGEN 22 mg/dL (7-18); CALCIUM 7.7 mg/dL (8.5-10.1); CARBON DIOXIDE 33.6 mmol/L (21-32); CHLORIDE 94 mmol/L (98-107); COR NA(FOR HYPERGLY) 135 mmol/L (136-145); CREATININE 1.32 mg/dL (0.70-1.30); GLUCOSE 133 mg/dL (65-99); POTASSIUM 4.1 mmol/L (3.5-5.1); SODIUM 134 mmol/L (136-145); eGFR NON BLACK RACES > 60 (>60)
[2023-03-04] MEDS: PULMICORT NEB TX 0.5 MG NEB SCH ×2 (08:43→21:50)
[2023-03-04] MEDS ORDERED: DUONEB 0.5 MG/3 MG (3 mL) NEB SCH ×2 (09:00)
[2023-03-04] MEDS ORDERED: PULMICORT NEB TX 0.5 MG NEB SCH (09:00)
[2023-03-04] MEDS: COREG TAB 12.5 MG PO SCH ×2 (09:32→21:44)
[2023-03-04] MEDS: ENTRESTO 49/51 MG TABLET PO SCH (09:46)
[2023-03-04] MEDS: ROCEPHIN VIAL 1 GRAM 1 G in NS 100 ML IV 100 ML IV SCH (09:57)
[2023-03-04] MEDS: ALDACTONE TAB 25 MG PO SCH (09:58)
[2023-03-04] MEDS: FARXIGA PO SCH ×2 (09:58→15:48)
[2023-03-04] MEDS: IMDUR PO SCH (09:58)
[2023-03-04] MEDS: BUMEX TAB 1 MG PO SCH (09:58)
--- NOTE | 2023-03-04 12:17 | DR.H&P ---
H&P - History & Physical for Day of: H&P Date: 03/03/23 - Chief Complaint Chief Complaint: COUGH, SOB, FEVER - History of Present Illness History of Present Illness: IS A 32 YEAR OLD BLACK MALE. HE HAS A PMH OF ANEMIA, CHF, DYSLIPIDEMIA, HTN, OBESITY. PATIENT REPORTS THAT HE RECENTLY MOVED TO THE AREA AND DOES NOT HAVE A LOCAL PRIMARY CARE PHYSICIAN OR CHILDCARE TEACHER. ON ARRIVAL, HE COMPLAINED OF FEVER, CHILLS, PRODUCTIVE COUGH, AND SHORTNESS OF BREATH. HE REPORTS THAT SHORTNESS OF BREATH IS WORSE ON EXERTION. HE ADMITS TO COMPLIANCE WITH HIS CHF MEDICATIONS. PATIENT REPORTS THAT HIS SYMPTOMS STARTED 4-5 DAYS AGO AND HAVE PROGRESSIVELY GOTTEN WORSE. HE DOES ADMIT TO SOME NASAL CONGESTION, BUT DENIES BOWEL OR BLADDER ISSUES. ON ARRIVAL TO THE HOSPITAL, HIS VITALS WERE: 100.7-88-20-82%-120/81. HE WAS PLACED ON OXYGEN VIA NASAL CANNULA AT 2 LPM. SATURATIONS INCREASED TO 99%. LABS WERE OBTAINED. WBC 12.3, RBC 5.03, HGB 13.7, HCT 42.9, PLT COUNT 269, SODIUM 134, POTASSIUM 4.1, CHLORIDE 94, BUN 22, CREATININE 1.43, GLUCOSE 133, CALCIUM 7.9, TOTAL BILI 1.40, AST 32, ALT 38, ALK PHOS 67, TOTAL PROTEIN 8.3, LIPASE 17. COVID AND INFLUENZA WERE NEGATIVE. RSV POSITIVE. BLOOD AND SPUTUM CULTURES WERE SET UP. A RESPIRATORY VIRAL PANEL WAS ALSO SET UP. EKG WAS OBTAINED AND REVEALED: SINUS RHYTHM WITH 1ST DEGREE AV BLOCK WITH PREMATURE ATRIAL COMPLEXES WITH ABBERANT CONDUCTION. HR 85 BPM. IN THE ER, HE WAS GIVEN ROCEPHIN 1G IV X 1, DUONEBS X 1, SOLU-MEDROL 125MG IV X 1. HE WAS ADMITTED TO THE HOSPITAL INPATIENT STATUS FOR FURTHER EVALUATION AND TREATMENT OF RSV, ACUTE BRONCHITIS, HYPOXIA, AND CHF. HE WAS STARTED ON ROCEPHIN 1G IV DAILY, DUONEBS TID, PULMICORT NEBS BID, SOLU-MEDROL 40MG IV Q8H. HIS HOME MEDICATIONS OF LIPITOR, BUMEX, COREG, IMDUR, AND ALDACTONE WERE RESUMED. WE DID RESTART THE COREG AT 12.5MG INSTEAD OF 25MG. WE WILL HOLD THE ENTRESTO FOR NOW. WE WILL CONSULT , CHILDCARE TEACHER, FOR EVALUATION OF PATIENT. WE WILL OBTAIN AN ECHOCARDIOGRAM. OTHERWISE, WE WILL FOLLOW UP WITH AM LABS AND CONTINUE TO MONITOR. TIME SPENT ON CLINICAL ASSESSMENT, REVIEWING LABS AND IMAGING, DECISION MAKING, AND DOCUMENTATION GREATER THAN 75 MINUTES. - Past Medical History Past Medical History: Hypertension, Dyslipidemia, Anemia, CHF - Past Surgical History Surgical History: Other - Family History Family Medical History: Diabetes Mellitus, Cancer, Hypertension - Social History Does patient currently use any type of tobacco product: No Have you used tobacco products in the last 12 months: No Type of Tobacco Use: THC Does any household member use tobacco: No Alcohol Use: None Drug Use: Marijuana - Review of Systems Constitutional: Fever, Chills, Weakness Eyes: No Symptoms Reported ENT: No Symptoms Reported Respiratory: Cough, Shortness of Breath, SOB with Excertion, Wheezing Cardiovascular: No Symptoms Reported Gastrointestinal: No Symptoms Reported Genitourinary: No Symptoms Reported Musculoskeletal: No Symptoms Reported Skin: No Symptoms Reported Neurological: Weakness - Physical Exam Vital Signs: Vital Signs Temperature 97.8 F Pulse Rate 63 Pulse Rate 68 Pulse Rate 63 Pulse Rate 57 Pulse Rate 62 Pulse Rate 67 Pulse Rate 69 Pulse Rate 74 Pulse Rate 76 Pulse Rate 67 Pulse Rate 70 Pulse Rate 66 Pulse Rate 61 Pulse Rate 61 Pulse Rate 63 Pulse Rate 67 Pulse Rate 63 Pulse Rate 64 Pulse Rate 65 Pulse Rate 65 Pulse Rate 67 Pulse Rate 68 Respiratory Rate 21 Respiratory Rate 25 Respiratory Rate 17 Respiratory Rate 20 Respiratory Rate 23 Respiratory Rate 20 Respiratory Rate 36 Respiratory Rate 46 Respiratory Rate 26 Respiratory Rate 24 Respiratory Rate 22 Respiratory Rate 20 Respiratory Rate 20 Respiratory Rate 20 Respiratory Rate 23 Respiratory Rate 28 Respiratory Rate 24 Respiratory Rate 23 Respiratory Rate 30 Respiratory Rate 22 Respiratory Rate 31 Blood Pressure 107/67 Blood Pressure 104/74 Blood Pressure 97/57 Blood Pressure 97/55 O2 Sat by Pulse Oximetry 97 O2 Sat by Pulse Oximetry 99 O2 Sat by Pulse Oximetry 94 O2 Sat by Pulse Oximetry 94 O2 Sat by Pulse Oximetry 95 O2 Sat by Pulse Oximetry 96 O2 Sat by Pulse Oximetry 94 O2 Sat by Pulse Oximetry 98 O2 Sat by Pulse Oximetry 93 O2 Sat by Pulse Oximetry 98 O2 Sat by Pulse Oximetry 97 O2 Sat by Pulse Oximetry 99 O2 Sat by Pulse Oximetry 96 O2 Sat by Pulse Oximetry 94 O2 Sat by Pulse Oximetry 96 O2 Sat by Pulse Oximetry 95 O2 Sat by Pulse Oximetry 95 O2 Sat by Pulse Oximetry 98 O2 Sat by Pulse Oximetry 96 O2 Sat by Pulse Oximetry 96 O2 Sat by Pulse Oximetry 97 O2 Sat by Pulse Oximetry 98 Oriented: Normal Eyes: Normal Ear: Normal Nose: Normal Throat: Normal Respiratory: Wheezes Throughout Cardiovascular: Normal : Normal Auscultation: Bowel Sounds: Normal Palpation: Normal Tenderness: Normal Skin: Normal Musculoskeletal: Normal Psychiatric: Normal Mood Description: Calm Affect: Normal Speech Pattern: Clear - Assessment/Plan (1) RSV infection Status: Acute Plan: ADMIT, SUPPLEMENTAL OXYGEN, ROCEPHIN 1G IV DAILY, DUONEBS TID, PULMICORT NEBS BID, SOLU-MEDROL 40MG IV Q8H, RESUME HOME MEDS (2) Acute bronchitis Qualifiers: Bronchitis organism: unspecified organism Qualified Code(s): J20.9 - Acute bronchitis, unspecified Status: Acute (3) Hypoxia Status: Acute (4) CHF (congestive heart failure) Qualifiers: Heart failure type: unspecified Heart failure chronicity: acute on chronic Qualified Code(s): I50.9 - Heart failure, unspecified Status: Acute Plan: RESUME COREG, BUMEX, ALDACTONE (5) Morbid obesity Status: Acute (6) Hyperlipidemia Qualifiers: Hyperlipidemia type: mixed hyperlipidemia Status: Chronic Plan: RESUME LIPITOR - Allergies Allergies/Adverse Reactions: Allergies Allergy/AdvReac Type Severity Reaction Status Date / Time orange Allergy Verified 03/03/23 21:52 - Medications Home Medications: Home Medications Medication Instructions Recorded Confirmed carvedilol 12.5 mg tablet 25 mg PO BID 03/30/19 03/03/23 isosorbide mononitrate 30 mg 30 mg PO DAILY 03/30/19 03/03/23 tablet,extended release 24 hr spironolactone 25 mg tablet 25 mg PO DAILY 03/30/19 03/03/23 atorvastatin 20 mg tablet 20 mg PO QHS 06/07/19 03/03/23 bumetanide 1 mg tablet 1 mg PO 1XD 03/03/23 03/03/23 colchicine 0.5 mg tablet 0.5 mg PO 1XD 03/03/23 03/03/23 empagliflozin 25 mg tablet 25 mg PO 1XD 03/03/23 03/03/23 (Jardiance) Previous Rx's Medication Instructions Recorded sacubitril 49 mg-valsartan 51 mg 1 tab PO BID #60 tabs 05/10/19 tablet (Entresto)
[2023-03-04] MEDS: DUONEB 0.5 MG/3 MG (3 mL) NEB SCH ×2 (14:21→21:50)
[2023-03-04] MEDS: APRESOLINE TAB 10 MG PO SCH ×2 (15:30→21:45)
[2023-03-04 16:03] VITALS: BMI 55.3
[2023-03-04] MEDS ORDERED: ZOFRAN TAB 4 MG PO PRN (16:34)
[2023-03-04] MEDS: LIPITOR TAB 20 MG PO SCH (21:45)
[2023-03-05 05:34] LABS: BASOPHILS # (AUTO) 0.1 X10^3/uL (0.0-0.1); BASOPHILS % (AUTO) 0.4 % (0.2-1.0); HEMATOCRIT 41.4 % (42.0-54.0); HEMOGLOBIN 13.4 g/dL (13.5-18.0); LYMPHOCYTES % (AUTO) 5.3 % (21.0-51.0); MEAN CORPUSCULAR HEMOGLOBIN 27.5 pg (27.0-34.0); MEAN CORPUSCULAR HGB CONC 32.4 g/dL (33.0-35.0); MEAN CORPUSCULAR VOLUME 84.9 fL (80.0-100.0); MEAN PLATELET VOLUME 8.3 fL (7.4-11.0); MONOCYTES # (AUTO) 0.9 x10^3/uL (0.3-0.8); MONOCYTES % (AUTO) 4.4 % (0.0-13.0); NEUTROPHILS # (AUTO) 17.6 x10^3/uL (2.2-4.8); NEUTROPHILS % (AUTO) 89.9 % (42.0-75.0); PLATELET COUNT 245 X10^3/uL (150.0-450.0); RED BLOOD COUNT 4.88 X10^6/uL (4.7-6.0); RED CELL DISTRIBUTION WIDTH 14.4 % (11.6-16.5); WHITE BLOOD COUNT 19.7 X10^3/uL (3.6-10.0)
[2023-03-05] MEDS: SOLU-Medrol 40 MG VIAL IVP SCH ×3 (05:35→20:56)
[2023-03-05 05:49] LABS: ALANINE AMINOTRANSFERASE 28 Units/L (12-78); ALKALINE PHOSPHATASE 77 Units/L (46-116); ASPARTATE AMINO TRANSFERASE 17 Units/L (15-37); BLOOD UREA NITROGEN 23 mg/dL (7-18); CALCIUM 7.9 mg/dL (8.5-10.1); CARBON DIOXIDE 34.6 mmol/L (21-32); CHLORIDE 96 mmol/L (98-107); COR CA(FOR HYPOALB) 8.7 mg/dL (8.5-10.1); COR NA(FOR HYPERGLY) 135 mmol/L (136-145); CREATININE 1.02 mg/dL (0.70-1.30); GLUCOSE 134 mg/dL (65-99); POTASSIUM 4.1 mmol/L (3.5-5.1); SODIUM 134 mmol/L (136-145); TOTAL PROTEIN 7.4 g/dL (6.4-8.2); eGFR NON BLACK RACES > 60 (>60)
[2023-03-05] MEDS: DUONEB 0.5 MG/3 MG (3 mL) NEB SCH ×4 (06:00→21:38)
[2023-03-05] MEDS: FARXIGA PO SCH (09:00)
[2023-03-05] MEDS: ALDACTONE TAB 25 MG PO SCH (09:00)
[2023-03-05] MEDS: COREG TAB 12.5 MG PO SCH ×2 (09:00→20:54)
[2023-03-05] MEDS: ROCEPHIN VIAL 1 GRAM 1 G in NS 100 ML IV 100 ML IV SCH (09:00)
[2023-03-05] MEDS: BUMEX TAB 1 MG PO SCH (09:00)
[2023-03-05] MEDS: IMDUR PO SCH (09:00)
[2023-03-05] MEDS: PULMICORT NEB TX 0.5 MG NEB SCH ×2 (09:05→21:38)
[2023-03-05] MEDS: APRESOLINE TAB 10 MG PO SCH ×3 (14:06→22:15)
--- NOTE | 2023-03-05 17:34 | PCM.PROG ---
Progress Note Progress Note for Day of Date of Exam: 03/05/23 Subjective Subjective: PT IS 32 BM, ICU PT WITH ACUTE RESPIRATORY DISTRESS DUE TO RVS. PT HAS NON ISCHEMIC CARDIOMYOPATHY AND CHRONIC MEDICATION MANAGEMENT HAS BEEN RESUMED. PT HAD A REPEAT CHEST XRAY THIS MORNING AND BNP. RENAL FUNCTION HAS SLIGHTLY IMPROVED AND STABLE. PT IS TO HAVE A ROOM AIR ABG THIS MORNING. PT REPORTS THICK MUCOUS PRODUCTION AND VOMITING MUCOUS X1. PT DENIES ANY CHEST PAIN OR NAUSEA THIS MORNING. PT IS CURRENTLY ON IV ATBX AND SOLU MEDROL. WBC 19.7 TODAY, PLAN TO TRY TO DECREASE SOLU MEDROL TO Q 12 HRS IF TOLERATED. PT ENCOURAGED ORAL HYDRATION AND PULMONARY TOILETING WITH IS AND COUGH/DEEP BREATHING. DIAGNOSTIC TESTS AND LABS REVIEWED WITH PT THIS MORNING. Past Medical Family Social History Allergies: Allergies orange Allergy (Verified 03/03/23 21:52) Vital Signs and I&O's Vital Signs: Vital Signs Temperature 97.6 F Temperature 97.4 F Pulse Rate 63 Pulse Rate 62 Pulse Rate 64 Pulse Rate 66 Pulse Rate 64 Pulse Rate 62 Pulse Rate 74 Pulse Rate 72 Pulse Rate 64 Pulse Rate 62 Pulse Rate 66 Pulse Rate 62 Pulse Rate 64 Pulse Rate 63 Pulse Rate 62 Pulse Rate 62 Pulse Rate 63 Pulse Rate 75 Pulse Rate 65 Pulse Rate 74 Pulse Rate 63 Pulse Rate 69 Pulse Rate 56 Pulse Rate 55 Pulse Rate 56 Pulse Rate 66 Pulse Rate 57 Pulse Rate 61 Pulse Rate 66 Pulse Rate 66 Pulse Rate 65 Pulse Rate 70 Pulse Rate 68 Pulse Rate 65 Pulse Rate 65 Pulse Rate 68 Pulse Rate 64 Respiratory Rate 39 Respiratory Rate 27 Respiratory Rate 22 Respiratory Rate 24 Respiratory Rate 22 Respiratory Rate 21 Respiratory Rate 16 Respiratory Rate 33 Respiratory Rate 26 Respiratory Rate 26 Respiratory Rate 21 Respiratory Rate 29 Respiratory Rate 30 Respiratory Rate 26 Respiratory Rate 28 Respiratory Rate 20 Respiratory Rate 20 Respiratory Rate 40 Respiratory Rate 27 Respiratory Rate 27 Respiratory Rate 21 Respiratory Rate 29 Respiratory Rate 23 Respiratory Rate 22 Respiratory Rate 23 Respiratory Rate 25 Respiratory Rate 19 Respiratory Rate 21 Respiratory Rate 23 Respiratory Rate 22 Respiratory Rate 24 Respiratory Rate 24 Respiratory Rate 23 Respiratory Rate 22 Respiratory Rate 19 Respiratory Rate 18 Blood Pressure 124/64 Blood Pressure 111/59 Blood Pressure 109/57 Blood Pressure 109/71 Blood Pressure 113/67 Blood Pressure 121/56 Blood Pressure 122/61 O2 Sat by Pulse Oximetry 97 O2 Sat by Pulse Oximetry 95 O2 Sat by Pulse Oximetry 93 O2 Sat by Pulse Oximetry 96 O2 Sat by Pulse Oximetry 96 O2 Sat by Pulse Oximetry 96 O2 Sat by Pulse Oximetry 98 O2 Sat by Pulse Oximetry 95 O2 Sat by Pulse Oximetry 97 O2 Sat by Pulse Oximetry 96 O2 Sat by Pulse Oximetry 95 O2 Sat by Pulse Oximetry 92 O2 Sat by Pulse Oximetry 94 O2 Sat by Pulse Oximetry 93 O2 Sat by Pulse Oximetry 94 O2 Sat by Pulse Oximetry 98 O2 Sat by Pulse Oximetry 98 O2 Sat by Pulse Oximetry 93 O2 Sat by Pulse Oximetry 97 O2 Sat by Pulse Oximetry 94 O2 Sat by Pulse Oximetry 94 O2 Sat by Pulse Oximetry 97 O2 Sat by Pulse Oximetry 92 O2 Sat by Pulse Oximetry 92 O2 Sat by Pulse Oximetry 92 O2 Sat by Pulse Oximetry 95 O2 Sat by Pulse Oximetry 92 O2 Sat by Pulse Oximetry 92 O2 Sat by Pulse Oximetry 95 O2 Sat by Pulse Oximetry 95 O2 Sat by Pulse Oximetry 95 O2 Sat by Pulse Oximetry 93 O2 Sat by Pulse Oximetry 97 O2 Sat by Pulse Oximetry 93 O2 Sat by Pulse Oximetry 95 O2 Sat by Pulse Oximetry 98 O2 Sat by Pulse Oximetry 96 Intake and Output: Intake & Output 03/03/23 03/04/23 03/05/23 03/06/23 11:59 11:59 11:59 11:59 Intake Total 605 / 605 1080 / 1080 0 / 0 Output Total 0 / 0 1590 / 1590 850 / 850 Balance 605 / 605 -510 / -510 -850 / -850 Physical Exam Oriented: Normal Eyes: Normal Ear: Normal Nose: Discharge Throat: Red Respiratory: Wheezes Cardiovascular: Normal : Normal Auscultation: Bowel Sounds: Normal Tenderness: Normal Skin: Normal Musculoskeletal: Normal Psychiatric: Normal Mood Description: Calm Affect: Normal Speech Pattern: Clear and Appropriate Laboratory and Diagnostics 03/05/23 04:26 03/05/23 04:26 Labs: 03/03/23 17:50 Blood Blood Culture - Preliminary 03/03/23 17:40 Blood Blood Culture - Preliminary 03/03/23 17:54 Sputum - Expectorated Sputum Sputum Culture - Final 03/03/23 17:54 Sputum - Expectorated Sputum - Final Laboratory WBC 19.7 X10^3/uL (3.6-10.0) H 03/05/23 04:26 RBC 4.88 X10^6/uL (4.7-6.0) 03/05/23 04:26 Hgb 13.4 g/dL (13.5-18.0) L 03/05/23 04:26 Hct 41.4 % (42.0-54.0) L 03/05/23 04:26 MCV 84.9 fL (80.0-100.0) 03/05/23 04:26 MCH 27.5 pg (27.0-34.0) 03/05/23 04:26 MCHC 32.4 g/dL (33.0-35.0) L 03/05/23 04:26 RDW 14.4 % (11.6-16.5) 03/05/23 04:26 Plt Count 245 X10^3/uL (150.0-450.0) 03/05/23 04:26 MPV 8.3 fL (7.4-11.0) 03/05/23 04:26 Neut % (Auto) 89.9 % (42.0-75.0) H 03/05/23 04:26 Lymph % (Auto) 5.3 % (21.0-51.0) L 03/05/23 04:26 [place] % (Auto) 4.4 % (0.0-13.0) 03/05/23 04:26 Eos % (Auto) 0.0 % (0.9-2.9) L 03/05/23 04:26 Baso % (Auto) 0.4 % (0.2-1.0) 03/05/23 04:26 Neut # (Auto) 17.6 x10^3/uL (2.2-4.8) H 03/05/23 04:26 Lymph # (Auto) 1.0 X10^3/uL (1.3-2.9) L 03/05/23 04:26 [place] # (Auto) 0.9 x10^3/uL (0.3-0.8) H 03/05/23 04:26 Eos # (Auto) 0.0 x10^3/uL (0.0-0.2) 03/05/23 04:26 Baso # (Auto) 0.1 X10^3/uL (0.0-0.1) 03/05/23 04:26 Absolute Nucleated RBC 0.0 /100WBC 03/05/23 04:26 Sodium 134 mmol/L (136-145) L 03/05/23 04:26 Corrected Sodium 135 mmol/L (136-145) L 03/05/23 04:26 Potassium 4.1 mmol/L (3.5-5.1) 03/05/23 04:26 Chloride 96 mmol/L (98-107) L 03/05/23 04:26 Carbon Dioxide 34.6 mmol/L (21-32) H 03/05/23 04:26 BUN 23 mg/dL (7-18) H 03/05/23 04:26 Creatinine 1.02 mg/dL (0.70-1.30) 03/05/23 04:26 Est GFR (MDRD) Af Amer > 60 (>60) 03/05/23 04:26 Est GFR (MDRD) Non-Af > 60 (>60) 03/05/23 04:26 Glucose 134 mg/dL (65-99) H 03/05/23 04:26 Lactic Acid 1.9 mmol/L (0.4-2.0) 03/03/23 17:40 Calcium 7.9 mg/dL (8.5-10.1) L 03/05/23 04:26 Corrected Calcium 8.7 mg/dL (8.5-10.1) 03/05/23 04:26 Total Bilirubin 0.50 mg/dL (0.2-1.0) 03/05/23 04:26 AST 17 Units/L (15-37) 03/05/23 04:26 ALT 28 Units/L (12-78) 03/05/23 04:26 Alkaline Phosphatase 77 Units/L (46-116) 03/05/23 04:26 B-Natriuretic Peptide 1080 pg/mL (0-79) H 03/05/23 04:26 Total Protein 7.4 g/dL (6.4-8.2) 03/05/23 04:26 Albumin 3.0 g/dL (3.4-5.0) L 03/05/23 04:26 Globulin 4.4 g/dL (2.5-4.5) 03/05/23 04:26 Albumin/Globulin Ratio 0.7 Ratio (1.1-2.1) L 03/05/23 04:26 Lipase 17 Units/L (16-77) 03/03/23 17:40 SARS-CoV-2 (PCR) Negative (NEGATIVE) 03/03/23 17:48 Influenza Type A (PCR) Negative (NEGATIVE) 03/03/23 17:48 Influenza Type B (PCR) Negative (NEGATIVE) 03/03/23 17:48 RSV (PCR) Positive (NEGATIVE) A 03/03/23 17:48 Plan (1) RSV infection: Status: Acute Plan: ADMIT, SUPPLEMENTAL OXYGEN, ROCEPHIN 1G IV DAILY, DUONEBS TID, PULMICORT NEBS BID, SOLU-MEDROL 40MG IV Q12H, BP, BS AND CARDIAC MONITORING I&OS (2) Acute bronchitis: Status: Acute Qualifiers: Bronchitis organism: unspecified organism Qualified Code(s): J20.9 - Acute bronchitis, unspecified (3) Hypoxia: Status: Acute (4) CHF (congestive heart failure): Status: Acute Qualifiers: Heart failure chronicity: acute on chronic Heart failure type: unspecified Qualified Code(s): I50.9 - Heart failure, unspecified Plan: RESUME COREG, BUMEX, ALDACTONE (5) Morbid obesity: Status: Acute (6) Hyperlipidemia: Status: Chronic Qualifiers: Hyperlipidemia type: mixed hyperlipidemia Plan: RESUME LIPITOR
[2023-03-05] MEDS: LIPITOR TAB 20 MG PO SCH (20:55)
[2023-03-05] MEDS: MUCINEX EXPECTORANT PO SCH (20:55)
--- NOTE | 2023-03-06 00:15 | RAD ---
EXAM:CHEST, 1 VIEWHISTORY:SOB, RSV+;COMPARISON:March 04, 2023.TECHNIQUE:A single frontal view of the chest was obtained.FINDINGS:There are multiple EKG leads and wires seen overlying the patient. There is a permanent pacemaker overlying the left chest wall with the proximal lead in the right atrium and distal lead in the right ventricle. There is severe cardiomegaly with left ventricular hypertrophy. The heart is normal in size. There is increased density to the right medial lung base but this could be secondary to the pulmonary markings.. There is no effusion. There is no pneumothorax. The osseous structures are intact.IMPRESSION:Severe cardiomegaly.No definite evidence for an infiltrate or effusion.Permanent pacemaker in-situ.THIS IS AN ELECTRONICALLY VERIFIED FINAL [id number]/2023 12:12 AM - Electronically signed by Andie Valverde MD
[2023-03-06] MEDS: ROBITUSSIN DM PO PRN ×2 (01:30→06:36)
[2023-03-06 05:20] LABS: BASOPHILS % (AUTO) 0.2 % (0.2-1.0); HEMATOCRIT 43.1 % (42.0-54.0); HEMOGLOBIN 13.6 g/dL (13.5-18.0); LYMPHOCYTES # (AUTO) 0.9 X10^3/uL (1.3-2.9); LYMPHOCYTES % (AUTO) 4.4 % (21.0-51.0); MEAN CORPUSCULAR HEMOGLOBIN 27.1 pg (27.0-34.0); MEAN CORPUSCULAR HGB CONC 31.7 g/dL (33.0-35.0); MEAN CORPUSCULAR VOLUME 85.4 fL (80.0-100.0); MEAN PLATELET VOLUME 8.5 fL (7.4-11.0); MONOCYTES # (AUTO) 0.9 x10^3/uL (0.3-0.8); MONOCYTES % (AUTO) 4.3 % (0.0-13.0); NEUTROPHILS # (AUTO) 18.8 x10^3/uL (2.2-4.8); NEUTROPHILS % (AUTO) 91.1 % (42.0-75.0); PLATELET COUNT 276 X10^3/uL (150.0-450.0); RED BLOOD COUNT 5.04 X10^6/uL (4.7-6.0); RED CELL DISTRIBUTION WIDTH 14.3 % (11.6-16.5); WHITE BLOOD COUNT 20.6 X10^3/uL (3.6-10.0)
[2023-03-06 05:25] LABS: ALANINE AMINOTRANSFERASE 25 Units/L (12-78); ALKALINE PHOSPHATASE 86 Units/L (46-116); ASPARTATE AMINO TRANSFERASE 17 Units/L (15-37); BLOOD UREA NITROGEN 21 mg/dL (7-18); CALCIUM 7.9 mg/dL (8.5-10.1); CARBON DIOXIDE 34.8 mmol/L (21-32); CHLORIDE 97 mmol/L (98-107); COR CA(FOR HYPOALB) 8.7 mg/dL (8.5-10.1); COR NA(FOR HYPERGLY) 137 mmol/L (136-145); GLUCOSE 113 mg/dL (65-99); POTASSIUM 4.2 mmol/L (3.5-5.1); SODIUM 137 mmol/L (136-145); TOTAL PROTEIN 7.5 g/dL (6.4-8.2); eGFR NON BLACK RACES > 60 (>60)
[2023-03-06] MEDS: APRESOLINE TAB 10 MG PO SCH ×3 (05:37→21:13)
[2023-03-06 05:48] LABS: BAND NEUTROPHILS % 4 % (0-10)
[2023-03-06 05:49] LABS: PLATELET MORPHOLOGY COMMENT NORMAL (NORMAL); STOMATOCYTES SLIGHT; TARGET CELLS SLIGHT
[2023-03-06] MEDS: DUONEB 0.5 MG/3 MG (3 mL) NEB SCH ×3 (06:17→20:30)
[2023-03-06] MEDS: SOLU-Medrol 40 MG VIAL IVP SCH ×2 (08:55→21:21)
[2023-03-06] MEDS: FARXIGA PO SCH (08:55)
[2023-03-06] MEDS: BUMEX TAB 1 MG PO SCH (08:55)
[2023-03-06] MEDS: ROCEPHIN VIAL 1 GRAM 1 G in NS 100 ML IV 100 ML IV SCH (08:55)
[2023-03-06] MEDS: ALDACTONE TAB 25 MG PO SCH (08:56)
[2023-03-06] MEDS: MUCINEX EXPECTORANT PO SCH ×2 (08:56→21:21)
[2023-03-06] MEDS: COREG TAB 12.5 MG PO SCH ×2 (08:56→21:12)
[2023-03-06] MEDS: IMDUR PO SCH (08:56)
[2023-03-06] MEDS: PULMICORT NEB TX 0.5 MG NEB SCH ×2 (09:16→20:30)
--- NOTE | 2023-03-06 13:49 | PCM.PROG ---
Progress Note Progress Note for Day of Date of Exam: 03/06/23 Subjective Subjective: PT IS 32 BM, ICU PT WITH ACUTE RESPIRATORY DISTRESS DUE TO RVS. PT HAS NON ISCHEMIC CARDIOMYOPATHY AND CHRONIC MEDICATION MANAGEMENT HAS BEEN RESUMED AND CARDIOLOGY CONSULTING. PT IS CURRENTLY ON IV ROCEPHIN, SPUTUM CULTURE +MODERATE GRAM+. RENAL FUNCTION HAS IMPROVED AND STABLE AT 21/CREAT 1. PT HAD ROOM AIR ABG WITH PO2 75. PT HAS BEEN AFEBRILE AND BP 122/66. PT CONTINUES WITH CO MUCOUS PRODUCTION, BUT STATES "ITS BREAKING LOOSE" IN CHEST. PT REPORT IMPROVING COUGH AND PT DENIES ANY CHEST PAIN OR NAUSEA THIS MORNING. PT IS CURRENTLY ON IV ATBX AND SOLU MEDROL. WBC 20.6 TODAY, DECREASED SOLU MEDROL TO Q 12 HRS AND HE HAS TOLERATED. PT ENCOURAGED ORAL HYDRATION AND PULMONARY TOILETING WITH IS AND COUGH/DEEP BREATHING. DIAGNOSTIC TESTS AND LABS REVIEWED WITH PT THIS MORNING. Past Medical Family Social History Allergies: Allergies orange Allergy (Verified 03/03/23 21:52) Vital Signs and I&O's Vital Signs: Vital Signs Temperature 97.4 F Pulse Rate 59 Pulse Rate 50 Pulse Rate 49 Pulse Rate 50 Pulse Rate 57 Pulse Rate 50 Pulse Rate 53 Pulse Rate 50 Pulse Rate 53 Pulse Rate 54 Pulse Rate 54 Pulse Rate 60 Pulse Rate 56 Pulse Rate 61 Pulse Rate 76 Pulse Rate 84 Pulse Rate 57 Pulse Rate 63 Pulse Rate 63 Pulse Rate 96 Pulse Rate 60 Pulse Rate 56 Pulse Rate 62 Pulse Rate 59 Pulse Rate 56 Pulse Rate 56 Pulse Rate 56 Pulse Rate 56 Pulse Rate 54 Pulse Rate 55 Pulse Rate 78 Pulse Rate 58 Pulse Rate 58 Pulse Rate 58 Pulse Rate 65 Pulse Rate 59 Pulse Rate 52 Pulse Rate 51 Pulse Rate 50 Pulse Rate 51 Pulse Rate 51 Respiratory Rate 21 Respiratory Rate 19 Respiratory Rate 17 Respiratory Rate 17 Respiratory Rate 28 Respiratory Rate 17 Respiratory Rate 17 Respiratory Rate 12 Respiratory Rate 0 Respiratory Rate 24 Respiratory Rate 24 Respiratory Rate 12 Respiratory Rate 19 Respiratory Rate 24 Respiratory Rate 31 Respiratory Rate 21 Respiratory Rate 22 Respiratory Rate 19 Respiratory Rate 17 Respiratory Rate 19 Respiratory Rate 20 Respiratory Rate 20 Respiratory Rate 20 Respiratory Rate 21 Respiratory Rate 24 Respiratory Rate 22 Respiratory Rate 22 Respiratory Rate 28 Respiratory Rate 24 Respiratory Rate 17 Blood Pressure 122/66 Blood Pressure 112/62 Blood Pressure 134/63 Blood Pressure 139/67 Blood Pressure 139/79 Blood Pressure 133/80 Blood Pressure 133/78 Blood Pressure 132/60 Blood Pressure 149/67 Blood Pressure 112/74 Blood Pressure 120/61 Blood Pressure 120/61 O2 Sat by Pulse Oximetry 92 O2 Sat by Pulse Oximetry 93 O2 Sat by Pulse Oximetry 98 O2 Sat by Pulse Oximetry 98 O2 Sat by Pulse Oximetry 92 O2 Sat by Pulse Oximetry 94 O2 Sat by Pulse Oximetry 96 O2 Sat by Pulse Oximetry 96 O2 Sat by Pulse Oximetry 96 O2 Sat by Pulse Oximetry 94 O2 Sat by Pulse Oximetry 95 O2 Sat by Pulse Oximetry 96 O2 Sat by Pulse Oximetry 98 O2 Sat by Pulse Oximetry 97 O2 Sat by Pulse Oximetry 97 O2 Sat by Pulse Oximetry 96 O2 Sat by Pulse Oximetry 98 O2 Sat by Pulse Oximetry 98 O2 Sat by Pulse Oximetry 97 O2 Sat by Pulse Oximetry 97 O2 Sat by Pulse Oximetry 97 O2 Sat by Pulse Oximetry 97 O2 Sat by Pulse Oximetry 98 O2 Sat by Pulse Oximetry 97 O2 Sat by Pulse Oximetry 96 O2 Sat by Pulse Oximetry 97 O2 Sat by Pulse Oximetry 96 O2 Sat by Pulse Oximetry 97 O2 Sat by Pulse Oximetry 98 O2 Sat by Pulse Oximetry 95 O2 Sat by Pulse Oximetry 98 O2 Sat by Pulse Oximetry 97 O2 Sat by Pulse Oximetry 98 O2 Sat by Pulse Oximetry 97 O2 Sat by Pulse Oximetry 100 O2 Sat by Pulse Oximetry 100 O2 Sat by Pulse Oximetry 87 O2 Sat by Pulse Oximetry 96 O2 Sat by Pulse Oximetry 92 O2 Sat by Pulse Oximetry 96 O2 Sat by Pulse Oximetry 97 Intake and Output: Intake & Output 03/04/23 03/05/23 03/06/23 03/07/23 11:59 11:59 11:59 11:59 Intake Total 605 / 605 1080 / 1080 880 / 880 Output Total 0 / 0 1590 / 1590 1950 / 1949 Balance 605 / 605 -510 / -510 -1070 / -1070 Physical Exam Oriented: Normal Eyes: Normal Ear: Normal Nose: Discharge Throat: Red Respiratory: Wheezes (LOWER LUNG EXPIRATORY WHEEZES) and Rhonchi Cardiovascular: Normal : Normal Auscultation: Bowel Sounds: Normal Tenderness: Normal Skin: Normal Musculoskeletal: Normal Psychiatric: Normal Mood Description: Calm Affect: Normal Speech Pattern: Clear and Appropriate Laboratory and Diagnostics 03/06/23 04:15 03/06/23 04:15 Labs: 03/03/23 17:50 Blood Blood Culture - Preliminary 03/03/23 17:40 Blood Blood Culture - Preliminary 03/03/23 17:54 Sputum - Expectorated Sputum Sputum Culture - Final 03/03/23 17:54 Sputum - Expectorated Sputum - Final Laboratory WBC 20.6 X10^3/uL (3.6-10.0) H 03/06/23 04:15 RBC 5.04 X10^6/uL (4.7-6.0) 03/06/23 04:15 Hgb 13.6 g/dL (13.5-18.0) 03/06/23 04:15 Hct 43.1 % (42.0-54.0) 03/06/23 04:15 MCV 85.4 fL (80.0-100.0) 03/06/23 04:15 MCH 27.1 pg (27.0-34.0) 03/06/23 04:15 MCHC 31.7 g/dL (33.0-35.0) L 03/06/23 04:15 RDW 14.3 % (11.6-16.5) 03/06/23 04:15 Plt Count 276 X10^3/uL (150.0-450.0) 03/06/23 04:15 Plt Count Comment Adequate (ADEQUATE) 03/06/23 04:15 MPV 8.5 fL (7.4-11.0) 03/06/23 04:15 Neut % (Auto) 91.1 % (42.0-75.0) H 03/06/23 04:15 Lymph % (Auto) 4.4 % (21.0-51.0) L 03/06/23 04:15 [place] % (Auto) 4.3 % (0.0-13.0) 03/06/23 04:15 Eos % (Auto) 0.0 % (0.9-2.9) L 03/06/23 04:15 Baso % (Auto) 0.2 % (0.2-1.0) 03/06/23 04:15 Neut # (Auto) 18.8 x10^3/uL (2.2-4.8) H 03/06/23 04:15 Lymph # (Auto) 0.9 X10^3/uL (1.3-2.9) L 03/06/23 04:15 [place] # (Auto) 0.9 x10^3/uL (0.3-0.8) H 03/06/23 04:15 Eos # (Auto) 0.0 x10^3/uL (0.0-0.2) 03/06/23 04:15 Baso # (Auto) 0.0 X10^3/uL (0.0-0.1) 03/06/23 04:15 Absolute Nucleated RBC 0.0 /100WBC 03/06/23 04:15 Total Counted 100 03/06/23 04:15 Neutrophils % (Manual) 83 % (39-76) H 03/06/23 04:15 Band Neutrophils % 4 % (0-10) 03/06/23 04:15 Lymphocytes % (Manual) 6 % (13-43) L 03/06/23 04:15 Monocytes % (Manual) 7 % (4-9) 03/06/23 04:15 Plt Morphology Comment Normal (NORMAL) 03/06/23 04:15 RBC Morphology Abnormal (NORMAL) 03/06/23 04:15 Target Cells Slight A 03/06/23 04:15 Stomatocytes Slight A 03/06/23 04:15 Sodium 137 mmol/L (136-145) 03/06/23 04:15 Corrected Sodium 137 mmol/L (136-145) 03/06/23 04:15 Potassium 4.2 mmol/L (3.5-5.1) 03/06/23 04:15 Chloride 97 mmol/L (98-107) L 03/06/23 04:15 Carbon Dioxide 34.8 mmol/L (21-32) H 03/06/23 04:15 BUN 21 mg/dL (7-18) H 03/06/23 04:15 Creatinine 1.00 mg/dL (0.70-1.30) 03/06/23 04:15 Est GFR (MDRD) Af Amer > 60 (>60) 03/06/23 04:15 Est GFR (MDRD) Non-Af > 60 (>60) 03/06/23 04:15 Glucose 113 mg/dL (65-99) H 03/06/23 04:15 Lactic Acid 1.9 mmol/L (0.4-2.0) 03/03/23 17:40 Calcium 7.9 mg/dL (8.5-10.1) L 03/06/23 04:15 Corrected Calcium 8.7 mg/dL (8.5-10.1) 03/06/23 04:15 Total Bilirubin 0.40 mg/dL (0.2-1.0) 03/06/23 04:15 AST 17 Units/L (15-37) 03/06/23 04:15 ALT 25 Units/L (12-78) 03/06/23 04:15 Alkaline Phosphatase 86 Units/L (46-116) 03/06/23 04:15 B-Natriuretic Peptide 1080 pg/mL (0-79) H 03/05/23 04:26 Total Protein 7.5 g/dL (6.4-8.2) 03/06/23 04:15 Albumin 3.0 g/dL (3.4-5.0) L 03/06/23 04:15 Globulin 4.5 g/dL (2.5-4.5) 03/06/23 04:15 Albumin/Globulin Ratio 0.7 Ratio (1.1-2.1) L 03/06/23 04:15 Lipase 17 Units/L (16-77) 03/03/23 17:40 SARS-CoV-2 (PCR) Negative (NEGATIVE) 03/03/23 17:48 Influenza Type A (PCR) Negative (NEGATIVE) 03/03/23 17:48 Influenza Type B (PCR) Negative (NEGATIVE) 03/03/23 17:48 RSV (PCR) Positive (NEGATIVE) A 03/03/23 17:48 Plan (1) RSV infection: Status: Acute Plan: ADMIT, SUPPLEMENTAL OXYGEN, ROCEPHIN 1G IV DAILY, DUONEBS TID, PULMICORT NEBS BID, SOLU-MEDROL 40MG IV Q12H, BP, BS AND CARDIAC MONITORING I&OS (2) Acute bronchitis: Status: Acute Qualifiers: Bronchitis organism: unspecified organism Qualified Code(s): J20.9 - Acute bronchitis, unspecified (3) Hypoxia: Status: Acute (4) CHF (congestive heart failure): Status: Acute Qualifiers: Heart failure chronicity: acute on chronic Heart failure type: unspecified Qualified Code(s): I50.9 - Heart failure, unspecified Plan: RESUME COREG, BUMEX, ALDACTONE (5) Morbid obesity: Status: Acute (6) Hyperlipidemia: Status: Chronic Qualifiers: Hyperlipidemia type: mixed hyperlipidemia Plan: RESUME LIPITOR
[2023-03-06] MEDS: LIPITOR TAB 20 MG PO SCH (21:21)
[2023-03-06] MEDS ORDERED: AMBIEN PO PRN (21:24)
[2023-03-07 04:46] LABS: BASOPHILS # (AUTO) 0.1 X10^3/uL (0.0-0.1); BASOPHILS % (AUTO) 0.3 % (0.2-1.0); HEMATOCRIT 43.1 % (42.0-54.0); HEMOGLOBIN 13.7 g/dL (13.5-18.0); LYMPHOCYTES # (AUTO) 0.6 X10^3/uL (1.3-2.9); LYMPHOCYTES % (AUTO) 3.6 % (21.0-51.0); MEAN CORPUSCULAR HEMOGLOBIN 27.2 pg (27.0-34.0); MEAN CORPUSCULAR HGB CONC 31.8 g/dL (33.0-35.0); MEAN CORPUSCULAR VOLUME 85.4 fL (80.0-100.0); MEAN PLATELET VOLUME 8.1 fL (7.4-11.0); MONOCYTES # (AUTO) 0.6 x10^3/uL (0.3-0.8); MONOCYTES % (AUTO) 3.6 % (0.0-13.0); NEUTROPHILS # (AUTO) 15.4 x10^3/uL (2.2-4.8); NEUTROPHILS % (AUTO) 92.5 % (42.0-75.0); PLATELET COUNT 285 X10^3/uL (150.0-450.0); RED BLOOD COUNT 5.04 X10^6/uL (4.7-6.0); RED CELL DISTRIBUTION WIDTH 14.5 % (11.6-16.5); WHITE BLOOD COUNT 16.6 X10^3/uL (3.6-10.0)
[2023-03-07 04:57] LABS: ALANINE AMINOTRANSFERASE 47 Units/L (12-78); ALBUMIN 2.9 g/dL (3.4-5.0); ALKALINE PHOSPHATASE 101 Units/L (46-116); ASPARTATE AMINO TRANSFERASE 32 Units/L (15-37); BLOOD UREA NITROGEN 22 mg/dL (7-18); CALCIUM 7.8 mg/dL (8.5-10.1); CARBON DIOXIDE 38.2 mmol/L (21-32); CHLORIDE 100 mmol/L (98-107); COR CA(FOR HYPOALB) 8.7 mg/dL (8.5-10.1); COR NA(FOR HYPERGLY) 141 mmol/L (136-145); CREATININE 1.07 mg/dL (0.70-1.30); GLUCOSE 129 mg/dL (65-99); POTASSIUM 4.2 mmol/L (3.5-5.1); SODIUM 140 mmol/L (136-145); eGFR NON BLACK RACES > 60 (>60)
[2023-03-07] MEDS: APRESOLINE TAB 10 MG PO SCH ×2 (05:10→13:58)
[2023-03-07 05:17] LABS: PLATELET MORPHOLOGY COMMENT NORMAL (NORMAL); STOMATOCYTES SLIGHT; TARGET CELLS SLIGHT
[2023-03-07] MEDS: DUONEB 0.5 MG/3 MG (3 mL) NEB SCH ×2 (05:45→13:30)
[2023-03-07] MEDS: BUMEX TAB 1 MG PO SCH (08:00)
[2023-03-07] MEDS: ALDACTONE TAB 25 MG PO SCH (08:00)
[2023-03-07] MEDS: ROCEPHIN VIAL 1 GRAM 1 G in NS 100 ML IV 100 ML IV SCH (08:00)
[2023-03-07] MEDS: FARXIGA PO SCH (08:00)
[2023-03-07] MEDS: SOLU-Medrol 40 MG VIAL IVP SCH (08:00)
[2023-03-07] MEDS: MUCINEX EXPECTORANT PO SCH (08:01)
[2023-03-07] MEDS: COREG TAB 12.5 MG PO SCH (08:01)
[2023-03-07] MEDS: IMDUR PO SCH (08:01)
[2023-03-07] MEDS ORDERED: NS 100 ML IV 100 ML ONE (09:06)
[2023-03-07] MEDS: PULMICORT NEB TX 0.5 MG NEB SCH (09:09)
[2023-03-07 13:52] VITALS: TEMP 97.2
[2023-03-07 14:03] VITALS: BP 140/81; PULSE 68; RESP 27; O2SAT 93
--- NOTE | 2023-03-07 17:52 | PCM.DCPLAN ---
DISCHARGE SUMMARY Admission Date Date of Admission: 03/03/23 Discharge Date Discharge Date: 03/07/23 Admission Diagnoses (1) RSV infection: Status: Acute (2) Acute bronchitis: Status: Acute (3) Hypoxia: Status: Acute (4) CHF (congestive heart failure): Status: Acute (5) Morbid obesity: Status: Acute (6) Hyperlipidemia: Status: Chronic Discharge Diagnoses Discharge Diagnosis: 1. RSV infection improving 2. Hypoxia improved and stable on 2 L of O2 via nasal cannula 3. Acute bronchitis improving 4. Congestive heart failure improving 5. Obesity 6. Hyperlipidemia Discharge Medications Discharge Medications: Home Medication List bumetanide 1 mg tablet 1 mg PO 1XD 03/03/23 [History] colchicine 0.5 mg tablet 0.5 mg PO 1XD 03/03/23 [History] empagliflozin 25 mg tablet (Jardiance) 25 mg PO 1XD 03/03/23 [History] albuterol sulfate 90 mcg/actuation aerosol inhaler 2 inh inhalation ONCE PRN #1 g 03/07/23 [Rx] amoxicillin 875 mg-potassium clavulanate 125 mg tablet 1 tab PO Q12H #14 tabs 03/07/23 [Rx] budesonide-formoterol HFA 160 mcg-4.5 mcg/actuation aerosol inhaler (Symbicort) 1 inh inhalation BID 30 days #1 g 03/07/23 [Rx] methylprednisolone 4 mg tablets in a dose pack (Medrol (Fabricio)) 4 mg PO ONCE #1 ea 03/07/23 [Rx] Prescriptions: albuterol sulfate CESAR INMAN amoxicillin-pot clavulanate CESAR INMAN budesonide-formoterol [Symbicort] CESAR INMAN methylprednisolone [Medrol (Fabricio)] CESAR INMAN Hospital Course Vital Signs: Vital Signs Temperature 97.2 F Pulse Rate 68 Pulse Rate 66 Pulse Rate 76 Pulse Rate 74 Pulse Rate 68 Pulse Rate 67 Pulse Rate 65 Pulse Rate 63 Respiratory Rate 27 Respiratory Rate 22 Respiratory Rate 24 Respiratory Rate 19 Respiratory Rate 22 Respiratory Rate 22 Respiratory Rate 20 Respiratory Rate 21 Blood Pressure 140/81 Blood Pressure 107/69 Blood Pressure 111/62 Blood Pressure 138/63 O2 Sat by Pulse Oximetry 93 O2 Sat by Pulse Oximetry 92 O2 Sat by Pulse Oximetry 94 O2 Sat by Pulse Oximetry 97 O2 Sat by Pulse Oximetry 97 O2 Sat by Pulse Oximetry 95 O2 Sat by Pulse Oximetry 97 O2 Sat by Pulse Oximetry 96 Latest Lab Results: Laboratory Last Values WBC 16.6 X10^3/uL (3.6-10.0) H 03/07/23 04:20 RBC 5.04 X10^6/uL (4.7-6.0) 03/07/23 04:20 Hgb 13.7 g/dL (13.5-18.0) 03/07/23 04:20 Hct 43.1 % (42.0-54.0) 03/07/23 04:20 MCV 85.4 fL (80.0-100.0) 03/07/23 04:20 MCH 27.2 pg (27.0-34.0) 03/07/23 04:20 MCHC 31.8 g/dL (33.0-35.0) L 03/07/23 04:20 RDW 14.5 % (11.6-16.5) 03/07/23 04:20 Plt Count 285 X10^3/uL (150.0-450.0) 03/07/23 04:20 Plt Count Comment Adequate (ADEQUATE) 03/07/23 04:20 MPV 8.1 fL (7.4-11.0) 03/07/23 04:20 Neut % (Auto) 92.5 % (42.0-75.0) H 03/07/23 04:20 Lymph % (Auto) 3.6 % (21.0-51.0) L 03/07/23 04:20 [place] % (Auto) 3.6 % (0.0-13.0) 03/07/23 04:20 Eos % (Auto) 0.0 % (0.9-2.9) L 03/07/23 04:20 Baso % (Auto) 0.3 % (0.2-1.0) 03/07/23 04:20 Neut # (Auto) 15.4 x10^3/uL (2.2-4.8) H 03/07/23 04:20 Lymph # (Auto) 0.6 X10^3/uL (1.3-2.9) L 03/07/23 04:20 [place] # (Auto) 0.6 x10^3/uL (0.3-0.8) 03/07/23 04:20 Eos # (Auto) 0.0 x10^3/uL (0.0-0.2) 03/07/23 04:20 Baso # (Auto) 0.1 X10^3/uL (0.0-0.1) 03/07/23 04:20 Absolute Nucleated RBC 0.0 /100WBC 03/07/23 04:20 Total Counted 100 03/07/23 04:20 Neutrophils % (Manual) 90 % (39-76) H 03/07/23 04:20 Band Neutrophils % 4 % (0-10) 03/06/23 04:15 Lymphocytes % (Manual) 7 % (13-43) L 03/07/23 04:20 Monocytes % (Manual) 3 % (4-9) L 03/07/23 04:20 Plt Morphology Comment Normal (NORMAL) 03/07/23 04:20 RBC Morphology Abnormal (NORMAL) 03/07/23 04:20 Target Cells Slight A 03/07/23 04:20 Stomatocytes Slight A 03/07/23 04:20 Sodium 140 mmol/L (136-145) 03/07/23 04:20 Corrected Sodium 141 mmol/L (136-145) 03/07/23 04:20 Potassium 4.2 mmol/L (3.5-5.1) 03/07/23 04:20 Chloride 100 mmol/L (98-107) 03/07/23 04:20 Carbon Dioxide 38.2 mmol/L (21-32) H 03/07/23 04:20 BUN 22 mg/dL (7-18) H 03/07/23 04:20 Creatinine 1.07 mg/dL (0.70-1.30) 03/07/23 04:20 Est GFR (MDRD) Af Amer > 60 (>60) 03/07/23 04:20 Est GFR (MDRD) Non-Af > 60 (>60) 03/07/23 04:20 Glucose 129 mg/dL (65-99) H 03/07/23 04:20 Lactic Acid 1.9 mmol/L (0.4-2.0) 03/03/23 17:40 Calcium 7.8 mg/dL (8.5-10.1) L 03/07/23 04:20 Corrected Calcium 8.7 mg/dL (8.5-10.1) 03/07/23 04:20 Total Bilirubin 0.30 mg/dL (0.2-1.0) 03/07/23 04:20 AST 32 Units/L (15-37) 03/07/23 04:20 ALT 47 Units/L (12-78) 03/07/23 04:20 Alkaline Phosphatase 101 Units/L (46-116) 03/07/23 04:20 B-Natriuretic Peptide 1080 pg/mL (0-79) H 03/05/23 04:26 Total Protein 7.0 g/dL (6.4-8.2) 03/07/23 04:20 Albumin 2.9 g/dL (3.4-5.0) L 03/07/23 04:20 Globulin 4.1 g/dL (2.5-4.5) 03/07/23 04:20 Albumin/Globulin Ratio 0.7 Ratio (1.1-2.1) L 03/07/23 04:20 Lipase 17 Units/L (16-77) 03/03/23 17:40 SARS-CoV-2 (PCR) Negative (NEGATIVE) 03/03/23 17:48 Influenza Type A (PCR) Negative (NEGATIVE) 03/03/23 17:48 Influenza Type B (PCR) Negative (NEGATIVE) 03/03/23 17:48 RSV (PCR) Positive (NEGATIVE) A 03/03/23 17:48 Hospital Course: IS A 32 YEAR OLD BLACK MALE. HE HAS A PMH OF ANEMIA, CHF, DYSLIPIDEMIA, HTN, OBESITY. PATIENT REPORTS THAT HE RECENTLY MOVED TO THE AREA AND DOES NOT HAVE A LOCAL PRIMARY CARE PHYSICIAN OR ASSOCIATE JUVEN[place] COURT JUDGE. ON ARRIVAL, HE COMPLAINED OF FEVER, CHILLS, PRODUCTIVE COUGH, AND SHORTNESS OF BREATH. HE REPORTS THAT SHORTNESS OF BREATH IS WORSE ON EXERTION. HE ADMITS TO COMPLIANCE WITH HIS CHF MEDICATIONS. PATIENT REPORTS THAT HIS SYMPTOMS STARTED 4-5 DAYS AGO AND HAVE PROGRESSIVELY GOTTEN WORSE. HE DOES ADMIT TO SOME NASAL CONGESTION, BUT DENIES BOWEL OR BLADDER ISSUES. ON ARRIVAL TO THE HOSPITAL, HIS VITALS WERE: 100.7-88-20-82%-120/81. HE WAS PLACED ON OXYGEN VIA NASAL CANNULA AT 2 LPM. SATURATIONS INCREASED TO 99%. LABS WERE OBTAINED. WBC 12.3, RBC 5.03, HGB 13.7, HCT 42.9, PLT COUNT 269, SODIUM 134, POTASSIUM 4.1, CHLORIDE 94, BUN 22, CREATININE 1.43, GLUCOSE 133, CALCIUM 7.9, TOTAL BILI 1.40, AST 32, ALT 38, ALK PHOS 67, TOTAL PROTEIN 8.3, LIPASE 17. COVID AND INFLUENZA WERE NEGATIVE. RSV POSITIVE. BLOOD AND SPUTUM CULTURES WERE SET UP. A RESPIRATORY VIRAL PANEL WAS ALSO SET UP. EKG WAS OBTAINED AND REVEALED: SINUS RHYTHM WITH 1ST DEGREE AV BLOCK WITH PREMATURE ATRIAL COMPLEXES WITH ABBERANT CONDUCTION. HR 85 BPM. IN THE ER, HE WAS GIVEN ROCEPHIN 1G IV X 1, DUONEBS X 1, SOLU-MEDROL 125MG IV X 1. HE WAS ADMITTED TO THE HOSPITAL INPATIENT STATUS FOR FURTHER EVALUATION AND TREATMENT OF RSV, ACUTE BRONCHITIS, HYPOXIA, AND CHF. HE WAS STARTED ON ROCEPHIN 1G IV DAILY, DUONEBS TID, PULMICORT NEBS BID, SOLU-MEDROL 40MG IV Q8H. HIS HOME MEDICATIONS OF LIPITOR, BUMEX, COREG, IMDUR, AND ALDACTONE WERE RESUMED. WE DID RESTART THE COREG AT 12.5MG INSTEAD OF 25MG. WE WILL HOLD THE ENTRESTO FOR NOW. WE WILL CONSULT , ASSOCIATE JUV[employer] COURT JUDGE, FOR EVALUATION OF PATIENT. WE WILL OBTAIN AN ECHOCARDIOGRAM. OTHERWISE, WE WILL FOLLOW UP WITH AM LABS AND CONTINUE TO MONITOR. Following day the patient was still coughing up copious amounts of thick sputum. And he continued to do so until the next day. He was still hypoxic and still coughing a lot and remained hypoxic in the low 90s so IV Solu- Medrol was ordered. BNP was done and it was elevated over 1999 but he does have a history of chronic congestive heart failure and he is on Entresto at home twice daily. He also takes spironolactone as well and isosorbide mononitrate [address] Baldwin continued him on IV antibiotics, DuoNebs and the IV Solu- Medrol for another day and when I saw him this morning he was feeling better and his O2 sat was staying in the upper 90s on the 2 L of nasal cannula he was receiving. He is wanting to be discharged today so he can get discharged tomorrow I told him that he could as long as he was standing in the upper 90s without falling. We first want him and he dropped to 80 without oxygen so we walked him again with 2 L nasal cannula and he managed to stay in the upper 90s which is 96 and above. We arrange for him to have home O2 and portable home O2 and once that was arranged we discharge him home. We discharged him home on his regular home medications to be taken as before and also we will be given him Symbicort inhaler 160/4.51 puff twice daily, Augmentin 875 mg 1 p.o. twice daily for 1 week, Medrol Dosepak taken as directed and albuterol metered-dose inhaler 2 puffs every 4-6 hours as needed shortness of breath. Patient was discharged home in stable condition and will be following up with his primary care provider Dr. Baldwin within a week of discharge. He is told if he has any problems to call his primary care physician Dr. Baldwin or if he cannot get a hold of him to go to the closest emergency department for further evaluation and treatment. The patient understands this.
== END 2023-03-07 16:05 | disposition home or self-care (01) | DRG 203 ==
LOC: ER 17:16 → ICU 19:37
PROVIDERS: ADMIT Internal Medicine; ATTEND Internal Medicine
DX: I50.9 Heart failure, unspecified; Z20.822 Contact with and (suspected) exposure to COVID-19; B95.3 Streptococcus pneumoniae as the cause of diseases classified elsewhere; I11.0 Hypertensive heart disease with heart failure; R09.02 Hypoxemia; E78.5 Hyperlipidemia, unspecified; E66.01 Morbid (severe) obesity due to excess calories; J20.5 Acute bronchitis due to respiratory syncytial virus; R06.02 Shortness of breath